=== PATIENT | female | born 1955 | race Asian ===

== ENCOUNTER 2022-10-02 05:57 | Observation (INO) | payer OTHER, BC ==
[2022-09-28 10:49] LABS: Absolute Lymphocytes (CBC) 1.4 K/uL (0.7-4.9); Hematocrit 40.5 % (36.0-45.0); Lymphocytes % 27.4 % (15.3-44.8); MCV 93.9 fL (80-100); MPV 7.4 fL (7.6-11.3); RBC Red Blood Cell Count 4.32 M/uL (3.86-4.86)
[2022-09-28 10:53] LABS: Specific Gravity 1.009 (1.005-1.030); Urine Bilirubin NEGATIVE (Negative); Urine Blood Negative (Negative); Urine Clarity Clear (Clear); Urine Color Light-Yellow (Yellow); Urine Glucose NEGATIVE (Negative); Urine Protein NEGATIVE (Negative); Urine Urobilinogen Normal (Normal)
[2022-09-28 11:24] LABS: Albumin 3.4 g/dL (3.4-5.0); Bilirubin Total 0.4 mg/dL (0.2-1.0); Potassium 3.7 mEq/L (3.5-5.1); Protein, Total 7.7 g/dL (6.4-8.2)
--- NOTE | 2022-09-28 12:25 | RAD REPORT ---
EXAM DESCRIPTION: RAD - Chest Pa And Lat (2 Views) - 09/28/2022 10:39 am CLINICAL HISTORY: pre op left total hip COMPARISON: No comparisons TECHNIQUE: PA and lateral views of the chest were obtained. FINDINGS: The lungs are clear. Heart size is normal and central vasculature is within normal limits. No pleural effusion or pneumothorax seen. No acute bony finding noted. IMPRESSION: No acute cardiopulmonary process.
[2022-09-28 13:29] LABS: Protime INR ND
--- NOTE | 2022-10-01 11:52 | EKG ---
Test Date: 2022-09-28 Test Time: 10:24:53 Aligner: ROHAN MEASUREMENT RESULTS: Intervals: Rate: 64 [place]: 160 QRSD: 86 QT: 418 QTc: 431 [place]: P: 34 [place]: 160 QRS: 6 T: 21 INTERPRETIVE STATEMENTS: Normal sinus rhythm Nonspecific T wave abnormality Abnormal ECG No previous ECG available for comparison Electronically Signed On 10-01-22 11:47:12 CDT by Lizandro Streeter
--- NOTE | 2022-10-01 15:43 | EKG ---
Test Date: 2022-09-28 Test Time: 10:25:24 Ham Clerk: ROHAN MEASUREMENT RESULTS: Intervals: Rate: 61 [place]: 164 QRSD: 82 QT: 418 QTc: 420 [place]: P: 22 [place]: 164 QRS: 7 T: 21 INTERPRETIVE STATEMENTS: Normal sinus rhythm Cannot rule out Anterior infarct, age undetermined Abnormal ECG Compared to ECG 09/28/2022 10:24:53 Myocardial infarct finding now present T-wave abnormality no longer present Electronically Signed On 10-01-22 15:41:57 CDT by Lizandro Streeter
[2022-10-02] MEDS ORDERED: CEFAZOLIN SODIUM 2 GM/VIAL ONE (06:17)
[2022-10-02] MEDS ORDERED: Ringers Lactate 1,000 ML IV ONE ×2 (06:17→08:07)
[2022-10-02] MEDS ORDERED: CELECOXIB 100 MG CAPSULE ONE (06:22)
[2022-10-02] MEDS ORDERED: GABAPENTIN 100 MG CAP ONE (06:23)
[2022-10-02] MEDS ORDERED: ACETAMINOPHEN 500 MG TAB ONE (06:23)
[2022-10-02] MEDS ORDERED: Oxycodone HCl/Acetaminophen 1 TAB TAB ONE (06:23)
[2022-10-02] MEDS ORDERED: BUPIVACAINE 0.75% (PF) 2 ML SP ONE (06:27)
[2022-10-02] MEDS ORDERED: MORPHINE SULFATE/PF 1 MG/ML (10 ML AMP) ONE (06:27)
[2022-10-02] MEDS ORDERED: propofoL 200 MG/20 ML VIAL IV ONE ×2 (06:35→08:58)
[2022-10-02] MEDS ORDERED: LIDOCAINE 2% MPF 5 ML VIAL ONE (06:36)
[2022-10-02] MEDS ORDERED: FENTANYL CITR 100 MCG/2 ML ONE (06:42)
[2022-10-02] MEDS ORDERED: EPINEPHRINE/PF 1 MG/ML AMP ONE (06:42)
[2022-10-02] MEDS ORDERED: MIDAZOLAM HCL 2 MG/2 ML INJ ONE (06:42)
[2022-10-02] MEDS ORDERED: LIDOCAINE 1% MPF 2 ML AMPULE ONE (06:51)
[2022-10-02] MEDS ORDERED: TRANEXAMIC ACID 1,000 MG/10 ML VIAL IV ONE (07:03)
[2022-10-02] MEDS ORDERED: EPHEDRINE SULF 50 MG/ML VIAL ONE (07:46)
[2022-10-02] MEDS ORDERED: DOCUSATE NA 100 MG CAP PO PRN (09:18)
[2022-10-02] MEDS ORDERED: ONDANSETRON 4 MG/2 ML VIAL IV PRN (09:18)
--- NOTE | 2022-10-02 09:18 | P.BOP ---
Preoperative diagnosis: left severe hip arthritis Postoperative diagnosis: same Primary procedure: left total hip arthoplasty Estimated blood loss: 150ccs Anesthesia: Spinal Complications: None Drain(s): Urinary catheter Transferred to: Recovery Room Condition: Good
--- NOTE | 2022-10-02 09:48 | RAD REPORT ---
EXAM DESCRIPTION: RAD - Hip Left 1 View - 10/02/2022 9:27 am CLINICAL HISTORY: Left hip surgery FINDINGS: Intraoperative film demonstrates left hip prosthesis in place.
[2022-10-02 10:09] LABS: Hematocrit 34.3 % (36.0-45.0)
[2022-10-02] MEDS: DIPHENHYDRAMINE 50 MG/ML VIAL IV PRN ×2 (10:25→20:36)
--- NOTE | 2022-10-02 10:38 | P.CNS ---
Date of Consult: 10/02/22 Reason for Consult: Medical management. Requesting Physician: Jordan Escalona Chief Complaint: Left hip pain History of Present Illness: Patient is a 67-year-old female with a past medical history significant for GERD, osteoarthritis, peripheral neuropathy who presents for a planned procedure--left hip replacement. Patient reported that she has been having pain in the left hip for quite some time now and has been managing her pain with pain medication and conservative measures but pain became worse over time. Patient also reports weakness on the left lower extremity. Patient rated pain as 9/10 in severity and described pain as aching in quality. Patient denies any other signs and symptoms. Symptoms are aggravated or relieved by nothing. Patient agreed to have a left hip replacement with her surgeon. Patient tolerating procedure currently resting in bed. Allergies No Known Allergies Allergy (Verified 10/02/22 06:21) Home Medications: Gabapentin 600 mg PO TID 09/28/22 - Past Medical/Surgical History Diabetic: No -: numbness in right leg -: GERD -: OA -: Peripheral neuropathy. -: . - Family History Father Medical History: Heart disease - Social History Smoking Status: Never smoker Alcohol use: No CD- Drugs: No Caffeine use: Yes Place of Residence: Home Review of Systems General: Weakness Eyes: Unremarkable ENT: Unremarkable Respiratory: Unremarkable Cardiovascular: Unremarkable Gastrointestinal: Unremarkable Genitourinary: Unremarkable Musculoskeletal: Other (Left hip pain.) Integumentary: Unremarkable Neurological: Weakness Lymphatics: Unremarkable Physical Examination Temp Pulse Resp BP Pulse Ox 97 F 76 18 110/69 10/02/22 10:09 10/02/22 10:09 10/02/22 10:09 10/02/22 10:09 General: Alert, In no apparent distress, Oriented x3, Cooperative HEENT: Atraumatic, PERRLA, Mucous membr. moist/pink, EOMI, Sclerae nonicteric Neck: Supple, 2+ carotid pulse no bruit, No LAD, Without JVD or thyroid abnormality Respiratory: Clear to auscultation bilaterally, Normal air movement Cardiovascular: No edema, Regular rate/rhythm, Normal S1 S2 Capillary refill: <2 Seconds Gastrointestinal: Normal bowel sounds, Non-distended, No tenderness Musculoskeletal: No clubbing, No tenderness Integumentary: No rashes, No significant lesion, Other (Left hip incision.) Neurological: Normal speech, Normal tone, Normal affect Lymphatics: No axilla or inguinal lymphadenopathy Laboratory Data (last 24 hrs) 10/02/22 09:55: Hgb 11.4 L, Hct 34.3 L Conclusions/Impression: --Left hip osteoarthritis. Status post left hip replacement. Orthopedic surgery on board. PT eval and treat. Continue supportive care. --Acute pain\osteoarthritis.. We will manage pain with current pain medication regimen. --GERD. Patient placed on Protonix. --Peripheral neuropathy. Continue gabapentin. -- DVT prophylaxis with SCDs. Continue chemical prophylaxis in a.m. Physician Review: Patient Assessed, Agree with Above Assessment and Plan Critical Care: No
--- NOTE | 2022-10-02 11:08 | OP ---
Date of Procedure: 10/02/2022 Surgeon: Jordan Escalona MD Preoperative Diagnosis: Severe left hip arthritis. Postoperative Diagnosis: Severe left hip arthritis. Procedure: Left total hip arthroplasty using the Sana system. Estimated Blood Loss: 150 cc. Complications: There were no complications. Pathology Specimens: No pathology specimens sent. Indications For Operation: Ms. Mcintosh is a 67-year-old female, who unfortunately has severe debilitat ing hip pain and extremely severe arthritis of her left hip. She arrived to see me and risks, benefi ts, and alternatives to different methods of treating it has been discussed with her including the ri sks, benefits, and alternatives of total hip arthroplasty in particular. She says she understands ev erything as presented and wishes to proceed. Description Of Procedure: The patient was taken to the operating room. Spinal anesthesia was obtain ed by Anesthesia staff. Following this, she was then rolled right side down with an axillary roll an d properly positioned using hip positioners. All bony prominences being checked. After this, her le ft lower extremity was then prepped draped in the usual sterile fashion for the procedure and a stand ivette posterolateral incision was taken down carefully through the skin and soft tissues. Meticulous h emostasis being maintained using Bovie electrocautery. This leads down to the fascia. A small stab wound was made in the fascia and the gluteal tendon was palpated to ensure we were at the correct pos ition. This was then carried carefully up to near the tip of the greater trochanter where the gluteu s luís muscles were encountered. It was then curved gently backward and gluteus luís muscles w ere then split using finger pressure. After this, the sciatic nerve was palpated and protected as th e Charnley was placed and some bursal and fatty tissue were removed giving good visualization of the external rotators. The external rotators and capsule were then taken down and tagged for later repai r. The head was then dislocated and was found to be extremely misshapen. Attempts were made to size it, however, sizing it is not very rewarding as it was definitely not round, and attention was then turned to the acetabulum. The acetabulum was very much enlarged superiorly and anteriorly, and attem pts were made to deepen the socket before actual reaming in position. This was deepened. It was the n reamed to a size 53. A 54 was then placed. It appeared to be very well positioned, very good bite , and quite stable. Attention was then turned to the femur and a coin box inspector as well as canal finding reamer were then used. It was then broached up to a size 4. At this point, x-rays were taken to as sure good placement of the cup as well as sizing of the broach. The broach appeared that it could go 1 size larger to be a size 5. The position of the cup appeared good. After this, the femur was the n broached to a size 5 and a size 20 screw was then placed in the acetabulum as there was some overha ng from the morphology of the socket. The liner was then placed and the final stem #[address] It was then relocated with the -4 ball as this appeared to be the most appropriate. The neck cut was standard and the stem was not prominent, therefore, it was felt that -4 done that we would not g o any shorter than that. She was then extremely stable to full flexion, adduction, and internal rota tion. The wound was copiously irrigated. The external rotators and capsule were then repaired back to the trochanter via bone tunnels. After this, the wound was irrigated and the fascia was closed in a watertight fashion using heavy Vicryl sutures. This was followed by closure of the skin using Tung ryl followed by ashley. The patient was then placed in Aquacel dressing and taken to the recovery r oom. /MOISES Voice ID: [id number] Report ID: [id number]
--- OUTSIDE RECORDS SUMMARY | 2022-10-02 11:27 | XMS REPORT | Continuity of Care Document ---
:1955 Author Organization [facility] t Address [address] [place] [address] Care Team Providers Name Role Phone ZACH PALMER Primary Care Physician Unavailable ELIEL GEE Attending Clinician Unavailable ARMINDA MURPHY Attending Clinician Unavailable Sam Hwang Attending Clinician GIANCARLO LOPEZ Attending Clinician Unavailable Giancarlo Lopez MD Attending Clinician Doctor Unassigned, [place] Attending Clinician Unavailable Zach Palmer Attending Clinician Eliel Gee MD Attending Clinician DARRION STALLWORTH Attending Clinician Unavailable Darrion Stallworth MD Attending Clinician BOBBY MCINTOSH Attending Clinician Unavailable Behzad Fay PT Attending Clinician Unavailable Bobby Mcintsoh MD Attending Clinician BLU_Luiza_Montrell_ Attending Clinician Unavailable Clinic, Pt/Ortho Walk In Attending Clinician Unavailable Only, Adc Test Attending Clinician Unavailable Eliel Guzmán MD Attending Clinician ELIEL GUZMÁN Attending Clinician Unavailable Jose Orozco Attending Clinician Elza Miller MD Attending Clinician ELZA MILLER Attending Clinician Unavailable Lambert RELAY REPAIRER, Tamera J Attending Clinician TAMERA VERDIN Attending Clinician Unavailable Unknown, Attending Attending Clinician Unavailable SINGH FERREIRA Attending Clinician Unavailable Singh Ferreira MD Attending Clinician [facility], [facility] Nurse Visit Alessnadra Attending Clinician UnavailEliel Robertson MD Attending Clinician ELIEL MASON Attending Clinician Unavailable Karlos Dejesus MD Attending Clinician MAURI LOPEZ Attending Clinician Unavailable [facility] Attending Clinician Unavailable Mauri Lopez MD Attending Clinician VISIT, NURSE AVN Attending Clinician Unavailable Marissa Daly Attending Clinician HIMA MEADOWS M.D. Attending Clinician Unavailable LEIA CONTRERAS M.D. Attending Clinician Unavailable SIOBHAN RODRIGES Attending Clinician Unavailable KAMILA DOVE M.D. Attending Clinician Unavailable WILBERT AVENDANO M.D. Attending Clinician Unavailable MELISSA NATARAJAN M.D. Attending Clinician Unavailable Martha Hernandez Attending Clinician Greg Gilliland Attending Clinician GREG GILLILAND M.D. Attending Clinician Unavailable ELIEL GEE Admitting Clinician Unavailable Eliel Gee MD Admitting Clinician BLU_Luiza_Shelby Admitting Clinician Unavailable DARRION STALLWORTH Admitting Clinician Unavailable Payers Payer Name Policy Type Policy Number Effective Date Expiration Date S kristie MEDICARE PART A AND [id number] 2021 2021 B 00:00:00 00:00:00 [facility] [id number] 2018 CHOICE 00:00:00 MEDICARE PART A \T\ [id number] 2021 B 00:00:00 BC TRADITIONAL [id number] 2022 00:00:00 MARIALUISA/ANIA [id number] 2021 MEDICARE ADVANTAGE 00:00:00 Problems Condition Condition Condition Status Onset Resolution Last Treating Co mments Source Name Details Category Date Date Treatment Clinician Date LUMBAR LUMBAR Diagnosis Active 2022-09-11 Me moria RADIC RADIC 04-09 17:04:00 l Active 08:00: Miguel 04/09/2022 00 [facility] Impaired Impaired Disease Active Unive rs functional functional 8-07 it y of mobility, mobility, [place] balance, balance, 00 Med[place] l gait, and gait, and Bran ch endurance endurance Muscular Muscular Disease Active Unive rs weakness weakness 8 ity of 00:00: [place] 00 Medical Branch Arthritis Arthritis Disease Active Overview: Univers of left of left 7-20 Formattin ity o f hip hip 00:00: g of this [place] note Medical might be Branch different from the original. Added automatic ally from request for surgery [id number] Left hip Left hip Disease Active Overview: Un albert pain pain 4-04 Formattin ity of 00:00: g of this [place] note Medical might be Branch different from the original. Added automatic ally from request for surgery [id number] Z12.39 - Z12.39 - Diagnosis Active 2019-08-07 Memoria ENCOUNTER ENCOUNTER 06-02 06:13:00 l FOR OTH FOR OTH 00:01: Isabel SCREENING SCREENING 00 FO FO Active 06/03/2019 [facility] [place] Obesity Obesity Disease Active 2018-03 Univers (BMI (BMI 0-10 ity of 30-39.9) 30-39.9) 00:00: [place] 00 Medical Branch LUMBAR/CER LUMBAR/CE Diagnosis Active 2017-05-22 Memoria VICAL RVICAL 05-09 09:55:00 l RADIC RADIC 08:00: Miguel Active 00 05/09/2017 [facility] CERVICAL/L Diagnosis Active 2016-032017-02-05 Memoria UMBAR CERVICAL/L 03-18 17:56:00 l RADICULOPA UMBAR 08:00: Bony n THY RADICULOPA 00 THY Active 01/16/2017 [facility] UNK UNK Diagnosis Active 2016-12-13 Mem oria Active 11-02 06:41:00 l 11/02/2016 00:00: Bony guerrier 00 [place] CERVICAL CERVICAL Diagnosis Active 2016-11-02 Memoria RADIC/LUMB RADIC/LUMB 7- 16:35:00 l AR RADIC AR RADIC 08:00: Bony n Active 00 09/19/2016 [facility] [place] [facility] [place] M25.532 - M25.532 - Diagnosis Active 2016-10-13 Memoria PAIN IN PAIN IN 09-06 16:08:00 l LEFT WRIST LEFT WRIST 00:01: He rmann Active 00 09/06/2016 [facility] R41.3 - R41.3 - Diagnosis Active 2016-07-30 Memoria OTHER OTHER -20 10:27:00 l AMNESIA AMNESIA 00:01: Isabel Active 00 07/05/2016 [facility] [place] Refractive Refractive Disease Active H arris error error 10-10 Health 00:00: 00 Dry eyes, Dry eyes, Disease Active Dev[facility] bilateral bilateral 10-10 Heal th 00:00: 00 Dyspepsia Dyspepsia Disease Active [facility] ris - Health 00:00: 00 Patient Patient Problem Active 2022-09-10 Me moria encounter encounter 07:58:06 l status status Miguel (finding) (finding) Active Problem 09/10/2022 Medical Group,[facility] [place] Piriformis Problem Active 2022-09-10 M emoria syndrome Piriformis 07:58:06 l (disorder) syndrome Herm tracee (disorder) [facility] Seasonal Seasonal Problem Active 2022-09-10 Memoria allergic allergic 07:58:06 l rhinitis rhinitis Bony n (disorder) (disorder) Active Problem 09/10/2022 Medical Group,[facility], [facility] [place] [place] [facility] Stenosis Stenosis Problem Active 2022-09-10 Memoria of of 07:58:[address] [facility] bra bral foramina foramina (disorder) (disorder) Active Problem 09/10/2022 Medical Group, [facility] Vitamin D Vitamin D Problem Active 2022-09-10 Memoria deficiency deficiency 07:58:06 l (disorder) (disorder) He rmann Active Problem 09/10/2022 Medical Group,[facility], [facility] Osteoarthr Osteoarth Problem Active 2022-09-10 Memoria itis of ritis of 07:58:06 l left hip left hip Bony n joint joint (disorder) (disorder) Active Problem 09/10/2022 [facility] [place] PAIN IN PAIN IN Diagnosis Active 2022-09-05 Memoria LEFT HIP LEFT HIP 13:44:00 l Active Bony n [facility] MUSCLE MUSCLE Diagnosis Active 2022-09-05 M emoria WEAKNESS WEAKNESS 13:44:00 l (GENERALIZ (GENERALIZ [facility] ED) ED) Active [facility] DIFFICULTY DIFFICULT Diagnosis Active 2022-09-05 Memoria IN Y IN 13:44:00 l WALKING, WALKING, Bony n NOT NOT ELSEWHERE ELSEWHERE CLA CLA Active [facility] Lumbar Lumbar Problem Active 2022-09-10 Sammy hilary radiculopa radiculopa 07:58:06 l thy thy Isabel (disorder) (disorder) Active Problem 09/10/2022 Medical Group,[facility] [place] Allergic Allergic Problem Active 2022-09-10 Memoria reaction reaction 07:58:06 l to food to food Isabel (disorder) (disorder) Active Problem 09/10/2022 [facility] Gastroesop Gastroeso Problem Active 2022-09-10 Memoria hageal phageal 07:58:06 l reflux reflux Isabel disease disease (disorder) (disorder) Active Problem 09/10/2022 Medical Group,[facility], [facility] Hyperchole Hyperchol Problem Active 2022-09-10 Memoria sterolemia esterolemi 07:58:06 l (disorder) a Bony n (disorder) Active Problem 09/10/2022 Medical Group,[facility], [facility] Low back Low back Problem Active 2022-09-10 Memoria strain strain 07:58:06 l (disorder) (disorder) He rmann Active Problem 09/10/2022 Medical Group, [facility] Obesity Obesity Problem Active 2022-09-10 Me moria (disorder) (disorder) 07:58:06 l Active Miguel Problem 09/10/2022 Medical Group,[facility], [facility] Onychomyco Problem Active 2022-09-10 M emoria sis of Onychomyco 07:58:06 l toenails sis of Isabel (disorder) toenails (disorder) Active Problem 09/10/2022 Medical [facility], [facility] Overweight Overweigh Problem Active 2022-09-10 Memoria (finding) t 07:58:06 l (finding) Miguel Active Problem 09/10/2022 [facility] Encounter Problem 2019-08-06 Me moria for Encounter 22:50:42 l screening for Isabel mammogram screening for mammogram malignant for neoplasm malignant of breast neoplasm of breast 08/06/2019 [facility] Breast Breast Problem 2017-03-17 Sammy hilary implant implant 01:26:20 l status status Isabel 03/17/2017 [facility] Alzheimer' Alzheimer Problem 2017-09-26 Memoria s disease 's disease 11:40:11 l with early with early He rmann onset onset 09/26/2017 [facility] Cervicalgi Problem 2017-09-26 M emoria a Cervicalgi 11:40:11 l a Isabel 09/26/2017 [facility] Knee pain Knee pain Problem Resolve 2021-10-23 Memoria (finding) (finding) d 02:11:18 l Resolved Miguel Problem 10/23/2021 Medical Group,[facility], [facility] Carpal Carpal Problem Resolve 2021-10-23 Mem oria tunnel tunnel d 02:11:18 l syndrome syndrome Bony n (disorder) (disorder) Resolved Problem 10/23/2021 Medical Group,[facility], [facility] [place] [facility] Hemorrhoid Hemorrhoi Problem Resolve 2021-10-23 Memoria s ds d 02:11:18 l (disorder) (disorder) He rmann Resolved Problem 10/23/2021 [facility], [facility] [place] [facility] Alzheimer' Alzheimer Problem Active 2020-05-20 Memoria s disease 's disease 02:20:34 l (disorder) (disorder) He rmann Active Problem 05/20/2020 [facility], [facility] [place] [facility] History of History of Problem Resolve [facility] gastroesop gastroesop d Ph ysici hageal hageal ans reflux reflux (GERD) (GERD) History of History of Problem Resolve UT Migraine Migraine d Physic i ans Colon Colon Problem Active UT cancer cancer Physici screening screening ans External External Problem Active UT hemorrhoid hemorrhoid Ph ysici s s ans GERD GERD Problem Active UT (gastroeso (gastroeso Ph ysici phageal phageal ans reflux reflux disease) disease) Insomnia Insomnia Problem Active UT due to due to Physici medical medical ans condition condition Piriformis Piriformis Problem Active U T syndrome syndrome Physic i of left of left ans side side Lumbar Lumbar Problem Active UT disc disc Physici herniation herniation an s Foraminal Foraminal Problem Active UT stenosis stenosis Physic i of lumbar of lumbar ans region region Radicular Radicular Problem Active UT pain of pain of Physici lumbosacra lumbosacra an s l region l region [facility] Problem Active UT spinal spinal Physici stenosis stenosis ans 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 Ph ysici s s ans Sacroiliac Sacroiliac Problem Active U T joint joint Physici disease disease ans Lumbar Lumbar Problem Active UT facet facet Physici joint pain joint pain an s History of Past Illness Condition Condition Condition Status Onset Resolution Last Treating Co mments Source Name Details Category Date Date Treatment Clinician Date 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 2022-07-01 2022-07-01 Memoria current current - 22:03:53 22:03:53 l use of use of 13:13: Miguel non-steroi non-steroi 00 renaldo renaldo anti-infla anti-infla mmatory mmatory drug drug (situation (situation ) ) 06/28/2022 Diagnosis 07/01/2022 [facility] [place] Encounter Encounter Problem 2021-10-07 2021-10-07 Memoria for for - 03:37:52 03:37:52 l immunizati immunizati 14:03: Oniel vale on on 10/04/2021 10/07/2021 Medical Group Encounter Encounter Problem 2021-10-07 2021-10-07 Memoria for for 10-01 03:37:52 03:37:52 l general general 13:20: Miguel adult adult 00 medical medical examinatio examinatio n without n without abnormal abnormal findings findings 10/01/2021 10/07/2021 Medical Group Radiculopa Radiculop Problem 2021-08-20 2021-08-20 Memoria thy, athy, 08-15 02:39:28 02:39:28 l lumbar lumbar 18:07: Miguel [facility] region 00 08/15/2021 08/20/2021 [facility] Group,[facility] Allergic Allergic Problem 2021-04-22 2021-04-22 Memoria rhinitis, rhinitis, 2- 02:41:47 02:41:47 l unspecifie unspecifie 15:24: Oniel vale d d 00 04/19/2021 04/22/2021 Medical Group Radiculopa Radiculop Problem 2017-09-26 2017-09-26 Memoria thy, athy, 4-13 11:40:11 11:40:11 l cervical cervical 04:58: Bony region region 18 06/28/2017 09/26/2017 [facility] Allergies, Adverse Reactions, Alerts Allergy Allergy Status Severity Reaction(s) Onset Inactive Treating Comm ents Source Name Type Date Date Clinician Dayaomepra Propensi Active Other 2012- Itching Elsie is zole ty to 2-30 [facility] Sodium adverse 00:00: reaction 00 s to drug Bactrim< Bactrim< Active Memori a sup>1</s sup>1</s l up> up> Miguel NO KNOWN Drug Active Univers ALLERGIE Class ity of S [facility] Family History Family Member Diagnosis Comments Start Date Stop Date Source Natural father Heart Rickey Hope [facility] Father Family history of cardiac [facility] disorder Social History Social Habit Start Date Stop Date Quantity Comments Source Sexual orientation [facility] Gender identity Rickey chen Exposure to 2022-04-21 2022-05-01 Not sure University of SARS-CoV-2 (event) 00:00:00 08:42:00 [facility] Tobacco use and 2022-03-22 2022-03-22 Smokeless Universit y of exposure 00:00:00 00:00:00 tobacco non-user [facility] Alcohol intake 2021-07-13 2021-07-13 Current Rickey Hope [facility] 00:00:00 00:00:00 non-drinker of alcohol (finding) History of Social 2021-07-13 2021-07-13 [facility] function 00:00:00 00:00:00 Sex [birth year] [address] Oniel chen 00:00:00 00:00:00 Smoking Status Start Date Stop Date Source Tobacco smoking status [facility] Medications Ordered Filled Start Stop Current Ordering Indication Dosage Frequency Signature Comments Components Source Medication Medication Date Date Medication? Clinician (SIG) Name Name bupivacaine 2022- No PRN, Unive rs (preserv 05-03 Starting ity of free) 0.5% 14:22: 14:43 on Sat s (SENSORCAIN 00 :15 05/03/22 at [facility]) 0.5 821, Branch % (5 mg/mL) Intra-op 9 mL, methylPREDN ISolone acetate (DEPO-MEDRO L) 80 mg/mL 80 mg lidocaine 2022- No PRN, Univers 1% (PF) 05-03 Starting ity of (XYLOCAINE) 14:22: 14:43 on Sat [place] as injection 00 :15 05/03/22 at [facility] 0822, Branch Until Sat05/03/22 at 0843, Routine, Intra-op iohexoL 2022- No PRN, Univers (OMNIPAQUE 2-16 -16 Starting ity of 300-50 mL)) 14:07: 14:43 on Berenice [place] as injection 00 :15 05/03/22 at [facility] 0807, Branch Until Berenice 05/03/22 at 0843, Routine, Intra-op lactated 3-0 3- No 1000mL at 42 Unive rs ringers IV 2-16 02-16 mL/hr, ity of infusion 13:30: 13:37 1,000 mL, [place] as 1,000 mL 00 :00 IV Medical Infusion, Branch ONCE, 1 dose, On Berenice 05/03/22 at 0730, Routine, DSU Pre-op lactated 3-0 3- No 1000mL at 42 Unive rs ringers IV 16 02-16 mL/hr, ity of infusion 13:30: 13:37 1,000 mL, [place] as 1,000 mL 00 :00 IV Medical Infusion, Branch ONCE, 1 dose, On Berenice 05/03/22 at 0730, Routine, DSU Pre-op cyclobenzap 2023-0 Yes 7.5mg Take 7.5 U nivers rine 7.5 mg 2-16 mg by ity of tablet 09:01: mouth at [place] [address] bedtime. Medical Branch cyclobenzap 2023-0 Yes 7.5mg Take 7.5 U nivers rine 7.5 mg 2-16 mg by ity of tablet 09:01: mouth at [place] [address] bedtime. Medical Branch cyclobenzap 2023-0 Yes 7.5mg Take 7.5 U nivers rine 7.5 mg 2-16 mg by ity of tablet 09:01: mouth at [place] [address] bedtime. Medical Branch cyclobenzap 2023-0 Yes 7.5mg Take 7.5 U nivers rine 7.5 mg 2-16 mg by ity of tablet 09:01: mouth at [place] [address] bedtime. Medical Branch cyclobenzap 2023-0 Yes 7.5mg Take 7.5 U nivers rine 7.5 mg 2-16 mg by ity of tablet 09:01: mouth at [place] [address] bedtime. Medical Branch cyclobenzap 2023-0 Yes 7.5mg Take 7.5 U nivers rine 7.5 mg 2-16 mg by ity of tablet 09:01: mouth at [place] 44 bedtime. Medical Branch cyclobenzap 2023-0 2023- No [id number] 5mg Take 1 Univers rine 5 mg 1-05 02-05 tablet by ity of tablet 00:00: 05:59 mouth in [place] 00 :00 the Medical morning Branch and 1 tablet at noon and 1 tablet in the evening. Do all this for 30 days. cyclobenzap 2023-0 2023- No [id number] 5mg Take 1 Univers rine 5 mg 1-05 02-05 tablet by ity of tablet 00:00: 05:59 mouth in [place] 00 :00 the Medical morning Branch and 1 tablet at noon and 1 tablet in the evening. Do all this for 30 days. cyclobenzap 2023-0 2023- No [id number] 5mg Take 1 Univers rine 5 mg 1-05 02-05 tablet by ity of tablet 00:00: 05:59 mouth in [place] 00 :00 the [facility] morning [place] and 1 tablet at noon and 1 tablet in the evening. Do all this for 30 days. cyclobenzap 2023-0 2023- No [id number] 5mg Take 1 Univers rine 5 mg 1-05 02-05 tablet by ity of tablet 00:00: 05:59 mouth in [place] 00 :00 the [facility] morning Branch and 1 tablet at noon and 1 tablet in the evening. Do all this for 30 days. cyclobenzap 2023-0 2023- No [id number] 5mg Take 1 Univers rine 5 mg 1-05 02-05 tablet by ity of tablet 00:00: 05:59 mouth in [place] 00 :00 the Medical morning Branch and 1 tablet at noon and 1 tablet in the evening. Do all this for 30 days. cyclobenzap 2023-0 2023- No [id number] 5mg Take 1 Univers rine 5 mg 1-05 02-05 tablet by ity of tablet 00:00: 05:59 mouth in [place] 00 :00 the Medical morning Branch and 1 tablet at noon and 1 tablet in the evening. Do all this for 30 days. cyclobenzap 2023-0 2023- No [id number] 5mg Take 1 Univers rine 5 mg 1-05 02-05 tablet by ity of tablet 00:00: 05:59 mouth in [place] 00 :00 the [facility] morning [place] and 1 tablet at noon and 1 tablet in the evening. Do all this for 30 days. meloxicam 2022-0 2022- No [id number] 7.5mg Take 1 U nivers 7.5 mg 03-22 tablet by ity of tablet 00:00: 05:59 mouth in [place] 00 :00 [facility] for 21 days. meloxicam 2022-0 2022- No [id number] 7.5mg Take 1 U nivers 7.5 mg 03-22 tablet by ity of tablet 00:00: 05:59 mouth in [place] 00 :00 [facility] for 21 days. meloxicam 2022-0 2022- No [id number] 7.5mg Take 1 U nivers 7.5 mg 03-22 tablet by ity of tablet 00:00: 05:59 mouth in [place] 00 :00 [facility] for 21 days. meloxicam 2022-0 2022- No [id number] 7.5mg Take 1 U nivers 7.5 mg 03-22 tablet by ity of tablet 00:00: 05:59 mouth in [place] 00 :00 [facility] for 21 days. meloxicam 2022-0 2022- No [id number] 7.5mg Take 1 U nivers 7.5 mg 03-22 tablet by ity of tablet 00:00: 05:59 mouth in [place] 00 :00 [facility] for 21 days. meloxicam 2022-0 2022- No [id number] 7.5mg Take 1 U nivers 7.5 mg 03-22 tablet by ity of tablet 00:00: 05:59 mouth in [place] 00 :00 [facility] for 21 days. gabapentin 2021-03 Yes See Memoria 600 mg oral 1-14 Instructio l tablet 20:55: ns, 1 tab Bony n 00 PO each a.m. 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, Height, 72.818, kg, 01/29/22 14:26:00 BLOCK SEALER, Weight RABEprazole 2021-03 Yes 90 tab, 0 M emoria 20 mg oral 1-14 Refill(s) l enteric 20:26: Miguel coated 00 tablet RABEprazole 2021-03 Yes 90 tab, 0 M emoria 20 mg oral 1-14 Refill(s) l enteric 20:26: Isabel coated 00 tablet diclofenac Yes 2 gm, TOP, M emoria topical 1% 8-04 QID, # 100 l gel 19:10: gm, 3 Miguel 00 Refill(s), Pharmacy: [facility] ([facility] 162.56, cm, 10/04/21 8:35:00 CDT, Height, 73.909, kg, 10/04/21 8:35:00 CDT, Weight ibuprofen Yes 800 mg = 1 Me moria 800 mg oral 8-04 tab, PO, l tablet 19:10: TID, PRN Isabel 00 Pain, # 270 tab, 3 Refill(s), Pharmacy: [facility] ([facility]), 162.56, cm, 10/04/21 8:35:00 CDT, Height, 73.909, kg, 10/04/21 8:35:00 CDT, Weight diclofenac Yes 2 gm, TOP, M emoria topical 1% 804 QID, # 100 l gel 19:10: gm, 3 Isabel 00 Refill(s), Pharmacy: [facility] ([facility]), 162.56, cm, 10/04/21 8:35:00 CDT, Height, 73.909, kg, 10/04/21 8:35:00 CDT, Weight ibuprofen Yes 800 mg = 1 Me moria 800 mg oral 10-19 tab, PO, l tablet 19:10: TID, PRN Isabel 00 Pain, # 270 tab, 3 Refill(s), Pharmacy: [facility] ([facility]), 162.56, cm, 10/04/21 8:35:00 CDT, Height, 73.909, kg, 10/04/21 8:35:00 CDT, Weight meloxicam 2021- No [id number] 7.5mg Take 1 Univers (MOBIC) 7.5 10-19 tablet by i ty of mg tablet 00:00: 04:59 mouth in [place] 00 :00 the Medical morning Branch for 30 days. meloxicam 2021- No [id number] 7.5mg Take 1 Univers (MOBIC) 7.5 10-19 [id number] tablet by i ty of mg tablet 00:00: 04:59 mouth in [place] 00 :00 the Medical morning Branch for 30 days. meloxicam 2021- No [id number] 7.5mg Take 1 Univers (MOBIC) 7.5 10-19 tablet by i ty of mg tablet 00:00: 04:59 mouth in [place] 00 :00 the Medical morning Branch for 30 days. cyclobenzap Yes 7.5mg Take 7.5 U nivers rine 7.5 mg 7-28 mg by ity of tablet 08:28: mouth at [place] [address] bedtime. Medical Branch cyclobenzap 2022-0 Yes 7.5mg Take 7.5 U nivers rine 7.5 mg 7-28 mg by ity of tablet 08:28: mouth at [place] [address] bedtime. Medical Branch cyclobenzap 2022-0 Yes 7.5mg Take 7.5 U nivers rine 7.5 mg 7-28 mg by ity of tablet 08:28: mouth at [place] [address] bedtime. Medical Branch cyclobenzap 2022-0 Yes 7.5mg Take 7.5 U nivers rine 7.5 mg 7-28 mg by ity of tablet 08:28: mouth at [place] [address] bedtime. Medical Branch cyclobenzap 2022-0 Yes 7.5mg Take 7.5 U nivers rine 7.5 mg 7-28 mg by ity of tablet 08:28: mouth at [place] [address] bedtime. Medical Branch cyclobenzap 2022-0 Yes 7.5mg Take 7.5 U nivers rine 7.5 mg 7-28 mg by ity of tablet 08:28: mouth at [place] [address] bedtime. Medical Branch cyclobenzap 2022-0 Yes 7.5mg Take 7.5 U nivers rine 7.5 mg 7-28 mg by ity of tablet 08:28: mouth at [place] [address] bedtime. [facility] cyclobenzap 2022-0 Yes 7.5mg Take 7.5 U nivers rine 7.5 mg 7-28 mg by ity of tablet 08:28: mouth at [place] [address] bedtime. [facility] Branch cyclobenzap 2022-0 Yes 7.5mg Take 7.5 U nivers rine 7.5 mg 7-28 mg by ity of tablet 08:28: mouth at [place] [address] bedtime. [facility] Branch cyclobenzap 2022-0 Yes 7.5mg Take 7.5 U nivers rine 7.5 mg 7-28 mg by ity of tablet 08:28: mouth at [place] [address] bedtime. [facility] Branch cyclobenzap 2022-0 Yes 7.5mg Take 7.5 U nivers rine 7.5 mg 7-28 mg by ity of tablet 08:28: mouth at [place] [address] bedtime. [facility] cyclobenzap 2022-0 Yes 7.5mg Take 7.5 U nivers rine 7.5 mg 7-28 mg by ity of tablet 08:28: mouth at [place] [address] bedtime. [facility] cyclobenzap 2022-0 Yes 7.5mg Take 7.5 U nivers rine 7.5 mg 7-28 mg by ity of tablet 08:28: mouth at [place] [address] bedtime. [facility] Branch cyclobenzap 2022-0 Yes 7.5mg Take 7.5 U nivers rine 7.5 mg 7-28 mg by ity of tablet 08:28: mouth at [place] [address] bedtime. [facility] Branch cyclobenzap 2022-0 Yes 7.5mg Take 7.5 U nivers rine 7.5 mg 7-28 mg by ity of tablet 08:28: mouth at [place] [address] bedtime. [facility] Branch cyclobenzap 2022-0 Yes 7.5mg Take 7.5 U nivers rine 7.5 mg 7-28 mg by ity of tablet 08:28: mouth at [place] [address] bedtime. [facility] Branch cyclobenzap 2022-0 Yes 7.5mg Take 7.5 U nivers rine 7.5 mg 7-28 mg by ity of tablet 08:28: mouth at [place] [address] bedtime. [facility] Branch cyclobenzap 2022-0 Yes 7.5mg Take 7.5 U nivers rine 7.5 mg 7-28 mg by ity of tablet 08:28: mouth at [place] [address] bedtime. [facility] Branch cyclobenzap 2022-0 Yes 7.5mg Take 7.5 U nivers rine 7.5 mg 7-28 mg by ity of tablet 08:28: mouth at [place] [address] bedtime. [facility] Branch diclofenac 2022-0 Yes 2 gm, TOP, M emoria topical 1% 7-20 QID, # 240 l gel 14:11: gm, 5 Isabel 00 Refill(s), Pharmacy: [facility] [id number], 162.56, cm, 10/04/21 8:35:00 CDT, Height, 73.909, kg, 10/04/21 8:35:00 CDT, Weight diclofenac 2-0 Yes 2 gm, TOP, M emoria topical 1% 7-20 QID, # 240 l gel 14:11: gm, 5 Refill(s), Pharmacy: [facility] [id number], 162.56, cm, 10/04/21 8:35:00 CDT, Height, 73.909, kg, 10/04/21 8:35:00 CDT, Weight diclofenac No 2 gm, TOP, M emoria topical 1% 7-20 QID, 0 l gel 13:34: Refill(s) diclofenac 2021-0 No 2 gm, TOP, M emoria topical 1% 7-20 QID, 0 l gel 13:34: Refill(s) urea 40 % 0 Yes [id number] Apply two [facility] cream 6-13 times ity of 00:00: daily to [place] 00 feet. Medical Branch urea 40 % 2021-0 Yes [id number] Apply two [facility] cream 6-13 times ity of 00:00: daily to [place] 00 feet. Medical Branch urea 40 % 2021-0 Yes [id number] Apply two [facility] cream 6-13 times ity of 00:00: daily to [place] 00 feet. Medical Branch urea 40 % 2021-0 Yes [id number] Apply two [facility] cream 6-13 times ity of 00:00: daily to [place] 00 feet. Medical Branch urea 40 % 2021-0 Yes [id number] Apply two [facility] cream 6-13 times ity of 00:00: daily to [place] 00 feet. Medical Branch urea 40 % 2021-0 Yes [id number] Apply two [facility] cream 6-13 times ity of 00:00: daily to [place] 00 feet. Medical Branch urea 40 % 2021-0 Yes [id number] Apply two [facility] cream 6-13 times ity of 00:00: daily to [place] 00 feet. Medical Branch urea 40 % 2021-0 Yes [id number] Apply two [facility] cream 6-13 times ity of 00:00: daily to [place] 00 feet. Medical Branch urea 40 % 2021-0 Yes [id number] Apply two [facility] cream 6-13 times ity of 00:00: daily to [place] 00 feet. Medical Branch urea 40 % 2021-0 Yes [id number] Apply two [facility] cream 6-13 times ity of 00:00: daily to [place] 00 feet. Medical Branch urea 40 % 2021-0 Yes [id number] Apply two [facility] cream 6-13 times ity of 00:00: daily to [place] 00 feet. Medical Branch urea 40 % 0 Yes [id number] Apply two [facility] cream 6-13 times ity of 00:00: daily to [place] 00 feet. Medical Branch urea 40 % 0 Yes [id number] Apply two [facility] cream 6-13 times ity of 00:00: daily to [place] 00 feet. Medical Branch urea 40 % 0 Yes [id number] Apply two [facility] cream 6-13 times ity of 00:00: daily to [place] 00 feet. Medical Branch urea 40 % 0 Yes [id number] Apply two [facility] cream 6-13 times ity of 00:00: daily to [place] 00 feet. Medical Branch urea 40 % 0 Yes [id number] Apply two [facility] cream 6-13 times ity of 00:00: daily to [place] 00 feet. Medical Branch urea 40 % Yes [id number] Apply two [facility] cream 6-13 times ity of 00:00: daily to [place] 00 feet. Medical Branch urea 40 % 0 Yes [id number] Apply two [facility] cream 6-13 times ity of 00:00: daily to [place] 00 feet. Medical Branch urea 40 % 0 Yes [id number] Apply two [facility] cream 6-13 times ity of 00:00: daily to [place] 00 feet. Medical Branch urea 40 % 0 Yes [id number] Apply two [facility] cream 6-13 times ity of 00:00: daily to [place] 00 feet. Medical Branch urea 40 % 0 Yes [id number] Apply two [facility] cream 6-13 times ity of 00:00: daily to [place] 00 feet. Medical Branch urea 40 % 0 Yes [id number] Apply two [facility] cream 6-13 times ity of 00:00: daily to [place] 00 feet. Medical Branch urea 40 % 0 Yes [id number] Apply two [facility] cream 6-13 times ity of 00:00: daily to [place] 00 feet. Medical Branch urea 40 % 0 Yes [id number] Apply two [facility] cream 6-13 times ity of 00:00: daily to [place] 00 feet. Medical Branch urea 40 % 0 Yes [id number] Apply two [facility] cream 6-13 times ity of 00:00: daily to [place] 00 feet. Medical Branch gabapentin 2022-0 Yes See Memoria 600 mg oral 6-02 Instructio l tablet 14:25: ns, 1 tab Bony n 00 PO each a.m. and 2 before bed, # 90 tab, 5 Refill(s), Pharmacy: [facility] [id number], 162.56, cm, 08/17/21 9:00:00 CDT, Height, 71, kg, 08/17/21 9:00:00 CDT, Weight ibuprofen 2022-0 Yes 800 mg = 1 Me moria 800 mg oral 6-02 tab, PO, l tablet 14:25: TID, PRN Miguel 00 Pain, # 90 tab, 5 Refill(s), Pharmacy: [facility] [id number], 162.56, cm, 08/17/21 9:00:00 CDT, Height, 71, kg, 08/17/21 9:00:00 CDT, Weight gabapentin 2-0 Yes See Memoria 600 mg oral 6-02 Instructio l tablet 14:25: ns, 1 tab Bony n 00 PO each a.m. and 2 before bed, # 90 tab, 5 Refill(s), Pharmacy: [facility] [id number], 162.56, cm, 08/17/21 9:00:00 CDT, Height, 71, kg, 08/17/21 9:00:00 CDT, Weight ibuprofen 2-0 Yes 800 mg = 1 Me moria 800 mg oral 6-02 tab, PO, l tablet 14:25: TID, PRN Isabel 00 Pain, # 90 tab, 5 Refill(s), Pharmacy: [facility] [id number], 162.56, cm, 08/17/21 9:00:00 CDT, Height, 71, kg, 08/17/21 9:00:00 CDT, Weight ibuprofen 2022-0 Yes [facility] 800 mg 6-02 ity of tablet 00:00: [place] [facility] ibuprofen 2022-0 Yes [facility] 800 mg 6-02 ity of tablet 00:00: [place] [facility] ibuprofen 2022-0 Yes [facility] 800 mg 6-02 ity of tablet 00:00: [place] [facility] ibuprofen 2022-0 Yes [facility] 800 mg 6-02 ity of tablet 00:00: [place] [facility] ibuprofen 2022-0 Yes [facility] 800 mg 6-02 ity of tablet 00:00: [place] 00 Medical Branch ibuprofen 2022-0 Yes [facility] 800 mg 6-02 ity of tablet 00:00: [place] 00 Medical Branch ibuprofen 2022-0 Yes [facility] 800 mg 6-02 ity of tablet 00:00: [place] 00 Medical Branch ibuprofen 2022-0 Yes [facility] 800 mg 6-02 ity of tablet 00:00: [place] 00 [facility] Branch ibuprofen 2022-0 Yes [facility] 800 mg 6-02 ity of tablet 00:00: [place] 00 [facility] ibuprofen 2022-0 Yes [facility] 800 mg 6-02 ity of tablet 00:00: [place] 00 [facility] Branch ibuprofen 2022-0 Yes [facility] 800 mg 6-02 ity of tablet 00:00: [place] [facility] ibuprofen 2022-0 Yes [facility] 800 mg 6-02 ity of tablet 00:00: [place] [facility] ibuprofen 2022-0 Yes [facility] 800 mg 6-02 ity of tablet 00:00: [place] [facility] ibuprofen 2022-0 Yes [facility] 800 mg 6-02 ity of tablet 00:00: [place] [facility] ibuprofen 2022-0 Yes [facility] 800 mg 6-02 ity of tablet 00:00: [place] [facility] ibuprofen 2022-0 Yes [facility] 800 mg 6-02 ity of tablet 00:00: [place] [facility] ibuprofen 2022-0 Yes [facility] 800 mg 6-02 ity of tablet 00:00: [place] [facility] ibuprofen 2022-0 Yes [facility] 800 mg 6-02 ity of tablet 00:00: [place] [facility] ibuprofen 2022-0 Yes [facility] 800 mg 6-02 ity of tablet 00:00: [place] [facility] ibuprofen 2022-0 Yes [facility] 800 mg 6-02 ity of tablet 00:00: [place] 00 Medical Branch ibuprofen 2022-0 Yes [facility] 800 mg 6-02 ity of tablet 00:00: [place] [facility] ibuprofen 2022-0 Yes [facility] 800 mg 6-02 ity of tablet 00:00: [place] 00 [facility] ibuprofen 2022-0 Yes [facility] 800 mg 6-02 ity of tablet 00:00: [place] 00 [facility] ibuprofen 2022-0 Yes [facility] 800 mg 6-02 ity of tablet 00:00: [place] [facility] ibuprofen 2022-0 Yes [facility] 800 mg 6-02 ity of tablet 00:00: [place] 00 [facility] Branch oct 2021-0 Yes [id number] Apply to Unive rs betamethaso 3-07 area(s) 2 ity of ne 00:00: (two) [place] dipropionat 00 times Medical e 0.05 % daily. Branch ointment oct 2021 Yes [id number] Apply to Unive rs betamethaso 3-07 area(s) 2 ity of ne 00:00: (two) [place] dipropionat 00 times Medical e 0.05 % daily. Branch ointment oct 2021 Yes [id number] Apply to Unive rs betamethaso 3-07 area(s) 2 ity of ne 00:00: (two) [place] dipropionat 00 times Medical e 0.05 % daily. Branch ointment oct 2021 Yes [id number] Apply to Unive rs betamethaso 3-07 area(s) 2 ity of ne 00:00: (two) [place] dipropionat 00 times Medical e 0.05 % daily. Branch ointment oct 2021 Yes [id number] Apply to Unive rs betamethaso 3-07 area(s) 2 ity of ne 00:00: (two) [place] dipropionat 00 times Medical e 0.05 % daily. Branch ointment oct 2021 Yes [id number] Apply to Unive rs betamethaso 3-07 area(s) 2 ity of ne 00:00: (two) [place] dipropionat 00 times Medical e 0.05 % daily. Branch ointment oct 2021 Yes [id number] Apply to Unive rs betamethaso 3-07 area(s) 2 ity of ne 00:00: (two) [place] dipropionat 00 times Medical e 0.05 % daily. Branch ointment oct 2021 Yes [id number] Apply to Unive rs betamethaso 3-07 area(s) 2 ity of ne 00:00: (two) [place] dipropionat 00 times Medical e 0.05 % daily. Branch ointment oct 2021 Yes [id number] Apply to Unive rs betamethaso 3-07 area(s) 2 ity of ne 00:00: (two) [place] dipropionat 00 times Medical e 0.05 % daily. Branch ointment oct 2021 Yes [id number] Apply to Unive rs betamethaso 3-07 area(s) 2 ity of ne 00:00: (two) [place] dipropionat 00 times Medical e 0.05 % daily. Branch ointment oct 2021 Yes [id number] Apply to Unive rs betamethaso 3-07 area(s) 2 ity of ne 00:00: (two) [place] dipropionat 00 times Medical e 0.05 % daily. Branch ointment oct 2021 Yes [id number] Apply to Unive rs betamethaso 3-07 area(s) 2 ity of ne 00:00: (two) [place] dipropionat 00 times Medical e 0.05 % daily. Branch ointment oct 2021 Yes [id number] Apply to Unive rs betamethaso 3-07 area(s) 2 ity of ne 00:00: (two) [place] dipropionat 00 times Medical e 0.05 % daily. Branch ointment oct 2021 Yes [id number] Apply to Unive rs betamethaso 3-07 area(s) 2 ity of ne 00:00: (two) [place] dipropionat 00 times Medical e 0.05 % daily. Branch ointment oct 2021 Yes [id number] Apply to Unive rs betamethaso 3-07 area(s) 2 ity of ne 00:00: (two) [place] dipropionat 00 times Medical e 0.05 % daily. Branch ointment oct 2021 Yes [id number] Apply to Unive rs betamethaso 3-07 area(s) 2 ity of ne 00:00: (two) [place] dipropionat 00 times Medical e 0.05 % daily. Branch ointment oct 2021 Yes [id number] Apply to Unive rs betamethaso 3-07 area(s) 2 ity of ne 00:00: (two) [place] dipropionat 00 times Medical e 0.05 % daily. Branch ointment oct 2021 Yes [id number] Apply to Unive rs betamethaso 3-07 area(s) 2 ity of ne 00:00: (two) [place] dipropionat 00 times Medical e 0.05 % daily. Branch ointment oct 2021 Yes [id number] Apply to [facility] rs betamethaso 3-07 area(s) 2 ity of ne 00:00: (two) [place] dipropionat 00 times Medical e 0.05 % daily. Branch ointment oct 2021 Yes [id number] Apply to [facility] rs betamethaso 3-07 area(s) 2 ity of ne 00:00: (two) [place] dipropionat 00 times Medical e 0.05 % daily. Branch ointment oct 2021 Yes [id number] Apply to [facility] rs betamethaso 3-07 area(s) 2 ity of ne 00:00: (two) [place] dipropionat 00 times Medical e 0.05 % daily. Branch ointment oct 2021 Yes [id number] Apply to [facility] rs betamethaso 3-07 area(s) 2 ity of ne 00:00: (two) [place] dipropionat 00 times Medical e 0.05 % daily. Branch ointment oct 2021 Yes [id number] Apply to [facility] betamethaso 3-07 area(s) 2 ity of ne 00:00: (two) [place] dipropionat 00 times Medical e 0.05 % daily. Branch ointment oct 2021 Yes [id number] Apply to [facility] rs betamethaso 3-07 area(s) 2 ity of ne 00:00: (two) [place] dipropionat 00 times Medical e 0.05 % daily. Branch ointment oct 2021 Yes [id number] Apply to [facility] betamethaso 3-07 area(s) 2 ity of ne 00:00: (two) [place] dipropionat 00 times Medical e 0.05 % daily. Branch ointment terbinafine 2020-03 Yes [id number] 250mg Take 1 Univers HCL 250 mg 2-01 tablet by ity of tablet 00:00: mouth [place] 00 daily. Medical Branch terbinafine 2020-03 Yes [id number] 250mg Take 1 [facility] HCL 250 mg 2-01 tablet by ity of tablet 00:00: mouth [place] 00 daily. Medical Branch terbinafine 2020-03 Yes [id number] 250mg Take 1 Univers HCL 250 mg 2-01 tablet by ity of tablet 00:00: mouth [place] 00 daily. [facility] terbinafine 2020-03 Yes [id number] 250mg Take 1 Univers HCL 250 mg 2-01 tablet by ity of tablet 00:00: mouth [place] 00 daily. [facility] terbinafine 2020-03 Yes [id number] 250mg Take 1 [facility] HCL 250 mg 2-01 tablet by ity of tablet 00:00: mouth [place] 00 daily. [facility] terbinafine 2020-03 Yes [id number] 250mg Take 1 [facility] HCL 250 mg 2-01 tablet by ity of tablet 00:00: mouth [place] 00 daily. [facility] terbinafine 2020-03 Yes [id number] 250mg Take 1 [facility] HCL 250 mg 2-01 tablet by ity of tablet 00:00: mouth [place] 00 daily. [facility] terbinafine 2020-03 Yes [id number] 250mg Take 1 [facility] HCL 250 mg 2-01 tablet by ity of tablet 00:00: mouth [place] 00 daily. [facility] terbinafine 2020-03 Yes [id number] 250mg Take 1 [facility] HCL 250 mg 2-01 tablet by ity of tablet 00:00: mouth [place] 00 daily. [facility] terbinafine 2020-03 Yes [id number] 250mg Take 1 [facility] HCL 250 mg 2-01 tablet by ity of tablet 00:00: mouth [place] 00 daily. [facility] terbinafine 2020-03 Yes [id number] 250mg Take 1 [facility] HCL 250 mg 2-01 tablet by ity of tablet 00:00: mouth [place] 00 daily. [facility] terbinafine 2020-03 Yes [id number] 250mg Take 1 [facility] HCL 250 mg 2-01 tablet by ity of tablet 00:00: mouth [place] 00 daily. [facility] terbinafine 2020-03 Yes [id number] 250mg Take 1 [facility] HCL 250 mg 2-01 tablet by ity of tablet 00:00: mouth [place] 00 daily. [facility] terbinafine 2020-03 Yes [id number] 250mg Take 1 [facility] HCL 250 mg 2-01 tablet by ity of tablet 00:00: mouth [place] 00 daily. [facility] terbinafine 2020-03 Yes [id number] 250mg Take 1 [facility] HCL 250 mg 2-01 tablet by ity of tablet 00:00: mouth [place] 00 daily. [facility] Branch terbinafine 2020-03 Yes [id number] 250mg Take 1 [facility] HCL 250 mg 2-01 tablet by ity of tablet 00:00: mouth [place] 00 daily. [facility] terbinafine 2020-03 Yes [id number] 250mg Take 1 [facility] HCL 250 mg 2-01 tablet by ity of tablet 00:00: mouth [place] 00 daily. [facility] terbinafine 2020-03 Yes [id number] 250mg Take 1 [facility] HCL 250 mg 2-01 tablet by ity of tablet 00:00: mouth [place] 00 daily. [facility] terbinafine 2020-03 Yes [id number] 250mg Take 1 [facility] HCL 250 mg 2-01 tablet by ity of tablet 00:00: mouth [place] 00 daily. [facility] terbinafine 2020-03 Yes [id number] 250mg Take 1 [facility] HCL 250 mg 2-01 tablet by ity of tablet 00:00: mouth [place] 00 daily. [facility] terbinafine 2020-03 Yes [id number] 250mg Take 1 [facility] HCL 250 mg 2-01 tablet by ity of tablet 00:00: mouth [place] 00 daily. [facility] Branch terbinafine 2020-03 Yes [id number] 250mg Take 1 [facility] HCL 250 mg 2-01 tablet by ity of tablet 00:00: mouth [place] 00 daily. [facility] terbinafine 2020-03 Yes [id number] 250mg Take 1 [facility] HCL 250 mg 2-01 tablet by ity of tablet 00:00: mouth [place] 00 daily. [facility] terbinafine 2020-03 Yes [id number] 250mg Take 1 [facility] HCL 250 mg 2-01 tablet by ity of tablet 00:00: mouth [place] 00 daily. [facility] terbinafine 2020-03 Yes [id number] 250mg Take 1 [facility] HCL 250 mg 2-01 tablet by ity of tablet 00:00: mouth [place] 00 daily. Medical Branch clobetasoL 2020- Yes [id number] Apply to Univers 0.05 % 1-24 area(s) 2 ity of ointment 00:00: (two) [place] 00 times Medical daily. Branch clobetasoL 2020- Yes [id number] Apply to Univers 0.05 % 1-24 area(s) 2 ity of ointment 00:00: (two) [place] 00 times Medical daily. Branch clobetasoL 2021-1 Yes [id number] Apply to Univers 0.05 % 1-24 area(s) 2 ity of ointment 00:00: (two) [place] 00 times Medical daily. Branch clobetasoL 2021-1 Yes [id number] Apply to Univers 0.05 % 1-24 area(s) 2 ity of ointment 00:00: (two) [place] times Medical daily. Branch clobetasoL 2021-1 Yes [id number] Apply to Univers 0.05 % 1-24 area(s) 2 ity of ointment 00:00: (two) [place] times Medical daily. Branch clobetasoL 2021-1 Yes [id number] Apply to Univers 0.05 % 1-24 area(s) 2 ity of ointment 00:00: (two) [place] times Medical daily. Branch clobetasoL 2021-1 Yes [id number] Apply to Univers 0.05 % 1-24 area(s) 2 ity of ointment 00:00: (two) [place] 00 times Medical daily. Branch clobetasoL 2021-1 Yes [id number] Apply to Univers 0.05 % 1-24 area(s) 2 ity of ointment 00:00: (two) [place] times Medical daily. Branch clobetasoL 2021-1 Yes [id number] Apply to Univers 0.05 % 1-24 area(s) 2 ity of ointment 00:00: (two) [place] times Medical daily. Branch clobetasoL 2021-1 Yes [id number] Apply to Univers 0.05 % 1-24 area(s) 2 ity of ointment 00:00: (two) [place] times Medical daily. Branch clobetasoL 2021-1 Yes [id number] Apply to Univers 0.05 % 1-24 area(s) 2 ity of ointment 00:00: (two) [place] times Medical daily. Branch clobetasoL 2021-1 Yes [id number] Apply to Univers 0.05 % 1-24 area(s) 2 ity of ointment 00:00: (two) [place] times Medical daily. Branch clobetasoL 2021-1 Yes [id number] Apply to Univers 0.05 % 1-24 area(s) 2 ity of ointment 00:00: (two) [place] 00 times Medical daily. Branch clobetasoL 2021-1 Yes [id number] Apply to Univers 0.05 % 1-24 area(s) 2 ity of ointment 00:00: (two) [place] 00 times Medical daily. Branch clobetasoL 2021-1 Yes [id number] Apply to Univers 0.05 % 1-24 area(s) 2 ity of ointment 00:00: (two) [place] 00 times Medical daily. Branch clobetasoL 2021-1 Yes [id number] Apply to Univers 0.05 % 1-24 area(s) 2 ity of ointment 00:00: (two) [place] 00 times Medical daily. Branch clobetasoL 2021-1 Yes [id number] Apply to Univers 0.05 % 1-24 area(s) 2 ity of ointment 00:00: (two) [place] times Medical daily. Branch clobetasoL 2021-1 Yes [id number] Apply to Univers 0.05 % 1-24 area(s) 2 ity of ointment 00:00: (two) [place] 00 times Medical daily. Branch clobetasoL 2021-1 Yes [id number] Apply to Univers 0.05 % 1-24 area(s) 2 ity of ointment 00:00: (two) [place] times Medical daily. Branch clobetasoL 2021-1 Yes [id number] Apply to Univers 0.05 % 1-24 area(s) 2 ity of ointment 00:00: (two) [place] 00 times Medical daily. Branch clobetasoL 2021-1 Yes [id number] Apply to Univers 0.05 % 1-24 area(s) 2 ity of ointment 00:00: (two) [place] 00 times Medical daily. Branch clobetasoL 2021-1 Yes [id number] Apply to Univers 0.05 % 1-24 area(s) 2 ity of ointment 00:00: (two) [place] 00 times Medical daily. Branch clobetasoL 2021-1 Yes [id number] Apply to Univers 0.05 % 1-24 area(s) 2 ity of ointment 00:00: (two) [place] 00 times Medical daily. Branch clobetasoL 2020- Yes [id number] Apply to Univers 0.05 % 1-24 area(s) 2 ity of ointment 00:00: (two) [place] 00 times Medical daily. Branch clobetasoL 2020-1 Yes [id number] Apply to Univers 0.05 % 1-24 area(s) 2 ity of ointment 00:00: (two) [place] times Medical daily. Branch Depo-Medrol 2020-0 No 80 mg, Sammy hilary 8-30 Route: IM, l 19:46: ONCE, Isabel 00 Dosing Weight 75, kg, Start date: 11/14/20 14:46:00 CDT, Stop date: 11/14/20 14:46:00 CDT Depo-Medrol 1-0 No 80 mg, Sammy hilary 8-30 Route: IM, l 19:46: ONCE, [place] 00 Dosing Weight 75, kg, Start date: 11/14/20 14:46:00 CDT, Stop date: 11/14/20 14:46:00 CDT Depo-Medrol 1-0 Yes 80 mg, IM, Memoria 8-30 ONCE, # 1 l 17:24: mL, 0 Isabel 00 Refill(s), given to patient Depo-Medrol 1-0 Yes 80 mg, IM, Memoria 8-30 ONCE, # 1 l 17:24: mL, 0 Miguel 00 Refill(s), given to patient Betamethaso 2020-0 Yes 1 appl, Mem oria ne 0.5 8-25 TOP, BID, l MG/ML 14:39: # 50 gm, 3 Bony n Topical 00 Refill(s), Cream Pharmacy: [facility] [id number], 162.56, cm, 11/09/20 9:20:00 CDT, Height, 75, kg, 11/09/20 9:20:00 CDT, Weight betamethaso 2020-0 Yes 1 appl, Mem oria ne 8-25 TOP, BID, l dipropionat 14:39: # 50 gm, 3 Isabel e topical 00 Refill(s), 0.05% cream Pharmacy: [facility] [id number], 162.56, cm, 11/09/20 9:20:00 CDT, Height, 75, kg, 11/09/20 9:20:00 CDT, Weight Betamethaso 2020-0 Yes 1 appl, Mem oria ne 0.5 8-25 TOP, BID, l MG/ML 14:39: # 50 gm, 3 Bony n Topical 00 Refill(s), Cream Pharmacy: [facility] [id number], 162.56, cm, 11/09/20 9:20:00 CDT, Height, 75, kg, 11/09/20 9:20:00 CDT, Weight betamethaso 2020-0 Yes 1 appl, Mem oria ne 8-25 TOP, BID, l dipropionat 14:39: # 50 gm, 3 Isabel e topical 00 Refill(s), 0.05% cream Pharmacy: [facility] [id number], 162.56, cm, 11/09/20 9:20:00 CDT, Height, 75, kg, 11/09/20 9:20:00 CDT, Weight gabapentin 2020-0 Yes 600 mg = 1 M emoria 600 MG Oral 8-25 tab, PO, l Tablet 14:38: BID, # 60 Bony n 00 tab, 5 Refill(s), Pharmacy: [facility] [id number], 162.56, cm, 11/09/20 9:20:00 CDT, Height, 75, kg, 11/09/20 9:20:00 CDT, Weight methocarbam 2020-0 Yes 500 mg = 1 Memoria ol 500 mg 8-25 tab, PO, l oral tablet 14:38: TID, # 90 H ermann 00 tab, 3 Refill(s), Pharmacy: [facility] [id number], 162.56, cm, 11/09/20 9:20:00 CDT, Height, 75, kg, 11/09/20 9:20:00 CDT, Weight gabapentin 2020-0 Yes 600 mg = 1 M emoria 600 MG Oral 8-25 tab, PO, l Tablet 14:38: BID, # 60 Bony n 00 tab, 5 Refill(s), Pharmacy: [facility] [id number], 162.56, cm, 11/09/20 9:20:00 CDT, Height, 75, kg, 11/09/20 9:20:00 CDT, Weight methocarbam 0 Yes 500 mg = 1 Memoria ol 500 mg 8-25 tab, PO, l oral tablet 14:38: TID, # 90 H ermann 00 tab, 3 Refill(s), Pharmacy: [facility] [id number], 162.56, cm, 11/09/20 9:20:00 CDT, Height, 75, kg, 11/09/20 9:20:00 CDT, Weight methocarbam 2020-0 No 500 mg = 1 Memoria ol 500 mg 8-25 tab, PO, l oral tablet 14:23: TID, 0 Herm tracee 00 Refill(s) methocarbam 2020-0 No 500 mg = 1 Memoria ol 500 mg 8-25 tab, PO, l oral tablet 14:23: TID, 0 Herm tracee 00 Refill(s) clobetasol Yes 1 appl, Sammy hilary topical 5-13 TOP, BID, l 0.05% cream 20:59: X 14 day, H ermann 00 # 30 gm, 0 Refill(s), Pharmacy: [place] [id number], 162.56, cm, 07/26/20 13:42:00 CDT, Height, 70.909, kg, 07/26/20 13:42:00 CDT, Weight clobetasol 2020-0 Yes 1 appl, Sammy hilary topical 5-13 TOP, BID, l 0.05% cream 20:59: X 14 day, H ermann 00 # 30 gm, 0 Refill(s), Pharmacy: [place] [id number], 162.56, cm, 07/26/20 13:42:00 CDT, Height, 70.909, kg, 07/26/20 13:42:00 CDT, Weight Permethrin Yes See Memoria 50 MG/ML 5-11 Instructio l Topical 19:04: ns, Isabel Cream 00 Massage [Elimite] into skin from head to soles of feet and wash after 10 hours. Do not apply to eyes, nose, mouth or genitalia. , # 60 gm, 0 Refill(s), Pharmacy: [facility] [id number], 162.56, cm, 07/26/20 13:42:00 CDT, Height, 70.909, kg, 07/16... Permethrin Yes See Memoria 50 MG/ML 5-11 Instructio l Topical 19:04: ns, [place] Cream 00 Massage [Elimite] into skin from head to soles of feet and wash after 10 hours. Do not apply to eyes, nose, mouth or genitalia. , # 60 gm, 0 Refill(s), Pharmacy: [facility] [id number], 162.56, cm, 07/26/20 13:42:00 CDT, Height, 70.909, kg, 07/16... Lidocaine Yes 1 appl, Memor ia Viscous 2% 4-27 TOP, QID, l mucous 22:56: PRN Mouth Bony n membrane 00 Pain, X 7 solution day, # 15 mL, 1 Refill(s), Pharmacy: [facility] 321, 162.56, cm, 07/12/20 8:37:00 CDT, Height, 69.659, kg, 07/12/20 8:37:00 CDT, Weight Lidocaine 2020-0 Yes 1 appl, Memor ia Viscous 2% 4-27 TOP, QID, l mucous 22:56: PRN Mouth Bony n membrane 00 Pain, X 7 solution day, # 15 mL, 1 Refill(s), Pharmacy: [facility] 321, 162.56, cm, 07/12/20 8:37:00 CDT, Height, 69.659, kg, 07/12/20 8:37:00 CDT, Weight valacyclovi 0 Yes 1 gm = 1 Me moria r 1000 MG 4-27 tab, PO, l Oral Tablet 13:45: Q8H, X 10 H ermann [Valtrex] 00 day, # 30 tab, 0 Refill(s), Pharmacy: [facility] 256, 162.56, cm, 07/12/20 8:37:00 CDT, Height, 69.659, kg, 07/12/20 8:37:00 CDT, Weight clindamycin 0 Yes 300 mg = 1 Memoria 300 mg oral 4-27 cap, PO, l capsule 13:45: Q8H, # 30 Christel nn 00 cap, 0 Refill(s), Pharmacy: [facility] Jasmeet, 162.56, cm, 07/12/20 8:37:00 CDT, Height, 69.659, kg, 07/12/20 8:37:00 CDT, Weight Lidocaine 2020-0 Yes 1 appl, Memor ia Viscous 2% 4-27 TOP, QID, l mucous 13:45: PRN Mouth Bony n membrane 00 Pain, X 7 solution day, # 15 mL, 1 Refill(s), [facility] Jasmeet, 162.56, cm, 07/12/20 8:37:00 CDT, Height, 69.659, kg, 07/12/20 8:37:00 CDT, Weight valacyclovi 0 Yes 1 gm = 1 Me moria r 1000 MG 4-27 tab, PO, l Oral Tablet 13:45: Q8H, X 10 H ermann [Valtrex] 00 day, # 30 tab, 0 Refill(s), Pharmacy: [facility] Jasmeet, 162.56, cm, 07/12/20 8:37:00 CDT, Height, 69.659, kg, 07/12/20 8:37:00 CDT, Weight clindamycin 0 Yes 300 mg = 1 Memoria 300 mg oral 4-27 cap, PO, l capsule 13:45: Q8H, # 30 Christel nn 00 cap, 0 Refill(s), Pharmacy: [facility] Jasmeet, 162.56, cm, 07/12/20 8:37:00 CDT, Height, 69.659, kg, 07/12/20 8:37:00 CDT, Weight Lidocaine 2020-0 Yes 1 appl, Memor ia Viscous 2% 4-27 TOP, QID, l mucous 13:45: PRN Mouth Bony n membrane 00 Pain, X 7 solution day, # 15 mL, 1 Refill(s), Pharmacy: [facility] 256, 162.56, cm, 07/12/20 8:37:00 CDT, Height, 69.659, kg, 07/12/20 8:37:00 CDT, Weight methocarbam 2020-0 Yes Univer s oL 500 mg 4-14 ity of tablet 00:00: [facility] methocarbam 2020-0 Yes Univer s oL 500 mg 4-14 ity of tablet 00:00: [facility] methocarbam 2020-0 Yes Univer s oL 500 mg 4-14 ity of tablet 00:00: [facility] methocarbam 2020-0 Yes Univer s oL 500 mg 4-14 ity of tablet 00:00: [facility] methocarbam 2020-0 Yes Univer s oL 500 mg 4-14 ity of tablet 00:00: [facility] methocarbam 2020-0 Yes Univer s oL 500 mg 4-14 ity of tablet 00:00: [facility] methocarbam 2020-0 Yes Univer s oL 500 mg 4-14 ity of tablet 00:00: [facility] methocarbam 2020-0 Yes Univer s oL 500 mg 4-14 ity of tablet 00:00: [facility] methocarbam 2020-0 Yes Univer s oL 500 mg 4-14 ity of tablet 00:00: [facility] methocarbam 2020-0 Yes Univer s oL 500 mg 4-14 ity of tablet 00:00: [facility] methocarbam 2020-0 Yes Univer s oL 500 mg 4-14 ity of tablet 00:00: [place] [facility] methocarbam 2020-0 Yes Univer s oL 500 mg 4-14 ity of tablet 00:00: [place] [facility] methocarbam 2020-0 Yes Univer s oL 500 mg 4-14 ity of tablet 00:00: [place] [facility] methocarbam 2020-0 Yes Univer s oL 500 mg 4-14 ity of tablet 00:00: [place] [facility] methocarbam 2020-0 Yes Univer s oL 500 mg 4-14 ity of tablet 00:00: [place] [facility] methocarbam 2020-0 Yes Univer s oL 500 mg 4-14 ity of tablet 00:00: [place] [facility] methocarbam 2020-0 Yes Univer s oL 500 mg 4-14 ity of tablet 00:00: [place] [facility] methocarbam 2020-0 Yes Univer s oL 500 mg 4-14 ity of tablet 00:00: Medical Branch methocarbam 2020-0 Yes Univer s oL 500 mg 4-14 ity of tablet 00:00: Medical Branch methocarbam 2020-0 Yes Univer s oL 500 mg 4-14 ity of tablet 00:00: Medical Branch methocarbam 2020-0 Yes Univer s oL 500 mg 4-14 ity of tablet 00:00: Medical Branch methocarbam 2020-0 Yes Univer s oL 500 mg 4-14 ity of tablet 00:00: [place] [facility] methocarbam 2020-0 Yes Univer s oL 500 mg 4-14 ity of tablet 00:00: [place] [facility] methocarbam 2020-0 Yes Univer s oL 500 mg 4-14 ity of tablet 00:00: [place] [facility] methocarbam 2020-0 Yes Univer s oL 500 mg 4-14 ity of tablet 00:00: [place] [facility] cyclobenzap 2020-0 Yes [id number] 10mg Take 1 Univers rine 10 mg 2-26 tablet by ity of tablet 00:00: mouth 3 [place] ([facility]) Medical times Branch daily. cyclobenzap 2020-0 Yes [id number] 10mg Take 1 Univers rine 10 mg 2-26 tablet by ity of tablet 00:00: mouth 3 [place] ([facility]) Medical times Branch daily. cyclobenzap 2020-0 Yes [id number] 10mg Take 1 Univers rine 10 mg 2-26 tablet by ity of tablet 00:00: mouth 3 [place] ([facility]) Medical times Branch daily. cyclobenzap 2020-0 Yes [id number] 10mg Take 1 Univers rine 10 mg 2-26 tablet by ity of tablet 00:00: mouth 3 [place] ([facility]) Medical times Branch daily. cyclobenzap 2020-0 Yes [id number] 10mg Take 1 Univers rine 10 mg 2-26 tablet by ity of tablet 00:00: mouth 3 [place] ([facility]) Medical times Branch daily. cyclobenzap 2020-0 Yes [id number] 10mg Take 1 Univers rine 10 mg 2-26 tablet by ity of tablet 00:00: mouth 3 [place] ([facility]) Medical times Branch daily. cyclobenzap 2020-0 Yes [id number] 10mg Take 1 Univers rine 10 mg 2-26 tablet by ity of tablet 00:00: mouth (three) Medical times Branch daily. cyclobenzap 2021-0 Yes [id number] 10mg Take 1 Univers rine 10 mg 2-26 tablet by ity of tablet 00:00: mouth (three) Medical times Branch daily. cyclobenzap 2021-0 Yes [id number] 10mg Take 1 Univers rine 10 mg 2-26 tablet by ity of tablet 00:00: mouth (three) Medical times Branch daily. cyclobenzap 2021-0 Yes [id number] 10mg Take 1 Univers rine 10 mg 2-26 tablet by ity of tablet 00:00: mouth (three) Medical times Branch daily. cyclobenzap 2021-0 Yes [id number] 10mg Take 1 Univers rine 10 mg 2-26 tablet by ity of tablet 00:00: mouth (three) Medical times Branch daily. cyclobenzap 2021-0 Yes [id number] 10mg Take 1 Univers rine 10 mg 2-26 tablet by ity of tablet 00:00: mouth (three) Medical times Branch daily. cyclobenzap 2021-0 Yes [id number] 10mg Take 1 Univers rine 10 mg 2-26 tablet by ity of tablet 00:00: mouth (three) Medical times Branch daily. cyclobenzap 2021-0 Yes [id number] 10mg Take 1 Univers rine 10 mg 2-26 tablet by ity of tablet 00:00: mouth (three) Medical times Branch daily. cyclobenzap 2021-0 Yes [id number] 10mg Take 1 Univers rine 10 mg 2-26 tablet by ity of tablet 00:00: mouth (three) Medical times Branch daily. cyclobenzap 2021-0 Yes [id number] 10mg Take 1 Univers rine 10 mg 2-26 tablet by ity of tablet 00:00: mouth (three) Medical times Branch daily. cyclobenzap 2021-0 Yes [id number] 10mg Take 1 Univers rine 10 mg 2-26 tablet by ity of tablet 00:00: mouth (three) Medical times Branch daily. cyclobenzap 2021-0 Yes [id number] 10mg Take 1 Univers rine 10 mg 2-26 tablet by ity of tablet 00:00: mouth 3 [place] (three) Medical times Branch daily. cyclobenzap 2021-0 Yes [id number] 10mg Take 1 Univers rine 10 mg 2-26 tablet by ity of tablet 00:00: mouth 3 [place] (three) Medical times Branch daily. cyclobenzap 2021-0 Yes [id number] 10mg Take 1 Univers rine 10 mg 2-26 tablet by ity of tablet 00:00: mouth 3 [place] (three) Medical times Branch daily. cyclobenzap 2021-0 Yes [id number] 10mg Take 1 Univers rine 10 mg 2-26 tablet by ity of tablet 00:00: mouth 3 [place] ([facility]) Medical times Branch daily. cyclobenzap 2021-0 Yes [id number] 10mg Take 1 Univers rine 10 mg 2-26 tablet by ity of tablet 00:00: mouth 3 [place] ([facility]) Medical times Branch daily. cyclobenzap 1-0 Yes [id number] 10mg Take 1 Univers rine 10 mg 2-26 tablet by ity of tablet 00:00: mouth 3 [place] ([facility]) Medical times Branch daily. cyclobenzap 2021-0 Yes [id number] 10mg Take 1 Univers rine 10 mg 2-26 tablet by ity of tablet 00:00: mouth 3 [place] ([facility]) Medical times Branch daily. cyclobenzap 1-0 Yes [id number] 10mg Take 1 Univers rine 10 mg 2-26 tablet by ity of tablet 00:00: mouth 3 [place] ([facility]) Medical times Branch daily. dicyclomine 2020-1 Yes 10mg Take 10 mg Univers 10 mg 0-27 by mouth ity of capsule 00:00: daily. [place] [facility] dicyclomine 2020-1 Yes 10mg Take 10 mg Univers 10 mg 0-27 by mouth ity of capsule 00:00: daily. [place] [facility] dicyclomine 2020-1 Yes 10mg Take 10 mg Univers 10 mg 0-27 by mouth ity of capsule 00:00: daily. [place] [facility] dicyclomine 2020-1 Yes 10mg Take 10 mg Univers 10 mg 0-27 by mouth ity of capsule 00:00: daily. [place] [facility] dicyclomine 2020-1 Yes 10mg Take 10 mg Univers 10 mg 0-27 by mouth ity of capsule 00:00: daily. Medical Branch dicyclomine 2019- Yes 10mg Take 10 mg Univers 10 mg 0-27 by mouth ity of capsule 00:00: daily. Medical Branch dicyclomine 2019- Yes 10mg Take 10 mg Univers 10 mg 0-27 by mouth ity of capsule 00:00: daily. Medical Branch dicyclomine 2019- Yes 10mg Take 10 mg Univers 10 mg 0-27 by mouth ity of capsule 00:00: daily. Medical Branch dicyclomine 2019- Yes 10mg Take 10 mg Univers 10 mg 0-27 by mouth ity of capsule 00:00: daily. Medical Branch dicyclomine 2019- Yes 10mg Take 10 mg Univers 10 mg 0-27 by mouth ity of capsule 00:00: daily. Medical Branch dicyclomine 2019- Yes 10mg Take 10 mg Univers 10 mg 0-27 by mouth ity of capsule 00:00: daily. Medical Branch dicyclomine 2019- Yes 10mg Take 10 mg Univers 10 mg 0-27 by mouth ity of capsule 00:00: daily. Medical Branch dicyclomine 2019- Yes 10mg Take 10 mg Univers 10 mg 0-27 by mouth ity of capsule 00:00: daily. Medical Branch dicyclomine 2019- Yes 10mg Take 10 mg Univers 10 mg 0-27 by mouth ity of capsule 00:00: daily. Medical Branch dicyclomine 2019- Yes 10mg Take 10 mg Univers 10 mg 0-27 by mouth ity of capsule 00:00: daily. Medical Branch dicyclomine 2019- Yes 10mg Take 10 mg Univers 10 mg 0-27 by mouth ity of capsule 00:00: daily. Medical Branch dicyclomine 2019- Yes 10mg Take 10 mg Univers 10 mg 0-27 by mouth ity of capsule 00:00: daily. Medical Branch dicyclomine 2019- Yes 10mg Take 10 mg Univers 10 mg 0-27 by mouth ity of capsule 00:00: daily. Medical Branch dicyclomine 2019- Yes 10mg Take 10 mg Univers 10 mg 0-27 by mouth ity of capsule 00:00: daily. [place] [facility] dicyclomine 2019-03 Yes 10mg Take 10 mg Univers 10 mg 0-27 by mouth ity of capsule 00:00: daily. [facility] dicyclomine 2019-03 Yes 10mg Take 10 mg Univers 10 mg 0-27 by mouth ity of capsule 00:00: daily. [place] [facility] dicyclomine 2019-03 Yes 10mg Take 10 mg Univers 10 mg 0-27 by mouth ity of capsule 00:00: daily. [place] [facility] dicyclomine 2019-03 Yes 10mg Take 10 mg Univers 10 mg 0-27 by mouth ity of capsule 00:00: daily. [place] [facility] dicyclomine 2019-03 Yes 10mg Take 10 mg Univers 10 mg 0-27 by mouth ity of capsule 00:00: daily. [place] [facility] dicyclomine 2019-03 Yes 10mg Take 10 mg Univers 10 mg 0-27 by mouth ity of capsule 00:00: daily. [place] [facility] Fluticasone 2019-03 Yes 2 spray, Me moria propionate 0-01 NASAL, l 0.05 18:50: Daily, in Isabel MG/ACTUAT 00 each Metered nostril, # Dose Nasal 16 gm, 11 [place] Refill(s), [Flonase] Pharmacy: [facility] 321, 162.56, cm, 12/16/19 8:50:00 CDT, Height, 72.784, kg, 12/16/19 8:50:00 CDT, Weight Fluticasone 2019-03 Yes 2 spray, Me moria propionate 0-01 NASAL, l 0.05 18:50: Daily, in Miguel MG/ACTUAT 00 each Metered nostril, # Dose Nasal 16 gm, 11 [place] Refill(s), [Flonase] Pharmacy: [facility] 321, 162.56, cm, 12/16/19 8:50:00 CDT, Height, 72.784, kg, 12/16/19 8:50:00 CDT, Weight WheelChair Yes 1 ea, Milind solitario 9-30 MISC, l 14:07: ONCALL, 1 Isabel 00 folding wheelchair . Dx chronic low back pain., # 1 ea, 0 Refill(s) WheelChair 2020-0 Yes 1 ea, Memori a 9-30 MISC, l 14:07: ONCALL, 1 Miguel 00 folding wheelchair . Dx chronic low back pain., # 1 ea, 0 Refill(s) beclomethas 2020-0 Yes 1 spray, Me moria one 0.042 9-30 NASAL, l mg/inh 14:05: BID, # 25 Bony n nasal spray 00 gm, 5 Refill(s), Pharmacy: [facility] 321, 162.56, cm, 12/16/19 8:50:00 CDT, Height, 72.784, kg, 12/16/19 8:50:00 CDT, Weight beclomethas 2020-0 Yes 1 spray, Me moria one 0.042 9-30 NASAL, l mg/inh 14:05: BID, # 25 Bony n nasal spray 00 gm, 5 Refill(s), Pharmacy: [facility] 321, 162.56, cm, 12/16/19 8:50:00 CDT, Height, 72.784, kg, 12/16/19 8:50:00 CDT, Weight gabapentin 2020-0 Yes 600mg Take 600 Un albert 600 mg 9-11 mg by ity of tablet 00:00: mouth (two) Medical times Branch daily. gabapentin 2020-0 Yes 600mg Take 600 Un albert 600 mg 9-11 mg by ity of tablet 00:00: mouth (two) Medical times Branch daily. gabapentin 2020-0 Yes 600mg Take 600 Un albert 600 mg 9-11 mg by ity of tablet 00:00: mouth (two) Medical times Branch daily. gabapentin 2020-0 Yes 600mg Take 600 Un albert 600 mg 9-11 mg by ity of tablet 00:00: mouth (two) Medical times Branch daily. gabapentin 2020-0 Yes 600mg Take 600 Un albert 600 mg 9-11 mg by ity of tablet 00:00: mouth (two) Medical times Branch daily. gabapentin 2020-0 Yes 600mg Take 600 Un albert 600 mg 9-11 mg by ity of tablet 00:00: mouth (two) Medical times Branch daily. gabapentin 2020-0 Yes 600mg Take 600 Un albert 600 mg 9-11 mg by ity of tablet 00:00: mouth (two) Medical times Branch daily. gabapentin 2020-0 Yes 600mg Take 600 Un albert 600 mg 9-11 mg by ity of tablet 00:00: mouth (two) Medical times Branch daily. gabapentin 2020-0 Yes 600mg Take 600 Un albert 600 mg 9-11 mg by ity of tablet 00:00: mouth (two) Medical times Branch daily. gabapentin 2020-0 Yes 600mg Take 600 Un albert 600 mg 9-11 mg by ity of tablet 00:00: mouth (two) Medical times Branch daily. gabapentin 2020-0 Yes 600mg Take 600 Un albert 600 mg 9-11 mg by ity of tablet 00:00: mouth (two) Medical times Branch daily. gabapentin 2020-0 Yes 600mg Take 600 Un albert 600 mg 9-11 mg by ity of tablet 00:00: mouth (two) Medical times Branch daily. gabapentin 2020-0 Yes 600mg Take 600 Un albert 600 mg 9-11 mg by ity of tablet 00:00: mouth (two) Medical times Branch daily. gabapentin 2020-0 Yes 600mg Take 600 Un albert 600 mg 9-11 mg by ity of tablet 00:00: mouth (two) Medical times Branch daily. gabapentin 2020-0 Yes 600mg Take 600 Un albert 600 mg 9-11 mg by ity of tablet 00:00: mouth (two) Medical times Branch daily. gabapentin 2020-0 Yes 600mg Take 600 Un albert 600 mg 9-11 mg by ity of tablet 00:00: mouth (two) Medical times Branch daily. gabapentin 2020-0 Yes 600mg Take 600 Un albert 600 mg 9-11 mg by ity of tablet 00:00: mouth (two) Medical times Branch daily. gabapentin 2020-0 Yes 600mg Take 600 Un albert 600 mg 9-11 mg by ity of tablet 00:00: mouth (two) Medical times Branch daily. gabapentin 2020-0 Yes 600mg Take 600 Un albert 600 mg 9-11 mg by ity of tablet 00:00: mouth (two) Medical times Branch daily. gabapentin 2020-0 Yes 600mg Take 600 Un albert 600 mg 9-11 mg by ity of tablet 00:00: mouth 2 [place] (two) Medical times Branch daily. gabapentin 2020-0 Yes 600mg Take 600 Un albert 600 mg 9-11 mg by ity of tablet 00:00: mouth 2 [place] (two) Medical times Branch daily. gabapentin 2020-0 Yes 600mg Take 600 Un albert 600 mg 9-11 mg by ity of tablet 00:00: mouth 2 [place] (two) Medical times Branch daily. gabapentin 2020-0 Yes 600mg Take 600 Un albert 600 mg 9-11 mg by ity of tablet 00:00: mouth 2 [place] (two) Medical times Branch daily. gabapentin 2020-0 Yes 600mg Take 600 Un albert 600 mg 9-11 mg by ity of tablet 00:00: mouth 2 [place] (two) Medical times Branch daily. gabapentin 2020-0 Yes 600mg Take 600 Un albert 600 mg 9-11 mg by ity of tablet 00:00: mouth 2 [place] (two) Medical times Branch daily. RABEprazole 2020-0 Yes 20mg Take 20 mg Univers 20 mg 8-11 by mouth ity of tablet 00:00: daily. [place] [facility] RABEprazole 2020-0 Yes 20mg Take 20 mg Univers 20 mg 8-11 by mouth ity of tablet 00:00: daily. [place] [facility] RABEprazole 2020-0 Yes 20mg Take 20 mg Univers 20 mg 8-11 by mouth ity of tablet 00:00: daily. [place] [facility] RABEprazole 2020-0 Yes 20mg Take 20 mg Univers 20 mg 8-11 by mouth ity of tablet 00:00: daily. [place] [facility] RABEprazole 2020-0 Yes 20mg Take 20 mg Univers 20 mg 8-11 by mouth ity of tablet 00:00: daily. [address] Branch RABEprazole 2020-0 Yes 20mg Take 20 mg Univers 20 mg 8-11 by mouth ity of tablet 00:00: daily. [address] Branch RABEprazole 2020-0 Yes 20mg Take 20 mg Univers 20 mg 8-11 by mouth ity of tablet 00:00: daily. [address] Branch RABEprazole 2020-0 Yes 20mg Take 20 mg Univers 20 mg 8-11 by mouth ity of tablet 00:00: daily. [place] [facility] RABEprazole 2020-0 Yes 20mg Take 20 mg Univers 20 mg 8-11 by mouth ity of tablet 00:00: daily. [place] [facility] RABEprazole 2020-0 Yes 20mg Take 20 mg Univers 20 mg 8-11 by mouth ity of tablet 00:00: daily. [place] [facility] RABEprazole 2020-0 Yes 20mg Take 20 mg Univers 20 mg 8-11 by mouth ity of tablet 00:00: daily. [place] [facility] RABEprazole 2020-0 Yes 20mg Take 20 mg Univers 20 mg 8-11 by mouth ity of tablet 00:00: daily. [place] [facility] RABEprazole 2020-0 Yes 20mg Take 20 mg Univers 20 mg 8-11 by mouth ity of tablet 00:00: daily. [place] [facility] RABEprazole 2020-0 Yes 20mg Take 20 mg Univers 20 mg 8-11 by mouth ity of tablet 00:00: daily. [place] [facility] RABEprazole 2020-0 Yes 20mg Take 20 mg Univers 20 mg 8-11 by mouth ity of tablet 00:00: daily. [place] [facility] RABEprazole 2020-0 Yes 20mg Take 20 mg Univers 20 mg 8-11 by mouth ity of tablet 00:00: daily. [place] [facility] RABEprazole 2020-0 Yes 20mg Take 20 mg Univers 20 mg 8-11 by mouth ity of tablet 00:00: daily. [place] [facility] RABEprazole 2020-0 Yes 20mg Take 20 mg Univers 20 mg 8-11 by mouth ity of tablet 00:00: daily. [place] [facility] RABEprazole 2020-0 Yes 20mg Take 20 mg Univers 20 mg 8-11 by mouth ity of tablet 00:00: daily. [place] [facility] RABEprazole 2020-0 Yes 20mg Take 20 mg Univers 20 mg 8-11 by mouth ity of tablet 00:00: daily. [place] [facility] RABEprazole 2020-0 Yes 20mg Take 20 mg Univers 20 mg 8-11 by mouth ity of tablet 00:00: daily. [place] [facility] RABEprazole 2020-0 Yes 20mg Take 20 mg Univers 20 mg 8-11 by mouth ity of tablet 00:00: daily. [address] RABEprazole 2020-0 Yes 20mg Take 20 mg Univers 20 mg 8-11 by mouth ity of tablet 00:00: daily. [address] RABEprazole 2020-0 Yes 20mg Take 20 mg Univers 20 mg 8-11 by mouth ity of tablet 00:00: daily. [address] RABEprazole 2020-0 Yes 20mg Take 20 mg Univers 20 mg 8-11 by mouth ity of tablet 00:00: daily. [address] Depo-Medrol 2020-0 No 80 mg, Sammy hilary 5-18 Route: IM, l 19:41: Drug form: Isabel 00 SUSP, ONCE, Dosing Weight 71, kg, Start date: 08/03/19 14:41:00 CDT, Stop date: 08/03/19 14:41:00 CDT Depo-Medrol 2020-0 No 80 mg, Sammy hilary 5-18 Route: IM, l 19:41: Drug form: Isabel 00 SUSP, ONCE, Dosing Weight 71, kg, Start date: 08/03/19 14:41:00 CDT, Stop date: 08/03/19 14:41:00 CDT dicyclomine 2020-0 Yes 10 mg = 1 M emoria 10 mg oral 4-30 cap, PO, l capsule 15:01: QID-Before Herm tracee 00 Meals, PRN Abdominal Pain, # 120 cap, 0 Refill(s) gabapentin 2020-0 Yes 600 mg = 1 M emoria 600 MG Oral 4-30 tab, PO, l Tablet 15:01: BID, # 60 Bony n 00 tab, 0 Refill(s) methocarbam 2020-0 Yes 1,000 mg = Memoria ol 500 mg 4-30 2 tab, PO, l oral tablet 15:01: TID, 0 Herm tracee 00 Refill(s) RABEprazole 2020-0 Yes 20 mg = 1 M emoria 20 mg oral 4-30 tab, PO, l enteric 15:01: Daily, # Bony n coated 00 30 tab, 1 tablet Refill(s) dicyclomine 2020-0 Yes 10 mg = 1 M emoria 10 mg oral 4-30 cap, PO, l capsule 15:01: QID-Before Herm tracee 00 Meals, PRN Abdominal Pain, # 120 cap, 0 Refill(s) gabapentin 2020-0 Yes 600 mg = 1 M emoria 600 MG Oral 4-30 tab, PO, l Tablet 15:01: BID, # 60 Bony n 00 tab, 0 Refill(s) methocarbam 2020-0 Yes 1,000 mg = Memoria ol 500 mg 4-30 2 tab, PO, l oral tablet 15:01: TID, 0 Herm tracee 00 Refill(s) RABEprazole 2020-0 Yes 20 mg = 1 M emoria 20 mg oral 4-30 tab, PO, l enteric 15:01: Daily, # Bony n coated 00 30 tab, 1 tablet Refill(s) Gabapentin Gabapentin 2020-0 Yes HIMA MEADOWS Take one UT 600 MG Oral 600 MG Oral 4-28 M.D. tablet in Physici Tablet Tablet 00:00: the ans 00 morning and one tablet in the evening ciprofloxac 2020-0 Yes 250 mg = 1 Memoria in 250 mg 4-16 tab, PO, l oral tablet 18:14: Q12H, for H ermann 00 UTI, X 3 day, # 6 tab, 0 Refill(s), Pharmacy: [place] [id number] ciprofloxac 2020-0 Yes 250 mg = 1 Memoria in 250 mg 4-16 tab, PO, l oral tablet 18:14: Q12H, for H ermann 00 UTI, X 3 day, # 6 tab, 0 Refill(s), Pharmacy: [place] [id number] 0.3 ML 2020-0 Yes 0.3 mg, Memoria Epinephrine 4-08 IM, ONCE, l 1 MG/ML 13:18: Use for Isabel Prefilled 00 severe Syringe allergic [Epipen] reaction or swelling of lips, tongue, throat. To ER if used., # 1 kit, 0 Refill(s), Pharmacy: [place] [id number] EpiPen 2020-0 Yes 0.3 mg, Memoria Auto-Inject 4-08 IM, ONCE, l or 0.3 mg 13:18: Use for Christel nn injectable 00 severe kit allergic reaction or swelling of lips, tongue, throat. To ER if used., # 1 kit, 0 Refill(s), Pharmacy: [place] [id number] 0.3 ML 2020-0 Yes 0.3 mg, Memoria Epinephrine 4-08 IM, ONCE, l 1 MG/ML 13:18: Use for Miguel Prefilled 00 severe Syringe allergic [Epipen] reaction or swelling of lips, tongue, throat. To ER if used., # 1 kit, 0 Refill(s), Pharmacy: [place] [id number] EpiPen 2020-0 Yes 0.3 mg, Memoria Auto-Inject 4-08 IM, ONCE, l or 0.3 mg 13:18: Use for Christel nn injectable 00 severe kit allergic reaction or swelling of lips, tongue, throat. To ER if used., # 1 kit, 0 Refill(s), Pharmacy: [place] [id number] { Yes See Memoria (Methylpred 4-06 Instructio l nisolone 4 16:00: ns, PO, Herm tracee MG Oral 00 Take by Tablet mouth as [Medrol]) } directed Pack on label., [Medrol X 6 day, # Dosepak] 1 ea, 0 Refill(s), Pharmacy: [place] [id number] 0.3 ML 2020-0 Yes 0.3 mg, Memoria Epinephrine 4-06 IM, ONCE, l 1 MG/ML 16:00: PRN severe Herm tracee Prefilled 00 allergic Syringe or [Auvi-Q] naphylacti c reaction. Call 911 if used., # 1 kit, 1 Refill(s), Pharmacy: [place] [id number] { Yes See Memoria (Methylpred 4-06 Instructio l nisolone 4 16:00: ns, PO, Herm tracee MG Oral 00 Take by Tablet mouth as [Medrol]) } directed Pack on label., [Medrol X 6 day, # Dosepak] 1 ea, 0 Refill(s), Pharmacy: [place] [id number] 0.3 ML 2020-0 Yes 0.3 mg, Memoria Epinephrine 4-06 IM, ONCE, l 1 MG/ML 16:00: PRN severe Herm tracee Prefilled 00 allergic Syringe or [Auvi-Q] naphylacti c reaction. Call 911 if used., # 1 kit, 1 Refill(s), Pharmacy: [place] [id number] Methocarbam Methocarbam 2018-03 Yes HIMA ABDIEL Q0.3333D TAKE 1 UT ol 500 MG ol 500 MG 2-09 M.D. TABLET 3 P hysici Oral Tablet Oral Tablet 00:00: TIMES ans 00 DAILY as needed ciclopirox 2018-03 Yes 1 appl, Sammy hilary 80 MG/ML 04-13 TOP, l Topical 14:47: Daily, X Bony n Solution 00 48 week, # [Penlac 3.3 ml, 11 [place] Refill(s), Lacquer] Pharmacy: [place] [id number] ciclopirox 2018-03 Yes 1 appl, Sammy hilary 80 MG/ML 04-13 TOP, l Topical 14:47: Daily, X Bony n Solution 00 48 week, # [Penlac 3.3 ml, 11 [place] Refill(s), Lacquer] Pharmacy: [place] [id number] baclofen 10 Yes ONE-HALF Me moria mg oral 9-03 TO ONE l tablet 14:03: TABLET, Isabel 32 PO, BID, PRN NEEDED FOR MUSCLE PAIN OR SPASMS, # 30 tab, Pharmacy: [place] [id number] baclofen 10 Yes ONE-HALF Me moria mg oral 9-03 TO ONE l tablet 14:03: TABLET, Miguel 32 PO, BID, PRN NEEDED FOR MUSCLE PAIN OR SPASMS, # 30 tab, Pharmacy: [place] [address] Cyclobenzap Yes See Memori a rine 10-24 Instructio l hydrochlori 17:43: ns, 1 tab H ermann de 5 MG 00 PO BID prn Oral Tablet muscle [Flexeril] pain or spasm. May cause drowsiness ., # 30 tab, 0 Refill(s), Pharmacy: [place] [address] Cyclobenzap Yes See Memori a rine 10-24 Instructio l hydrochlori 17:43: ns, 1 tab H ermann de 5 MG 00 PO BID prn Oral Tablet muscle [Flexeril] pain or spasm. May cause drowsiness ., # 30 tab, 0 Refill(s), Pharmacy: [place] [address] gabapentin Yes See Memoria 300 MG Oral 10-16 Instructio l Capsule 00:44: ns, 1 tab Christel nn [Neurontin] 00 PO HS x 3 days, then 1 tab PO BID x 3 days, then 1 tab PO TID, # 90 caplet, 1 Refill(s), Pharmacy: [place] [address] diclofenac Yes 50 mg = 1 Me moria sodium 50 8-01 tab, PO, l mg oral 00:44: BID, PRN Bony n enteric 00 Pain, Take coated, with food; delayed-rel do not ease tablet take with other NSAIDs, # 90 tab, 1 Refill(s), Pharmacy: [place] [address] Rabeprazole Yes 20 mg = 1 M emoria sodium 20 8-01 tab, PO, l MG Enteric 00:44: Daily, # Her wu Coated 00 90 cap, 3 Tablet Refill(s), [Aciphex] Pharmacy: [place] [address] gabapentin Yes See Memoria 300 MG Oral 8 Instructio l Capsule 00:44: ns, 1 tab Christel nn [Neurontin] 00 PO HS x 3 days, then 1 tab PO BID x 3 days, then 1 tab PO TID, # 90 caplet, 1 Refill(s), Pharmacy: [place] [address] diclofenac Yes 50 mg = 1 Me moria sodium 50 8-01 tab, PO, l mg oral 00:44: BID, PRN Bony n enteric 00 Pain, Take coated, with food; delayed-rel do not ease tablet take with other NSAIDs, # 90 tab, 1 Refill(s), Pharmacy: [place] [address] Rabeprazole Yes 20 mg = 1 M emoria sodium 20 8- tab, PO, l MG Enteric 00:44: Daily, # Her wu Coated 00 90 cap, 3 Tablet Refill(s), [Aciphex] Pharmacy: [place] [address] Rabeprazole Yes 20 mg = 1 M emoria sodium 20 7-31 tab, PO, l MG Enteric 22:58: Daily, # Her wu Coated 00 90 cap, 3 Tablet Refill(s), [Aciphex] Pharmacy: [place] [address] gabapentin Yes See Memoria 300 MG Oral 7- Instructio l Capsule 22:58: ns, 1 tab Christel nn [Neurontin] 00 PO HS x 3 days, then 1 tab PO BID x 3 days, then 1 tab PO TID, # 90 caplet, 1 Refill(s), Pharmacy: [place] [address] diclofenac Yes 50 mg = 1 Me moria sodium 50 7-31 tab, PO, l mg oral 22:58: BID, PRN Bony n enteric 00 Pain, Take coated, with food; delayed-rel do not ease tablet take with other NSAIDs, # 90 tab, 1 Refill(s), Pharmacy: [place] [address] Rabeprazole Yes 20 mg = 1 M emoria sodium 20 7-31 tab, PO, l MG Enteric 22:58: Daily, # Her wu Coated 00 90 cap, 3 Tablet Refill(s), [Aciphex] Pharmacy: [place] [address] gabapentin Yes See Memoria 300 MG Oral 7-31 Instructio l Capsule 22:58: ns, 1 tab Christel nn [Neurontin] 00 PO HS x 3 days, then 1 tab PO BID x 3 days, then 1 tab PO TID, # 90 caplet, 1 Refill(s), Pharmacy: [place] [address] diclofenac Yes 50 mg = 1 Me moria sodium 50 7-31 tab, PO, l mg oral 22:58: BID, PRN Bony n enteric 00 Pain, Take coated, with food; delayed-rel do not ease tablet take with other NSAIDs, # 90 tab, 1 Refill(s), Pharmacy: [place] [address] gabapentin No See Memoria 300 MG Oral 7-31 Instructio l Capsule 14:36: ns, 1 tab Christel nn [Neurontin] 47 PO HS x 3 days, then 1 tab PO BID x 3 days, then 1 tab PO TID, # 90 caplet, 1 Refill(s), Pharmacy: [place] [address] gabapentin No See Memoria 300 MG Oral 7-31 Instructio l Capsule 14:36: ns, 1 tab Christel nn [Neurontin] 47 PO HS x 3 days, then 1 tab PO BID x 3 days, then 1 tab PO TID, # 90 caplet, 1 Refill(s), Pharmacy: [place] [address] diclofenac No 50 mg = 1 Me moria sodium 50 7-31 tab, PO, l mg oral 14:32: BID, PRN Bony n enteric 27 Pain, Take coated, with food; delayed-rel do not ease tablet take with other NSAIDs, # 90 tab, 1 Refill(s), Pharmacy: [place] [address] diclofenac No 50 mg = 1 Me moria sodium 50 7-31 tab, PO, l mg oral 14:32: BID, PRN Bony n enteric 27 Pain, Take coated, with food; delayed-rel do not ease tablet take with other NSAIDs, # 90 tab, 1 Refill(s), Pharmacy: [place] [address] Rabeprazole No 20 mg = 1 M emoria sodium 20 7-31 tab, PO, l MG Enteric 14:32: Daily, # wu Coated 25 90 cap, 3 Tablet Refill(s), [Aciphex] Pharmacy: [place] [address] Rabeprazole No 20 mg = 1 M emoria sodium 20 7-31 tab, PO, l MG Enteric 14:32: Daily, # wu Coated 25 90 cap, 3 Tablet Refill(s), [Aciphex] Pharmacy: [place] [address] { Yes See Memoria (Methylpred 7-09 Instructio l nisolone 4 14:21: ns, PO, Herm tracee MG Oral 31 Take by Tablet mouth as [Medrol]) } directed Pack on label., [Medrol # 1 Pack, Dosepak] 0 Refill(s), Pharmacy: [place] [address] { Yes See Memoria (Methylpred 7-09 Instructio l nisolone 4 14:21: ns, PO, Herm tracee MG Oral 31 Take by Tablet mouth as [Medrol]) } directed Pack on label., [Medrol # 1 Pack, Dosepak] 0 Refill(s), Pharmacy: [place] [address] diclofenac Yes 50 mg = 1 Me moria sodium 50 7-09 tab, PO, l mg oral 14:21: BID, PRN Bony n enteric 27 Pain, Take coated, with food; delayed-rel do not ease tablet take with other NSAIDs, # 30 tab, 0 Refill(s), Pharmacy: [place] [address] diclofenac Yes 50 mg = 1 Me moria sodium 50 7-09 tab, PO, l mg oral 14:21: BID, PRN Bony n enteric 27 Pain, Take coated, with food; delayed-rel do not ease tablet take with other NSAIDs, # 30 tab, 0 Refill(s), Pharmacy: [place] [address] diclofenac 2019-0 No 50 mg = 1 Me moria sodium 50 7-09 tab, PO, l mg oral 14:18: BID, PRN Bony n enteric 00 Pain, Take coated, with food; delayed-rel do not ease tablet take with other NSAIDs, # 30 tab, 0 Refill(s), Pharmacy: [place] [address] { No See Memoria (Methylpred 7-09 Instructio l nisolone 4 14:18: ns, PO, Herm tracee MG Oral 00 Take by Tablet mouth as [Medrol]) } directed Pack on label., [Medrol # 1 Pack, Dosepak] 0 Refill(s), Pharmacy: [place] [address] diclofenac 2018-0 No 50 mg = 1 Me moria sodium 50 7-09 tab, PO, l mg oral 14:18: BID, PRN Bony n enteric 00 Pain, Take coated, with food; delayed-rel do not ease tablet take with other NSAIDs, # 30 tab, 0 Refill(s), Pharmacy: [place] [address] { No See Memoria (Methylpred 7-09 Instructio l nisolone 4 14:18: ns, PO, Herm tracee MG Oral 00 Take by Tablet mouth as [Medrol]) } directed Pack on label., [Medrol # 1 Pack, Dosepak] 0 Refill(s), Pharmacy: [place] [address] diclofenac 2019-0 Yes 50mg 50 mg 2 Univ ers 50 mg EC 09-23 (two) ity of tablet 00:00: times [place] 00 daily with Medical meals. Branch diclofenac 2019-0 Yes 50mg 50 mg 2 Univ ers 50 mg EC 09-23 (two) ity of tablet 00:00: times [place] 00 daily with Medical meals. [facility] diclofenac 2019-0 Yes 50mg 50 mg 2 Univ ers 50 mg EC 09-23 (two) ity of tablet 00:00: times [place] 00 daily with Medical meals. [facility] diclofenac 2019-0 Yes 50mg 50 mg 2 Univ ers 50 mg EC 09-23 (two) ity of tablet 00:00: times [place] 00 daily with Medical meals. [facility] diclofenac 2019-0 Yes 50mg 50 mg 2 Univ ers 50 mg EC 09-23 (two) ity of tablet 00:00: times [place] 00 daily with Medical meals. Branch diclofenac 2019-0 Yes 50mg 50 mg 2 Univ ers 50 mg EC 09-23 (two) ity of tablet 00:00: times [place] 00 daily with Medical meals. [facility] diclofenac 2019-0 Yes 50mg 50 mg 2 Univ ers 50 mg EC 09-23 (two) ity of tablet 00:00: times [place] 00 daily with Medical meals. Branch diclofenac 2019-0 Yes 50mg 50 mg 2 Univ ers 50 mg EC 09-23 (two) ity of tablet 00:00: times [place] 00 daily with Medical meals. [facility] diclofenac 2019-0 Yes 50mg 50 mg 2 Univ ers 50 mg EC 09-23 (two) ity of tablet 00:00: times [place] 00 daily with Medical meals. Branch diclofenac 2019-0 Yes 50mg 50 mg 2 Univ ers 50 mg EC 09-23 (two) ity of tablet 00:00: times [place] 00 daily with Medical meals. Branch diclofenac 2019-0 Yes 50mg 50 mg 2 Univ ers 50 mg EC 09-23 (two) ity of tablet 00:00: times [place] 00 daily with Medical meals. [facility] diclofenac 2019-0 Yes 50mg 50 mg 2 Univ ers 50 mg EC 09-23 (two) ity of tablet 00:00: times [place] 00 daily with Medical meals. [facility] diclofenac 2019-0 Yes 50mg 50 mg 2 Univ ers 50 mg EC 09-23 (two) ity of tablet 00:00: times [place] 00 daily with Medical meals. Branch diclofenac 2019-0 Yes 50mg 50 mg 2 Univ ers 50 mg EC 09-23 (two) ity of tablet 00:00: times [place] 00 daily with Medical meals. [facility] diclofenac 2019-0 Yes 50mg 50 mg 2 Univ ers 50 mg EC 09-23 (two) ity of tablet 00:00: times [place] 00 daily with Medical meals. Branch diclofenac 2019-0 Yes 50mg 50 mg 2 Univ ers 50 mg EC 09-23 (two) ity of tablet 00:00: times [place] 00 daily with Medical meals. Branch diclofenac 2019-0 Yes 50mg 50 mg 2 Univ ers 50 mg EC 09-23 (two) ity of tablet 00:00: times [place] 00 daily with Medical meals. Branch diclofenac 2019-0 Yes 50mg 50 mg 2 Univ ers 50 mg EC 09-23 (two) ity of tablet 00:00: times [place] 00 daily with Medical meals. Branch diclofenac 2019-0 Yes 50mg 50 mg 2 Univ ers 50 mg EC 09-23 (two) ity of tablet 00:00: times [place] 00 daily with Medical meals. Branch diclofenac 2019-0 Yes 50mg 50 mg 2 Univ ers 50 mg EC 09-23 (two) ity of tablet 00:00: times [place] 00 daily with Medical meals. Branch diclofenac 2019-0 Yes 50mg 50 mg 2 Univ ers 50 mg EC 09-23 (two) ity of tablet 00:00: times [place] 00 daily with Medical meals. Branch diclofenac 2019-0 Yes 50mg 50 mg 2 Univ ers 50 mg EC 09-23 (two) ity of tablet 00:00: times [place] 00 daily with Medical meals. Branch diclofenac 2019-0 Yes 50mg 50 mg 2 Univ ers 50 mg EC 09-23 (two) ity of tablet 00:00: times [place] 00 daily with Medical meals. Branch diclofenac 2019-0 Yes 50mg 50 mg 2 Univ ers 50 mg EC 09-23 (two) ity of tablet 00:00: times [place] 00 daily with Medical meals. Branch diclofenac 2019-0 Yes 50mg 50 mg 2 Univ ers 50 mg EC 09-23 (two) ity of tablet 00:00: times [place] 00 daily with Medical meals. Branch baclofen 10 Yes ONE-HALF Me moria mg oral - TO ONE l tablet 22:55: TABLET, Isabel 20 PO, BID, PRN NEEDED FOR MUSCLE PAIN OR SPASMS, # 30 tab, Pharmacy: [place] [address] baclofen 10 Yes ONE-HALF Me moria mg oral 09-15 TO ONE l tablet 22:55: TABLET, Isabel 20 PO, BID, PRN NEEDED FOR MUSCLE PAIN OR SPASMS, # 30 tab, Pharmacy: [place] [address] baclofen 10 Yes Univer s mg tablet 09-15 ity of 00:00: [place] 00 [facility] baclofen 10 0 Yes Univer s mg tablet 09-15 ity of 00:00: 00 [facility] baclofen 10 0 Yes Univer s mg tablet 09-15 ity of 00:00: 00 [facility] baclofen 10 Yes Univer s mg tablet 09-15 ity of 00:00: [place] 00 [facility] baclofen 10 2019-0 Yes Univer s mg tablet 09-15 ity of 00:00: [place] [facility] baclofen 10 2019-0 Yes Univer s mg tablet 09-15 ity of 00:00: [place] [facility] baclofen 10 2019-0 Yes Univer s mg tablet 09-15 ity of 00:00: [place] [facility] baclofen 10 2019-0 Yes Univer s mg tablet 09-15 ity of 00:00: [place] [facility] baclofen 10 2019-0 Yes Univer s mg tablet 09-15 ity of 00:00: [place] [facility] baclofen 10 2019-0 Yes Univer s mg tablet 09-15 ity of 00:00: [place] [facility] baclofen 10 2019-0 Yes Univer s mg tablet 09-15 ity of 00:00: [place] [facility] baclofen 10 2019-0 Yes Univer s mg tablet 09-15 ity of 00:00: [place] [facility] baclofen 10 2019-0 Yes Univer s mg tablet 09-15 ity of 00:00: [place] [facility] baclofen 10 2019-0 Yes Univer s mg tablet 09-15 ity of 00:00: [place] [facility] baclofen 10 2019-0 Yes Univer s mg tablet 09-15 ity of 00:00: [place] [facility] baclofen 10 2019-0 Yes Univer s mg tablet 09-15 ity of 00:00: [place] [facility] baclofen 10 2019-0 Yes Univer s mg tablet 09-15 ity of 00:00: [place] [facility] baclofen 10 2019-0 Yes Univer s mg tablet 09-15 ity of 00:00: [place] [facility] baclofen 10 2019-0 Yes Univer s mg tablet 09-15 ity of 00:00: [place] [facility] baclofen 10 2019-0 Yes Univer s mg tablet 09-15 ity of 00:00: [place] [facility] baclofen 10 2019-0 Yes Univer s mg tablet 09-15 ity of 00:00: [place] [facility] baclofen 10 2019-0 Yes Univer s mg tablet 09-15 ity of 00:00: [place] [facility] baclofen 10 2019-0 Yes Univer s mg tablet 09-15 ity of 00:00: [place] [facility] baclofen 10 2019-0 Yes Univer s mg tablet 09-15 ity of 00:00: [address] Branch baclofen 10 Yes Univer s mg tablet 09-15 ity of 00:00: [address] Ciprofloxac Yes 4 drp, Sammy hilary in 3 MG/ML 5-23 BOTH EARS, l / 21:35: BID, X 7 Miguel Dexamethaso 00 day, # 1 ne 1 MG/ML btl, 1 Otic Refill(s), Suspension Pharmacy: [Ciprodex] [place] [address] Ciprofloxac Yes 4 drp, Sammy hilary in 3 MG/ML 5-23 BOTH EARS, l / 21:35: BID, X 7 Miguel Dexamethaso 00 day, # 1 ne 1 MG/ML btl, 1 Otic Refill(s), Suspension Pharmacy: [Ciprodex] [place] [address] Rabeprazole Yes 20 mg = 1 M emoria sodium 20 3-05 tab, PO, l MG Enteric 16:51: Daily, # Her wu Coated 21 30 cap, 5 Tablet Refill(s), [Aciphex] Pharmacy: [place] [address] Rabeprazole Yes 20 mg = 1 M emoria sodium 20 3-05 tab, PO, l MG Enteric 16:51: Daily, # Her wu Coated 21 30 cap, 5 Tablet Refill(s), [Aciphex] Pharmacy: [place] [address] Rabeprazole No 20 mg = 1 M emoria sodium 20 3-05 tab, PO, l MG Enteric 16:46: Daily, X Her wu Coated day, # Tablet 30 tab, 2 [Aciphex] Refill(s), Pharmacy: [place] [address] Rabeprazole No 20 mg = 1 M emoria sodium 20 3-05 tab, PO, l MG Enteric 16:46: Daily, X Her wu Coated day, # Tablet 30 tab, 2 [Aciphex] Refill(s), Pharmacy: [place] [address] baclofen 10 No See Memori a mg oral 2-07 Instructio l tablet 13:57: ns, 1/2 to Christel nn 00 1 tab PO BID prn muscle pain or spasm. May cause drowsiness ., # 30 tab, 0 Refill(s), Pharmacy: [place] [address] baclofen 10 No See Memori a mg oral 2-07 Instructio l tablet 13:57: ns, 1/2 to Christel nn 00 1 tab PO BID prn muscle pain or spasm. May cause drowsiness ., # 30 tab, 0 Refill(s), Pharmacy: [place] [address] omeprazole 2017-03 No 40 mg = 1 Me moria 40 mg oral 1-26 cap, PO, l delayed 21:09: Daily, # Bony n release 00 90 cap, 1 capsule Refill(s), Pharmacy: [place] [address] omeprazole 2017-03 No 40 mg = 1 Me moria 40 mg oral 1-26 cap, PO, l delayed 21:09: Daily, # Bony n release 00 90 cap, 1 capsule Refill(s), Pharmacy: [place] [address] omeprazole 2017-03 No 40 mg = 1 Me moria 40 mg oral 1-26 cap, PO, l delayed 19:17: Daily, # Bony n release 00 90 cap, 0 capsule Refill(s) omeprazole 2017-03 No 40 mg = 1 Me moria 40 mg oral 1-26 cap, PO, l delayed 19:17: Daily, # Bony n release 00 90 cap, 0 capsule Refill(s) Ondansetron 2017-03 Yes 8 mg = 1 Me moria 8 MG 1-26 tab, PO, l Disintegrat 14:37: TID, PRN He rmann ing Tablet 00 Nausea and [Zofran] Vomiting, Dissolve tab under tongue, # 30 tab, 0 Refill(s), Pharmacy: [place] [address] Ondansetron 2017-03 Yes 8 mg = 1 Me moria 8 MG 1-26 tab, PO, l Disintegrat 14:37: TID, PRN He rmann ing Tablet 00 Nausea and [Zofran] Vomiting, Dissolve tab under tongue, # 30 tab, 0 Refill(s), Pharmacy: [place] [address] Bromphenira 2017-03 No See Memori a mine 1- Instructio l Maleate 0.4 15:00: ns, PRN Her wu MG/ML / 00 cough, 10 Dextrometho ml PO TID rphan prn cough, Hydrobromid may cause e 2 MG/ML / drowsiness Pseudoephed ., # 150 rine mL, 0 Hydrochlori Refill(s), de 6 MG/ML Pharmacy: Oral [facility] [[facility] 256 ] {2017-03 No See Memoria (Azithromyc 1-21 Instructio l in 250 MG 15:00: ns, Take 2 He rmann Oral Tablet 00 tablets by [Zithromax] mouth the ) } Pack first day [Z-PAKS] then 1 tablet by mouth days 2-5., X 5 day, # 6 tab, 0 Refill(s), Pharmacy: [place] [address] Bromphenira 2017-03 No See Memori a mine 1-21 Instructio l Maleate 0.4 15:00: ns, PRN Her wu MG/ML / 00 cough, 10 Dextrometho ml PO TID rphan prn cough, Hydrobromid may cause e 2 MG/ML / drowsiness Pseudoephed ., # 150 rine mL, 0 Hydrochlori Refill(s), de 6 MG/ML Pharmacy: Oral [facility] [[address]] {2017-03 No See Memoria (Azithromyc 1-21 Instructio l in 250 MG 15:00: ns, Take 2 He rmann Oral Tablet 00 tablets by [Zithromax] mouth the ) } Pack first day [Z-PAKS] then 1 tablet by mouth days 2-5., X 5 day, # 6 tab, 0 Refill(s), Pharmacy: [place] [address] Ibuprofen 2017-03 No 1 tab, PO, Me moria 200 MG / 1-21 Q4H, 0 l Pseudoephed 14:46: Refill(s) H ermann rine 00 Hydrochlori de 30 MG Oral Tablet [Advil Cold and Sinus] Ibuprofen 2017-03 No 1 tab, PO, Me moria 200 MG / 1-21 Q4H, 0 l Pseudoephed 14:46: Refill(s) H ermann rine 00 Hydrochlori de 30 MG Oral Tablet [Advil Cold and Sinus] hydrochloro No 12.5 mg = M emoria thiazide 9-11 1 tab, PO, l 12.5 mg 14:04: Daily, PRN Herm tracee oral tablet 00 lower extremity swelling, # 90 tab, 1 Refill(s), Pharmacy: [place] [address] hydrochloro No 12.5 mg = M emoria thiazide 9-11 1 tab, PO, l 12.5 mg 14:04: Daily, PRN Herm tracee oral tablet 00 lower extremity swelling, # 90 tab, 1 Refill(s), Pharmacy: [place] [address] Sulfamethox No 1 tab, PO, Memoria azole 800 8-22 BID, X 10 l MG / 14:03: day, # 20 Miguel Trimethopri 00 tab, 0 m 160 MG Refill(s), Oral Tablet Pharmacy: [Bactrim] [place] [address] Sulfamethox No 1 tab, PO, Memoria azole 800 8-22 BID, X 10 l MG / 14:03: day, # 20 Miguel Trimethopri 00 tab, 0 m 160 MG Refill(s), Oral Tablet Pharmacy: [Bactri] [place] [address] Nortriptyli Nortriptyli Yes HIMA ABDIEL Take 1 UT ne HCl - 25 ne HCl - 25 7-24 M.D. tablet at [facility] MG Oral MG Oral 00:00: bedtime ans Capsule Capsule 00 for 7 days, then increase to 2 tabs at bedtime. Jace Elite Yes 1 ea, Memori a Rolling 6-04 MISC, l Walker with 14:26: ONCE, Or He rmann Seat 00 cmparable walker. Dx: Chronic hip pain., # 1 ea, 0 Refill(s) Jace Elite Yes 1 ea, Memori a Rolling 6-04 MISC, l Walker with 14:26: ONCE, Or He rmann Seat 00 cmparable walker. Dx: Chronic hip pain., # 1 ea, 0 Refill(s) gabapentin Yes See Memoria 300 MG Oral 6-04 Instructio l Capsule 14:26: ns, 1 tab Christel nn [Neurontin] 00 PO HS x 3 days, then 1 tab PO BID x 3 days, then 1 tab PO TID, # 90 caplet, 2 Refill(s), Pharmacy: [place] [address] gabapentin Yes See Memoria 300 MG Oral 6-04 Instructio l Capsule 14:26: ns, 1 tab Christel nn [Neurontin] 00 PO HS x 3 days, then 1 tab PO BID x 3 days, then 1 tab PO TID, # 90 caplet, 2 Refill(s), Pharmacy: [place] [address] Unknown Yes taking Memoria Home 6-04 unknown l Medication 14:21: pain med Her wu 00 for UTI, Refill(s) 0 Ampicillin Yes 0 Memoria 6-04 Refill(s) l 14:21: [place] 00 Unknown Yes taking Memoria Home 6-04 unknown l Medication 14:21: pain med Her wu 00 for UTI, Refill(s) 0 Ampicillin Yes 0 Memoria 6-04 Refill(s) l 14:21: [place] 00 Cyclobenzap Yes See Memori a rine 5-22 Instructio l hydrochlori 13:21: ns, 1 tab H ermann de 5 MG 00 PO BID prn Oral Tablet muscle [Flexeril] pain or spasm. May cause drowsiness ., # 30 tab, 0 Refill(s), Pharmacy: [place] [address] Cyclobenzap Yes See Memori a rine 5-22 Instructio l hydrochlori 13:21: ns, 1 tab H ermann de 5 MG 00 PO BID prn Oral Tablet muscle [Flexeril] pain or spasm. May cause drowsiness ., # 30 tab, 0 Refill(s), Pharmacy: [place] [address] montelukast Yes 10 mg = 1 M emoria 10 MG Oral 4-03 tab, PO, l Tablet 16:15: Bedtime, # Christel nn [Singulair] 48 90 tab, 1 Refill(s), Pharmacy: [place] [address] montelukast Yes 10 mg = 1 M emoria 10 MG Oral 4-03 tab, PO, l Tablet 16:15: Bedtime, # Christel nn [Singulair] 48 90 tab, 1 Refill(s), Pharmacy: [place] [address] { Yes See Memoria (Methylpred 4-03 Instructio l nisolone 4 16:15: ns, PO, Herm tracee MG Oral 44 Take by Tablet mouth as [Medrol]) } directed Pack on label., [Medrol # 1 Pack, Dosepak] 0 Refill(s), Pharmacy: [place] [address] { Yes See Memoria (Methylpred 4-03 Instructio l nisolone 4 16:15: ns, PO, Herm tracee MG Oral 44 Take by Tablet mouth as [Medrol]) } directed Pack on label., [Medrol # 1 Pack, Dosepak] 0 Refill(s), Pharmacy: [place] [address] montekast No 10 mg = 1 M emoria 10 MG Oral 4-03 tab, PO, l Tablet 16:13: Bedtime, # Christel nn [Singulair] 00 90 tab, 1 Refill(s), Pharmacy: [place] [address] { No See Memoria (Methylpred 4-03 Instructio l nisolone 4 16:13: ns, PO, Herm tracee MG Oral 00 Take by Tablet mouth as [Medrol]) } directed Pack on label., [Medrol # 1 Pack, Dosepak] 0 Refill(s), Pharmacy: [place] [address] [facility] No 10 mg = 1 M emoria 10 MG Oral 4-03 tab, PO, l Tablet 16:13: Bedtime, # Christel nn [Singulair] 00 90 tab, 1 Refill(s), Pharmacy: [place] [address] { No See Memoria (Methylpred 4-03 Instructio l nisolone 4 16:13: ns, PO, Herm tracee MG Oral 00 Take by Tablet mouth as [Medrol]) } directed Pack on label., [Medrol # 1 Pack, Dosepak] 0 Refill(s), Pharmacy: [facility] [place] [address] montelukast Yes 10 mg = 1 M emoria 10 MG Oral 3-20 tab, PO, l Tablet 19:05: Bedtime, # Christel nn [Singulair] 00 90 tab, 1 Refill(s), Pharmacy: [place] [address] montelukast Yes 10 mg = 1 M emoria 10 MG Oral 3-20 tab, PO, l Tablet 19:05: Bedtime, # Christel nn [Singulair] 00 90 tab, 1 Refill(s), Pharmacy: [place] [address] Ondansetron 2018 Yes 8 mg = 1 Me moria 8 MG 3-06 tab, PO, l Disintegrat 22:36: TID, PRN He rmann ing Tablet 00 Nausea and [Zofran] Vomiting, Dissolve tab under tongue, # 30 tab, 0 Refill(s), Pharmacy: [place] [address] Ondansetron Yes 8 mg = 1 Me moria 8 MG 3-06 tab, PO, l Disintegrat 22:36: TID, PRN He rmann ing Tablet 00 Nausea and [Zofran] Vomiting, Dissolve tab under tongue, # 30 tab, 0 Refill(s), Pharmacy: [place] [address] montelukast No 10 mg = 1 M emoria 10 MG Oral -29 tab, PO, l Tablet 14:40: Bedtime, # Christel nn [Singulair] 00 30 tab, 1 Refill(s), Pharmacy: [place] [address] Cyclobenzap No See Memori a rine 04-15 Instructio l hydrochlori 14:40: ns, 1 tab H ermann de 5 MG 00 PO BID prn Oral Tablet muscle [Flexeril] pain or spasm. May cause drowsiness ., # 30 tab, 0 Refill(s), Pharmacy: [place] [address] predniSONE No See Memoria 10 mg oral -29 Instructio l tablet 14:40: ns, 4 tabs Christel nn 00 PO daily x 3 days, then 3 tabs PO daily x 3 days, then 2 tabs PO daily x 3 days, then 1 tab PO daily x 3 days then stop., # 30 tab, 0 Refill(s), Pharmacy: [place] [address] montelukast No 10 mg = 1 M emoria 10 MG Oral 1-29 tab, PO, l Tablet 14:40: Bedtime, # Christel nn [Singulair] 00 30 tab, 1 Refill(s), Pharmacy: [place] [address] Cyclobenzap No See Memori a rine 29 Instructio l hydrochlori 14:40: ns, 1 tab H ermann de 5 MG 00 PO BID prn Oral Tablet muscle [Flexeril] pain or spasm. May cause drowsiness ., # 30 tab, 0 Refill(s), Pharmacy: [place] [address] predniSONE 2018-0 No See Memoria 10 mg oral 04-15 Instructio l tablet 14:40: ns, 4 tabs Christel nn 00 PO daily x 3 days, then 3 tabs PO daily x 3 days, then 2 tabs PO daily x 3 days, then 1 tab PO daily x 3 days then stop., # 30 tab, 0 Refill(s), Pharmacy: [place] [address] Depo-Medrol 2016- No 80 mg, Sammy hilary 114 Route: IM, l 15:36: Drug form: Isabel 00 SUSP, ONCE, Dosing Weight 75.364, kg, Start date: 01/29/17 9:36:00 BLOCK SEALER, Stop date: 01/29/17 9:36:00 BLOCK SEALER Depo-Medrol 2017 No 80 mg, Sammy hilary 03-31 Route: IM, l 15:36: Drug form: Isabel 00 SUSP, ONCE, Dosing Weight 75.364, kg, Start date: 01/29/17 9:36:00 BLOCK SEALER, Stop date: 01/29/17 9:36:00 BLOCK SEALER Albuterol 2016-0 No 3 mL, Memoria 0.833 MG/ML 12-13 Route: l / 12:32: NEB, Miguel Ipratropium 00 Dosing [place] Weight 0.167 MG/ML 76.818, Inhalant kg, ONCE, Solution STAT, Start date: 12/13/16 7:32:00 CDT, Stop date: 12/13/16 7:32:00 CDT Sodium 2016-0 No 500 mL, Memoria Chloride 12-13 Rate: 25 l 0.9% IV 500 12:32: ml/hr, Herm tracee mL 00 Infuse over: 20 hr, Route: IV, Dosing Weight 76.818 kg, Total Volume: 500, Start date: 12/13/16 7:32:00 CDT, Duration: 30 day, Stop date: 01/12/17 7:31:00 CDT Albuterol 2017-0 No 3 mL, Memoria 0.833 MG/ML 12-13 Route: l / 12:32: NEB, Miguel Ipratropium 00 Dosing [place] Weight 0.167 MG/ML 76.818, Inhalant kg, ONCE, Solution STAT, Start date: 12/13/16 7:32:00 CDT, Stop date: 12/13/16 7:32:00 CDT Sodium 2016- No 500 mL, Memoria Chloride 12-13 Rate: 25 l 0.9% IV 500 12:32: ml/hr, Herm tracee mL 00 Infuse over: 20 hr, Route: IV, Dosing Weight 76.818 kg, Total Volume: 500, Start date: 12/13/16 7:32:00 CDT, Duration: 30 day, Stop date: 01/12/17 7:31:00 CDT Unknown Yes Refill(s) [facility] 9-27 0 l Medication 17:07: Miguel 00 Unknown Yes Refill(s) [facility] 9[facility] 0 l Medication 17:07: simvastatin 2015- Yes Hyperlipide 10mg Take 1 Lang (ZOCOR) 10 8-10 elliott, tablet by [facility] mg tablet 00:00: unspecified mouth at 00 hyperlipide bedtime elliott type nightly. piroxicam Yes Pain in 20mg QD Take 1 Devaughn ris (FELDENE) 7-26 both knees, capsule by [facility] 20 mg 00:00: unspecified mouth capsule 00 chronicity daily Take with food. traMADol Yes Bilateral 50mg Take 1 Mejia rris (ULTRAM) 50 6-07 low back tablet by [facility] mg tablet 00:00: pain, mouth 00 unspecified every 8 chronicity, hours as with needed . sciatica presence unspecified dexlansopra Yes Dyspepsia 30mg QD Take 1 Lang zole 5-27 capsule by [facility] (DEXILANT) 00:00: mouth 30 mg 00 daily. delayed release capsule Alum-Mag Yes Dyspepsia 10mL Take 10 mL Lang Hydroxide-S 5-27 by mouth [facility] th imeth 00:00: every 6 (ANTACID-SI 00 hours as METHICONE) needed for 400-400-40 Indigestio mg/5 mL n. oral suspension azelastine Yes Watery eyes 1[drp] Q.5D Instill 1 Lang (OPTIVAR) 3-28 Drop in Health 0.05 % 00:00: each eye 2 ophthalmic 00 times solution daily. beclomethas Yes Other 2{spray Q.5D Use 2 H arris one 1-05 allergic } Sprays in Health (BECONASE 00:00: rhinitis each AQ) 42 mcg 00 nostril 2 (0.042 %) times nasal spray daily. cetirizine Yes Other 10mg QD Take 1 Elsie is (ZYRTEC) 10 1-05 allergic tablet by [facility] mg tablet 00:00: rhinitis mouth 00 daily. ergocalcife 2014-03 Yes Vitamin D [id number] Take 1 Lang rol 0-22 deficiency capsule by [facility] lt (VITAMIN 00:00: mouth D2) 50,000 00 weekly. unit capsule mometasone Yes Other 2{spray QD 2 Sprays Lang (NASONEX) 8-24 allergic } by each [facility] 50 00:00: rhinitis nostril mcg/actuati 00 route on nasal daily. spray Aciphex 20 Aciphex 20 Yes [place] MG Oral MG Oral Physici Tablet Tablet ans Delayed Delayed Release Release Diclofenac Diclofenac Yes [place] Sodium 50 Sodium 50 Physi ci MG Oral MG Oral ans Tablet Tablet Delayed Delayed Release Release Immunizations Ordered Filled Immunization Date Status Comments [facility] e Immunization Name Name pneumococcal 2021-10-04 Completed [facility] wu 20-valent conjugate 14:46:00 vaccine<sup>1</sup> pneumococcal 2021-10-04 Completed [facility] 20-valent conjugate 14:46:00 vaccine<sup>1</sup> diphtheria/pertussi 2021-04-05 Completed [facility], acel/tetanus 00:00:00 adult pneumococcal 2021-04-05 Completed [facility] wu 23-valent vaccine 00:00:00 hepatitis B adult 2021-04-05 Completed [facility] vaccine 00:00:00 SARS-COV-2 COVID-19 2021-02-20 Completed [facility] VACCINE 00:00:00 [facility] SARS-COV-2 COVID-19 2021-02-20 Completed [facility] MODERNA VACCINE 00:00:00 [facility] SARS-COV-2 COVID-19 2021-02-20 Completed [facility] VACCINE 00:00:00 [facility] SARS-COV-2 COVID-19 2021-02-20 Completed [facility] MODERNA 12+ YRS 00:00:00 [place] [facility] SARS-COV-2 COVID-19 2021-02-20 Completed [facility] MODERNA 12+ YRS 00:00:00 [place] [facility] SARS-COV-2 COVID-19 2021-02-20 Completed [facility] MODERNA 12+ YRS 00:00:00 [place] [facility] SARS-COV-2 COVID-19 2021-02-20 Completed [facility] MODERNA 12+ YRS 00:00:00 [place] [facility] SARS-COV-2 COVID-19 2021-02-20 Completed [facility] MODERNA 12+ YRS 00:00:00 [place] [facility] SARS-COV-2 COVID-19 2021-02-20 Completed [facility] MODERNA 12+ YRS 00:00:00 [place] [facility] SARS-COV-2 COVID-19 2021-02-20 Completed [facility] MODERNA 12+ YRS 00:00:00 [place] [facility] SARS-COV-2 COVID-19 2021-02-20 Completed [facility] MODERNA 12+ YRS 00:00:00 [place] [facility] SARS-COV-2 COVID-19 2021-02-20 Completed [facility] MODERNA 12+ YRS 00:00:00 [place] [facility] SARS-COV-2 COVID-19 2021-02-20 Completed [facility] MODERNA 12+ YRS 00:00:00 [place] [facility] SARS-COV-2 COVID-19 2021-02-20 Completed [facility] MODERNA 12+ YRS 00:00:00 [place] [facility] SARS-COV-2 COVID-19 2021-02-20 Completed [facility] MODERNA 12+ YRS 00:00:00 [place] [facility] SARS-COV-2 COVID-19 2021-02-20 Completed [facility] MODERNA 12+ YRS 00:00:00 [place] [facility] SARS-COV-2 COVID-19 2021-02-20 Completed [facility] MODERNA 12+ YRS 00:00:00 [place] [facility] SARS-COV-2 COVID-19 2021-02-20 Completed [facility] MODERNA 12+ YRS 00:00:00 [place] [facility] SARS-COV-2 COVID-19 2021-02-20 Completed [facility] MODERNA 12+ YRS 00:00:00 [place] [facility] SARS-COV-2 COVID-19 2021-02-20 Completed [facility] MODERNA 12+ YRS 00:00:00 [place] [facility] SARS-COV-2 COVID-19 2021-02-20 Completed [facility] MODERNA 12+ YRS 00:00:00 [place] [facility] SARS-COV-2 COVID-19 2021-02-20 Completed [facility] MODERNA 12+ YRS 00:00:00 [place] [facility] SARS-COV-2 COVID-19 2021-02-20 Completed [facility] MODERNA 12+ YRS 00:00:00 [place] [facility] SARS-COV-2 COVID-19 2021-02-20 Completed [facility] MODERNA 12+ YRS 00:00:00 [place] [facility] SARS-COV-2 COVID-19 2021-02-20 Completed [facility] MODERNA 12+ YRS 00:00:00 [place] [facility] hepatitis B adult 2020-07-28 Completed [facility] vaccine 00:00:00 diphtheria/pertussi 2020-07-27 Completed [facility], acel/tetanus 00:00:00 adult SARS-COV-2 COVID-19 2020-06-12 Completed [facility] MODERNA VACCINE 00:00:00 [place] [facility] SARS-COV-2 COVID-19 2020-06-12 Completed [facility] MODERNA VACCINE 00:00:00 [place] [facility] SARS-COV-2 COVID-19 2020-06-12 Completed [facility] MODERNA VACCINE 00:00:00 [place] [facility] SARS-COV-2 COVID-19 2020-06-12 Completed [facility] MODERNA 12+ YRS 00:00:00 [place] [facility] SARS-COV-2 COVID-19 2020-06-12 Completed [facility] MODERNA 12+ YRS 00:00:00 [place] [facility] SARS-COV-2 COVID-19 2020-06-12 Completed [facility] MODERNA 12+ YRS 00:00:00 [place] [facility] SARS-COV-2 COVID-19 2020-06-12 Completed [facility] MODERNA 12+ YRS 00:00:00 [place] [facility] SARS-COV-2 COVID-19 2020-06-12 Completed [facility] of MODERNA 12+ YRS 00:00:00 [place] [facility] SARS-COV-2 COVID-19 2020-06-12 Completed [facility] of MODERNA 12+ YRS 00:00:00 [place] [facility] SARS-COV-2 COVID-19 2020-06-12 Completed [facility] of MODERNA 12+ YRS 00:00:00 [place] [facility] SARS-COV-2 COVID-19 2020-06-12 Completed [facility] of MODERNA 12+ YRS 00:00:00 [place] [facility] SARS-COV-2 COVID-19 2020-06-12 Completed [facility] MODERNA 12+ YRS 00:00:00 [place] [facility] SARS-COV-2 COVID-19 2020-06-12 Completed [facility] MODERNA 12+ YRS 00:00:00 [place] [facility] SARS-COV-2 COVID-19 2020-06-12 Completed [facility] MODERNA 12+ YRS 00:00:00 [place] [facility] SARS-COV-2 COVID-19 2020-06-12 Completed [facility] MODERNA 12+ YRS 00:00:00 [place] [facility] SARS-COV-2 COVID-19 2020-06-12 Completed [facility] of MODERNA 12+ YRS 00:00:00 [place] [facility] SARS-COV-2 COVID-19 2020-06-12 Completed [facility] of MODERNA 12+ YRS 00:00:00 [place] [facility] SARS-COV-2 COVID-19 2020-06-12 Completed [facility] MODERNA 12+ YRS 00:00:00 [place] [facility] SARS-COV-2 COVID-19 2020-06-12 Completed [facility] MODERNA 12+ YRS 00:00:00 [place] [facility] SARS-COV-2 COVID-19 2020-06-12 Completed [facility] MODERNA 12+ YRS 00:00:00 [place] [facility] SARS-COV-2 COVID-19 2020-06-12 Completed [facility] MODERNA 12+ YRS 00:00:00 [place] [facility] SARS-COV-2 COVID-19 2020-06-12 Completed [facility] MODERNA 12+ YRS 00:00:00 [place] [facility] SARS-COV-2 COVID-19 2020-06-12 Completed [facility] MODERNA 12+ YRS 00:00:00 [place] [facility] SARS-COV-2 COVID-19 2020-06-12 Completed [facility] MODERNA 12+ YRS 00:00:00 [place] [facility] SARS-COV-2 COVID-19 2020-06-12 Completed [facility] MODERNA 12+ YRS 00:00:00 [place] [facility] [id number] 2020-06-12 Completed [facility] RNA-1273vaxMODERNA 00:00:00 [id number] 2020-06-12 Completed [facility] RNA-1273vaxMODERNA 00:00:00 SARS-COV-2 COVID-19 2020-05-15 Completed [facility] MODERNA VACCINE 00:00:00 [place] [facility] SARS-COV-2 COVID-19 2020-05-15 Completed [facility] MODERNA VACCINE 00:00:00 [place] [facility] SARS-COV-2 COVID-19 2020-05-15 Completed [facility] MODERNA VACCINE 00:00:00 [place] [facility] SARS-COV-2 COVID-19 2020-05-15 Completed [facility] MODERNA 12+ YRS 00:00:00 [place] [facility] SARS-COV-2 COVID-19 2020-05-15 Completed [facility] of MODERNA 12+ YRS 00:00:00 [place] [facility] SARS-COV-2 COVID-19 2020-05-15 Completed [facility] of MODERNA 12+ YRS 00:00:00 [place] [facility] SARS-COV-2 COVID-19 2020-05-15 Completed [facility] of MODERNA 12+ YRS 00:00:00 [place] [facility] SARS-COV-2 COVID-19 2020-05-15 Completed [facility] of MODERNA 12+ YRS 00:00:00 [place] [facility] SARS-COV-2 COVID-19 2020-05-15 Completed [facility] of MODERNA 12+ YRS 00:00:00 [place] [facility] SARS-COV-2 COVID-19 2020-05-15 Completed [facility] of MODERNA 12+ YRS 00:00:00 [place] [facility] SARS-COV-2 COVID-19 2020-05-15 Completed [facility] of MODERNA 12+ YRS 00:00:00 [place] [facility] SARS-COV-2 COVID-19 2020-05-15 Completed [facility] of MODERNA 12+ YRS 00:00:00 [place] [facility] SARS-COV-2 COVID-19 2020-05-15 Completed [facility] of MODERNA 12+ YRS 00:00:00 [place] [facility] SARS-COV-2 COVID-19 2020-05-15 Completed [facility] of MODERNA 12+ YRS 00:00:00 [place] [facility] SARS-COV-2 COVID-19 2020-05-15 Completed [facility] of MODERNA 12+ YRS 00:00:00 [place] [facility] SARS-COV-2 COVID-19 2020-05-15 Completed [facility] of MODERNA 12+ YRS 00:00:00 [place] [facility] SARS-COV-2 COVID-19 2020-05-15 Completed [facility] of MODERNA 12+ YRS 00:00:00 [place] [facility] SARS-COV-2 COVID-19 2020-05-15 Completed [facility] of MODERNA 12+ YRS 00:00:00 [place] [facility] SARS-COV-2 COVID-19 2020-05-15 Completed [facility] of MODERNA 12+ YRS 00:00:00 [place] [facility] SARS-COV-2 COVID-19 2020-05-15 Completed [facility] of MODERNA 12+ YRS 00:00:00 [place] [facility] SARS-COV-2 COVID-19 2020-05-15 Completed [facility] of MODERNA 12+ YRS 00:00:00 [place] [facility] SARS-COV-2 COVID-19 2020-05-15 Completed [facility] of MODERNA 12+ YRS 00:00:00 [place] [facility] SARS-COV-2 COVID-19 2020-05-15 Completed [facility] of MODERNA 12+ YRS 00:00:00 [facility] ical VACCINE Branch SARS-COV-2 COVID-19 2020-05-15 Completed Unive rsity of MODERNA 12+ YRS 00:00:00 [facility] ical VACCINE Branch SARS-COV-2 COVID-19 2020-05-15 Completed [facility] rs[facility] of MODERNA 12+ YRS 00:00:00 [facility] ical VACCINE Branch [id number] 2020-05-15 Completed [facility] RNA-1273vaxMODERNA 00:00:00 [id number] 2020-05-15 Completed [facility] RNA-1273vaxMODERNA 00:00:00 Influenza Virus 2019-11-30 Completed [facility] Vaccine [facility] 00:00:00 [facility], Preserv and ABX Branc h Free 18-64 YRS Influenza Virus 2019-11-30 Completed [facility] Vaccine [facility] 00:00:00 [facility], Preserv and ABX Branc h Free 18-64 YRS Influenza Virus 2019-11-30 Completed [facility] of Vaccine Recomb Quad 00:00:00 [facility], Preserv and ABX Branc h Free 18-64 YRS Influenza Virus 2019-11-30 Completed [facility] of Vaccine Recomb Quad 00:00:00 [facility], Preserv and ABX Branc h Free 1864 YRS Influenza Virus 2019-11-30 Completed [facility] Vaccine [facility] Quad 00:00:00 [facility], Preserv and ABX Branc h Free 18-64 YRS Influenza Virus 2019-11-30 Completed [facility] Vaccine [facility]comb Quad 00:00:00 [facility], Preserv and ABX Branc h Free 18-64 YRS Influenza Virus 2019-11-30 Completed [facility] Vaccine [facility] Quad 00:00:00 [facility], Preserv and ABX Branc h Free 18-64 YRS Influenza Virus 2019-11-30 Completed [facility] Vaccine Recomb Quad 00:00:00 [facility], Preserv and ABX Branc h Free 18-64 YRS Influenza Virus 2019-11-30 Completed [facility] Vaccine Recomb Quad 00:00:00 [facility], Preserv and ABX Branc h Free 18-64 YRS Influenza Virus 2019-11-30 Completed [facility] Vaccine Recomb Quad 00:00:00 [facility], Preserv and ABX Branc h Free 18-64 YRS Influenza Virus 2019-11-30 Completed [facility] Vaccine [facility]comb Quad 00:00:00 [facility], Preserv and ABX Branc h Free 18-64 YRS Influenza Virus 2019-11-30 Completed [facility] Vaccine Recomb Quad 00:00:00 [facility], Preserv and ABX Branc h Free 18-64 YRS Influenza Virus 2019-11-30 Completed [facility] Vaccine Recomb Quad 00:00:00 [facility], Preserv and ABX Branc h Free 18-64 YRS Influenza Virus 2019-11-30 Completed [facility] Vaccine Recomb Quad 00:00:00 [facility], Preserv and ABX Branc h Free 18-64 YRS Influenza Virus 2019-11-30 Completed [facility] Vaccine [facility]comb Quad 00:00:00 [facility], Preserv and ABX Branc h Free 18-64 YRS Influenza Virus 2019-11-30 Completed [facility] Vaccine [facility]comb Quad 00:00:00 [facility], Preserv and ABX Branc h Free 18-64 YRS Influenza Virus 2019-11-30 Completed [facility] Vaccine [facility]comb Quad 00:00:00 [facility], Preserv and ABX Branc h Free 18-64 YRS Influenza Virus 2019-11-30 Completed [facility] Vaccine [facility] Quad 00:00:00 [facility], Preserv and ABX Branc h Free 18-64 YRS Influenza Virus 2019-11-30 Completed [facility] Vaccine [facility]comb Quad 00:00:00 [facility], Preserv and ABX Branc h Free 18-64 YRS Influenza Virus 2019-11-30 Completed [facility] Vaccine Recomb Quad 00:00:00 [facility], Preserv and ABX Branc h Free 18-64 YRS Influenza Virus 2019-11-30 Completed [facility] Vaccine Recomb Quad 00:00:00 [facility], Preserv and ABX Branc h Free 18-64 YRS Influenza Virus 2019-11-30 Completed [facility] Vaccine Recomb Quad 00:00:00 [facility], Preserv and ABX Branc h Free 18-64 YRS Influenza Virus 2019-11-30 Completed [facility] Vaccine Recomb Quad 00:00:00 [facility], Preserv and ABX Branc h Free 18-64 YRS Influenza Virus 2019-11-30 Completed [facility] Vaccine [facility]comb Quad 00:00:00 [facility], Preserv and ABX Branc h Free 18-64 YRS Influenza Virus 2019-11-30 Completed [facility] Vaccine Recomb Quad 00:00:00 [facility], Preserv and ABX Branc h Free 18-64 YRS influenza virus 2019-02-11 Completed [facility] vaccine, 15:19:00 inactivated<sup>1</ sup> influenza virus 2019-02-11 Completed [facility] vaccine, 15:19:00 inactivated<sup>2</ sup> influenza virus 2019-02-11 Completed [facility] vaccine, 15:19:00 inactivated<sup>3</ sup> influenza virus 2019-02-11 Completed [facility] vaccine, 15:19:00 inactivated<sup>1</ sup> influenza virus 2019-02-11 Completed [facility] vaccine, 15:19:00 inactivated<sup>2</ sup> diphtheria/pertussi 2017-11-06 Completed [facility], acel/tetanus 14:36:00 adult<sup>1</sup> diphtheria/pertussi 2017-11-06 Completed [facility], acel/tetanus 14:36:00 adult<sup>3</sup> diphtheria/pertussi 2017-11-06 Completed [facility], acel/tetanus 14:36:00 adult<sup>2</sup> diphtheria/pertussi 2017-11-06 Completed [facility], acel/tetanus 14:36:00 adult<sup>2</sup> diphtheria/pertussi 2017-11-06 Completed [facility], acel/tetanus 14:36:00 adult<sup>1</sup> diphtheria/pertussi 2017-11-06 Completed [facility], acel/tetanus 14:36:00 adult<sup>3</sup> Vital Signs Vital Name Observation Time Observation Value Comments Source Systolic blood 2022-08-23 136 mm[Hg] [facility] of pressure 19:57:00 [facility] Diastolic blood 2022-08-23 88 mm[Hg] University o f pressure 19:57:00 [facility] Heart rate 2022-08-23 65 /min University of 19:57:00 [facility] Respiratory rate 2022-08-23 16 /min University of 19:57:00 [facility] Body height 2022-08-23 160 cm University of 19:57:00 [facility] Body weight 2022-08-23 71.487 kg University of 19:57:00 [facility] BMI 2022-08-23 27.92 kg/m2 University of 19:57:00 [facility] Oxygen saturation 2022-08-23 95 /min [facility] in Arterial blood 19:57:00 [facility] by Pulse oximetry Branch Systolic blood 2022-05-03 151 mm[Hg] University of pressure 14:50:00 [facility] Diastolic blood 2022-05-03 87 mm[Hg] University o f pressure 14:50:00 [facility] Heart rate 2022-05-03 64 /min University of 14:50:00 [facility] Respiratory rate 2022-05-03 15 /min University of 14:50:00 [facility] Oxygen saturation 2022-05-03 96 /min [facility] in Arterial blood 14:50:00 [facility] danica by Pulse oximetry Branch Body temperature 2022-05-03 36.44 Taya University of 14:37:00 [facility] Body height 2022-05-03 160 cm University of 13:20:00 [facility] Body weight 2022-05-03 71.668 kg University of 13:20:00 [facility] BMI 2022-05-03 27.99 kg/m2 University of 13:20:00 [facility] Systolic blood 2022-05-03 151 mm[Hg] [facility] of pressure 14:50:00 [facility] Diastolic blood 2022-05-03 87 mm[Hg] University o f pressure 14:50:00 [facility] Heart rate 2022-05-03 64 /min [facility] of 14:50:00 [facility] Respiratory rate 2022-05-03 15 /min University of 14:50:00 [facility] Oxygen saturation 2022-05-03 96 /min [facility] Arterial blood 14:50:00 [facility] by Pulse oximetry [place] Body temperature 2022-05-03 36.44 Taya University of 14:37:00 [facility] Body height 2022-05-03 160 cm University of 13:20:00 [facility] Body weight 2022-05-03 71.668 kg University of 13:20:00 [facility] BMI 2022-05-03 27.99 kg/m2 University of 13:20:00 [facility] Systolic blood 2022-04-25 118 mm[Hg] University of pressure 18:57:00 [facility] Diastolic blood 2022-04-25 76 mm[Hg] University o f pressure 18:57:00 [facility] Heart rate 2022-04-25 78 /min University of 18:57:00 [facility] Body temperature 2022-04-25 36.5 Taya University of 18:57:00 [facility] Body height 2022-04-25 160 cm University of 18:57:00 [facility] Body weight 2022-04-25 72.167 kg University of 18:57:00 [facility] BMI 2022-04-25 28.18 kg/m2 University of 18:57:00 [facility] Systolic blood 2022-03-22 137 mm[Hg] University of pressure 20:35:00 [facility] Diastolic blood 2022-03-22 81 mm[Hg] University o f pressure 20:35:00 [facility] Heart rate 2022-03-22 63 /min University of 20:35:00 [facility] Body temperature 2022-03-22 36.33 Taya University of 20:35:00 [facility] Body height 2022-03-22 160 cm University 20:35:00 [facility] Body weight 2022-03-22 73.074 kg University 20:35:00 [facility] BMI 2022-03-22 28.54 kg/m2 University 20:35:00 [facility] Oxygen saturation 2022-03-22 98 /min [facility] in Arterial blood 20:35:00 [facility] Pulse oximetry [place] Systolic blood 2021-10-19 116 mm[Hg] [place] of pressure 13:49:00 [facility] Diastolic blood 2021-10-19 81 mm[Hg] [place] o f pressure 13:49:00 [facility] Heart rate 2021-10-19 90 /min [facility] 13:49:00 [facility] Body temperature 2021-10-19 36 Taya [facility] 13:49:00 [facility] Body height 2021-10-19 160 cm [facility] 13:49:00 [facility] Body weight 2021-10-19 71.668 kg [facility] 13:49:00 [facility] BMI 2021-10-19 27.99 kg/m2 University 13:49:00 [facility] Heart Rate 2022-01-29 [facility] 20:26:00 Systolic (mm Hg) 2022-01-29 [facility] 20:26:00 Diastolic (mm Hg) 2022-01-29 [facility] H ermann 20:26:00 Height 2022-01-29 5 [ft_i] [facility] 20:26:00 Weight 2022-01-29 [facility] 20:26:00 BMI Calculated 2022-01-29 [facility] 20:26:00 Temperature Oral 2021-10-04 98.1 F [facility] rmann (F) 13:35:00 Heart Rate 2021-10-04 [facility] 13:35:00 Systolic (mm Hg) 2021-10-04 [facility] 13:35:00 Diastolic (mm Hg) 2021-10-04 [facility] 13:35:00 Height 2021-10-04 162.56 cm [facility] 13:35:00 Weight 2021-10-04 [facility] 13:35:00 BMI Calculated 2021-10-04 [facility] 13:35:00 Temperature Oral 2021-08-17 98.5 F [facility] (F) 14:00:00 Heart Rate 2021-08-17 [facility] 14:00:00 Systolic (mm Hg) 2021-08-17 [facility] 14:00:00 Diastolic (mm Hg) 2021-08-17 [facility] 14:00:00 Height 2021-08-17 162.56 cm [facility] 14:00:00 Weight 2021-08-17 [facility] 14:00:00 BMI Calculated 2021-08-17 [facility] 14:00:00 Temperature Oral 2021-04-19 98.6 F [facility] (F) 14:56:00 Heart Rate 2021-04-19 [facility] 14:56:00 Systolic (mm Hg) 2021-04-19 [facility] 14:56:00 Diastolic (mm Hg) 2021-04-19 [facility] H ermann 14:56:00 Height 2021-04-19 162.56 cm [facility] 14:56:00 Weight 2021-04-19 [facility] 14:56:00 BMI Calculated 2021-04-19 [facility] 14:56:00 Systolic (mm Hg) 2020-11-14 [facility] 20:11:00 Diastolic (mm Hg) 2020-11-14 [facility] H ermann 20:11:00 Heart Rate 2020-11-14 [facility] 20:11:00 Systolic (mm Hg) 2020-11-09 [facility] 14:20:00 Diastolic (mm Hg) 2020-11-09 [facility] H ermann 14:20:00 Heart Rate 2020-11-09 [facility] 14:20:00 Temperature Oral 2020-11-09 98.7 F [facility] rmann (F) 14:20:00 Height 2020-11-09 162.56 cm [facility] 14:20:00 Weight 2020-11-09 [facility] 14:20:00 BMI Calculated 2020-11-09 [facility] 14:20:00 Systolic (mm Hg) 2020-07-26 [facility] 18:42:00 Diastolic (mm Hg) 2020-07-26 [facility] 18:42:00 Heart Rate 2020-07-26 [facility] 18:42:00 Temperature Oral 2020-07-26 97.9 F [facility] Oniel rmann (F) 18:42:00 Height 2020-07-26 162.56 cm [facility] 18:42:00 Weight 2020-07-26 [facility] 18:42:00 BMI Calculated 2020-07-26 [facility] 18:42:00 Systolic (mm Hg) 2020-07-12 [facility] 13:37:00 Diastolic (mm Hg) 2020-07-12 [facility] 13:37:00 Heart Rate 2020-07-12 [facility] 13:37:00 Height 2020-07-12 162.56 cm [facility] 13:37:00 Weight 2020-07-12 [facility] 13:37:00 BMI Calculated 2020-07-12 [facility] 13:37:00 Systolic (mm Hg) 2020-05-23 [facility] rmann 15:33:00 Diastolic (mm Hg) 2020-05-23 [facility] ermann 15:33:00 Heart Rate 2020-05-23 [facility] 15:33:00 Temperature Oral 2020-05-23 98.7 F [facility] Oniel rmann (F) 15:33:00 Height 2020-05-23 162.56 cm [facility] 15:33:00 Weight 2020-05-23 [facility] 15:33:00 BMI Calculated 2020-05-23 [facility] 15:33:00 Systolic (mm Hg) 2019-12-16 [facility] Oniel rmann 13:50:00 Diastolic (mm Hg) 2019-12-16 [facility] H ermann 13:50:00 Heart Rate 2019-12-16 [facility] 13:50:00 Temperature Oral 2019-12-16 97.6 F [facility] Oniel rmann (F) 13:50:00 Height 2019-12-16 162.56 cm [facility] 13:50:00 Weight 2019-12-16 [facility] 13:50:00 BMI Calculated 2019-12-16 [facility] 13:50:00 Systolic blood 2019-12-15 123 mm[Hg] [facility]: LUE[facility] 09:53:00 Position: Sitting Diastolic blood 2019-12-15 71 mm[Hg] [facility]: LUE[facility] 09:53:00 Position: Sitting Body height 2019-12-15 63 [in_us] [facility] 09:53:00 Heart Rate 2019-12-15 59 /min [facility] 09:53:00 Systolic blood 2019-11-10 110 mm[Hg] [facility]: LUE[facility] 08:33:00 Position: Sitting Diastolic blood 2019-11-10 70 mm[Hg] [facility]: LUE[facility] 08:33:00 Position: Sitting Body height 2019-11-10 63 [in_us] [facility] 08:33:00 Weight 2019-11-10 159 [lb_av] [facility] 08:33:00 Body mass index 2019-11-10 28.17 kg/m2 [facility] (BMI) [Ratio] 08:33:00 Body temperature 2019-11-10 96.6 [degF] [facility] 08:33:00 Heart Rate 2019-11-10 63 /min [facility] 08:33:00 Systolic blood 2019-10-19 109 mm[Hg] [facility]: LUE[facility] 10:00:00 Position: Sitting Diastolic blood 2019-10-19 73 mm[Hg] [facility]: LUE[facility] 10:00:00 Position: Sitting Body height 2019-10-19 63 [in_us] [facility] 10:00:00 Weight 2019-10-19 162 [lb_av] [facility] 10:00:00 Body mass index 2019-10-19 28.7 kg/m2 [facility] (BMI) [Ratio] 10:00:00 Body temperature 2019-10-19 98 [degF] Method: [facility] 10:00:00 Temporal Heart Rate 2019-10-19 65 /min [facility] 10:00:00 Systolic blood 2019-08-18 106 mm[Hg] [facility]: LUE[facility] 08:13:00 Position: Sitting Diastolic blood 2019-08-18 68 mm[Hg] [facility]: LUE[facility] 08:13:00 Position: Sitting Body height 2019-08-18 64 [in_us] [facility] 08:13:00 Weight 2019-08-18 158 [lb_av] [facility] 08:13:00 Body mass index 2019-08-18 27.12 kg/m2 [facility] (BMI) [Ratio] 08:13:00 Body temperature 2019-08-18 97.7 [degF] [facility] 08[facility]13:00 Heart Rate 2019-08-18 69 /min [facility] 08:13:00 Systolic (mm Hg) 2019-08-03 [facility] 19[facility]15:00 Diastolic (mm Hg) 2019-08-03 [facility] 19:15:00 Heart Rate 2019-08-03 [facility] 19:15:00 Temperature Oral 2019-08-03 98.1 F [facility] (F) 19:15:00 Height 2019-08-03 162.56 cm [facility] 19:15:00 Weight 2019-08-03 [facility] 19:15:00 BMI Calculated 2019-08-03 [facility] 19:15:00 Systolic blood 2019-07-28 107 mm[Hg] [facility]: LUE[facility] 13:08:00 Position: Sitting Diastolic blood 2019-07-28 73 mm[Hg] [facility]: LUE[facility] 13:08:00 Position: Sitting Body height 2019-07-28 64 [in_us] [facility] 13:08:00 Weight 2019-07-28 159 [lb_av] [facility] 13:08:00 Body mass index 2019-07-28 27.29 kg/m2 [facility] (BMI) [Ratio] 13:08:00 Body temperature 2019-07-28 96.4 [degF] [facility] 13:08:00 Heart Rate 2019-07-28 71 /min [facility] 13:08:00 Systolic (mm Hg) 2019-07-16 [facility] 14:56:00 Diastolic (mm Hg) 2019-07-16 [facility] 14:56:00 Heart Rate 2019-07-16 [facility] 14:56:00 Temperature Oral 2019-07-16 97.9 F [facility] (F) 14:56:00 Height 2019-07-16 162.56 cm [facility] 14:56:00 Weight 2019-07-16 [facility] 14:56:00 BMI Calculated 2019-07-16 [facility] 14:56:00 Systolic blood 2019-07-13 111 mm[Hg] [facility] 10:26:00 Position: Sitting Diastolic blood 2019-07-13 69 mm[Hg] [facility] 10:26:00 Position: Sitting Body height 2019-07-13 64 [in_us] [facility] 10:26:00 Weight 2019-07-13 161 [lb_av] [facility] 10:26:00 Body mass index 2019-07-13 27.64 kg/m2 [facility] (BMI) [Ratio] 10:26:00 Heart Rate 2019-07-13 79 /min [facility] 10:26:00 Systolic (mm Hg) 2019-06-01 [facility] 13:16:00 Diastolic (mm Hg) 2019-06-01 [facility] 13:16:00 Heart Rate 2019-06-01 [facility] 13:16:00 Temperature Oral 2019-06-01 98.2 F [facility] He rmann (F) 13:16:00 Height 2019-06-01 162.56 cm [facility] 13:16:00 Weight 2019-06-01 [facility] 13:16:00 BMI Calculated 2019-06-01 [facility] 13:16:00 Systolic (mm Hg) 2019-05-20 [facility] 19:19:00 Diastolic (mm Hg) 2019-05-20 [facility] 19:19:00 Heart Rate 2019-05-20 [facility] 19:19:00 Temperature Oral 2019-05-20 98.2 F [facility] He rmann (F) 19:19:00 Height 2019-05-20 162.56 cm [facility] 19:19:00 Weight 2019-05-20 [facility] Bony n 19:19:00 BMI Calculated 2019-05-20 [facility] 19:19:00 BP Systolic 2019-04-28 107 mm[Hg] [facility]: [facility]; [facility] 14:42:00 Position: Sitting BP Diastolic 2019-04-28 71 mm[Hg] [facility]: [facility]; [facility] 14:42:00 Position: Sitting Height 2019-04-28 64 [in_us] [facility] 14:42:00 Weight 2019-04-28 163 [lb_av] [facility] 14:42:00 Body Mass Index 2019-04-28 27.98 kg/m2 [facility] Calculated 14:42:00 Heart Rate 2019-04-28 72 /min [facility] 14:42:00 BP Systolic 2019-02-23 102 mm[Hg] Location: [facility] Physicians 14:00:00 Position: Sitting BP Diastolic 2019-02-23 64 mm[Hg] Location: [facility] Physicians 14:00:00 Position: Sitting Height 2019-02-23 64 [in_us] [facility] 14:00:00 Weight 2019-02-23 169 [lb_av] [facility] 14:00:00 Body Mass Index 2019-02-23 29.01 kg/m2 [facility] Calculated 14:00:00 Heart Rate 2019-02-23 75 /min [facility] 14:00:00 Systolic (mm Hg) 2019-02-11 [facility] 14:49:00 Diastolic (mm Hg) 2019-02-11 [facility] 14:49:00 Heart Rate 2019-02-11 [facility] 14:49:00 Temperature Oral 2019-02-11 98.2 F [facility] (F) 14:49:00 Height 2019-02-11 160.02 cm [facility] 14:49:00 Weight 2019-02-11 [facility] 14:49:00 BMI Calculated 2019-02-11 [facility] 14:49:00 Heart Rate 2018-10-15 [facility] 14:21:00 Temperature Oral 2018-10-15 98.3 F [facility] On[facility] (F) 14:21:00 Systolic (mm Hg) 2018-10-15 [facility] 14:21:00 Diastolic (mm Hg) 2018-10-15 [facility] 14:21:00 Weight 2018-09-23 [facility] 14:02:00 BMI Calculated 2018-09-23 [facility] 14:02:00 Height 2018-09-23 162.56 cm [facility] 14:02:00 Systolic (mm Hg) 2018-09-23 [facility] 14:02:00 Diastolic (mm Hg) 2018-09-23 [facility] 14:02:00 Heart Rate 2018-09-23 [facility] 14:02:00 Temperature Oral 2018-09-23 98.1 F [facility] (F) 14:02:00 BMI Calculated 2018-08-07 [facility] 21:21:00 Height 2018-08-07 162.56 cm [facility] 21:21:00 Weight 2018-08-07 [facility] 21:21:00 Temperature Oral 2018-08-07 98.1 F [facility] (F) 21:21:00 Heart Rate 2018-08-07 [facility] 21:21:00 Systolic (mm Hg) 2018-08-07 [facility] 21:21:00 Diastolic (mm Hg) 2018-08-07 [facility] 21:21:00 BMI Calculated 2018-05-20 [facility] 16:33:00 Weight 2018-05-20 [facility] 16:33:00 Height 2018-05-20 162.56 cm [facility] 16:33:00 Temperature Oral 2018-05-20 98.3 F [facility] Oniel rmann (F) 16:33:00 Heart Rate 2018-05-20 [facility] Bony n 16:33:00 Systolic (mm Hg) 2018-05-20 [facility] 16:33:00 Diastolic (mm Hg) 2018-05-20 [facility] Molly ermann 16:33:00 Systolic (mm Hg) 2018-04-24 [facility] 13:40:00 Diastolic (mm Hg) 2018-04-24 [facility] Molly ermann 13:40:00 Heart Rate 2018-04-24 Leonides Ortizan n 13:40:00 Temperature Oral 2018-04-24 98.0 F [facility] Oniel rmann (F) 13:40:00 Height 2018-04-24 162.56 cm [facility] 13:40:00 Weight 2018-04-24 Leon[facility] Ortizan n 13:40:00 BMI Calculated 2018-04-24 [facility] 13:40:00 BP Systolic 2018-04-01 134 mm[Hg] [facility]: L[facility]; [facility] 08:32:00 Position: Sitting BP Diastolic 2018-04-01 81 mm[Hg] Location: [place]; [facility] 08:32:00 Position: Sitting Height 2018-04-01 64 [in_us] [facility] 08:32:00 Weight 2018-04-01 164 [lb_av] [facility] 08:32:00 Body Mass Index 2018-04-01 28.15 kg/m2 [facility] Calculated 08:32:00 Heart Rate 2018-04-01 63 /min [facility] 08:32:00 BP Systolic 2018-03-06 125 mm[Hg] Location: [place]; [facility] 09:12:00 Position: Sitting BP Diastolic 2018-03-06 79 mm[Hg] Location: LUE; [facility] 09:12:00 Position: Sitting Height 2018-03-06 64 [in_us] [facility] 09:12:00 Weight 2018-03-06 164 [lb_av] [facility] 09:12:00 Body Mass Index 2018-03-06 28.15 kg/m2 [facility] Calculated 09:12:00 Heart Rate 2018-03-06 68 /min [facility] 09:12:00 BP Systolic 2018-02-24 129 mm[Hg] [facility]: LUE; [facility] 15:20:00 Position: Sitting BP Diastolic 2018-02-24 78 mm[Hg] [facility]: [facility]; [facility] 15:20:00 Position: Sitting Height 2018-02-24 64 [in_us] [facility] 15:20:00 Weight 2018-02-24 165 [lb_av] [facility] 15:20:00 Body Mass Index 2018-02-24 28.32 kg/m2 [facility] Calculated 15:20:00 Heart Rate 2018-02-24 63 /min [facility] 15:20:00 BP Systolic 2018-02-13 116 mm[Hg] [facility]: LUE; [facility] 09:26:00 Position: Sitting BP Diastolic 2018-02-13 74 mm[Hg] [facility]: [facility]; [facility] 09:26:00 Position: Sitting Heart Rate 2018-02-13 65 /min [facility] 09:26:00 Height 2018-02-13 64 [in_us] [facility] 09:26:00 Weight 2018-02-13 163 [lb_av] [facility] 09:26:00 Body Mass Index 2018-02-13 27.98 kg/m2 [facility] Calculated 09:26:00 BMI Calculated 2018-02-10 [facility] 14:23:00 Weight 2018-02-10 [facility] 14:23:00 Height 2018-02-10 162.56 cm [facility] 14:23:00 Heart Rate 2018-02-10 [facility] 14:23:00 Temperature Oral 2018-02-10 97.8 F [facility] (F) 14:23:00 Systolic (mm Hg) 2018-02-10 [facility] 14:23:00 Diastolic (mm Hg) 2018-02-10 [facility] 14:23:00 Weight 2018-02-05 [facility] 14:42:00 BMI Calculated 2018-02-05 Leonides Ortiz tracee 14:42:00 Systolic (mm Hg) 2018-02-05 Leonides Engle rmann 14:42:00 Diastolic (mm Hg) 2018-02-05 Leonides Barnes ermann 14:42:00 Height 2018-02-05 162.56 cm [facility] Lovett n 14:42:00 Temperature Oral 2018-02-05 98.2 F Leon[facility] Engle rmann (F) 14:42:00 Heart Rate 2018-02-05 Leonides Lovett n 14:42:00 BP Systolic 2018-01-24 122 mm[Hg] [facility]: [facility]; [facility] 08:22:00 Position: Sitting BP Diastolic 2018-01-24 70 mm[Hg] [facility]: L[facility]; [facility] 08:22:00 Position: Sitting Height 2018-01-24 64 [in_us] [facility] 08:22:00 Weight 2018-01-24 165 [lb_av] [facility] 08:22:00 Body Mass Index 2018-01-24 28.32 kg/m2 [facility] Calculated 08:22:00 Heart Rate 2018-01-24 68 /min [facility] 08:22:00 BP Systolic 2018-01-15 133 mm[Hg] [facility]: LUE; [facility] 13:44:00 Position: Sitting BP Diastolic 2018-01-15 83 mm[Hg] [facility]: LUE; [facility] 13:44:00 Position: Sitting Height 2018-01-15 64 [in_us] [facility] 13:44:00 Weight 2018-01-15 167 [lb_av] [facility] 13:44:00 Body Mass Index 2018-01-15 28.67 kg/m2 [facility] Calculated 13:44:00 Heart Rate 2018-01-15 58 /min [facility] 13:44:00 BP Systolic 2017-12-30 114 mm[Hg] [facility]: LUE; [facility] 10:36:00 Position: Sitting BP Diastolic 2017-12-30 69 mm[Hg] [facility]; [facility] 10:36:00 Position: Sitting Height 2017-12-30 64 [in_us] [facility] 10:36:00 Weight 2017-12-30 170 [lb_av] [facility] 10:36:00 Body Mass Index 2017-12-30 29.18 kg/m2 [facility] Calculated 10:36:00 Heart Rate 2017-12-30 73 /min [facility] 10:36:00 BP Systolic 2017-12-18 119 mm[Hg] [facility]: LUE; [facility] 13:41:00 Position: Sitting BP Diastolic 2017-12-18 74 mm[Hg] [facility]: LUE; [facility] 13:41:00 Position: Sitting Height 2017-12-18 64 [in_us] [facility] 13:41:00 Weight 2017-12-18 170 [lb_av] [facility] 13:41:00 Body Mass Index 2017-12-18 29.18 kg/m2 [facility] Calculated 13:41:00 Heart Rate 2017-12-18 63 /min [facility] 13:41:00 Height 2017-11-26 162.56 cm [facility] 13:52:00 BMI Calculated 2017-11-26 [facility] 13:52:00 Weight 2017-11-26 [facility] 13:52:00 Temperature Oral 2017-11-26 98.1 F [facility] (F) 13:52:00 Heart Rate 2017-11-26 [facility] 13:52:00 Systolic (mm Hg) 2017-11-26 [facility] 13:52:00 Diastolic (mm Hg) 2017-11-26 [facility] 13:52:00 BMI Calculated 2017-11-06 [facility] 13:51:00 Weight 2017-11-06 [facility] 13:51:00 Height 2017-11-06 162.56 cm [facility] 13:51:00 Temperature Oral 2017-11-06 98.1 F [facility] (F) 13:51:00 Heart Rate 2017-11-06 [facility] 13:51:00 Systolic (mm Hg) 2017-11-06 [facility] 13:51:00 Diastolic (mm Hg) 2017-11-06 [facility] 13:51:00 BP Systolic 2017-10-08 118 mm[Hg] [facility]: LUE; [facility] 08:35:00 Position: Sitting BP Diastolic 2017-10-08 83 mm[Hg] [facility]: [facility]; [facility] 08:35:00 Position: Sitting Height 2017-10-08 64 [in_us] [facility] 08:35:00 Weight 2017-10-08 179 [lb_av] [facility] 08:35:00 Body Mass Index 2017-10-08 30.73 kg/m2 [facility] Calculated 08:35:00 Heart Rate 2017-10-08 74 /min [facility] 08:35:00 Weight 2017-08-19 [facility] 14:15:00 BMI Calculated 2017-08-19 [facility] 14:15:00 Heart Rate 2017-08-19 [facility] 14:15:00 Temperature Oral 2017-08-19 98.5 F [facility] (F) 14:15:00 Height 2017-08-19 162.56 cm [facility] 14:15:00 Systolic (mm Hg) 2017-08-19 [facility] 14:15:00 Diastolic (mm Hg) 2017-08-19 [facility] 14:15:00 Height 2017-08-06 162.56 cm [facility] 13:05:00 BMI Calculated 2017-08-06 [facility] 13:05:00 Weight 2017-08-06 [facility] 13:05:00 Temperature Oral 2017-08-06 98.2 F [facility] (F) 13:05:00 Systolic (mm Hg) 2017-08-06 [facility] 13:05:00 Diastolic (mm Hg) 2017-08-06 [facility] 13:05:00 Heart Rate 2017-08-06 [facility] 13:05:00 BMI Calculated 2017-06-18 [facility] 16:05:00 Height 2017-06-18 162.56 cm [facility] 16:05:00 Heart Rate 2017-06-18 [facility] 16:05:00 Temperature Oral 2017-06-18 98.3 F [facility] (F) 16:05:00 Weight 2017-06-18 [facility] 16:05:00 Systolic (mm Hg) 2017-06-18 [facility] 16:05:00 Diastolic (mm Hg) 2017-06-18 [facility] 16:05:00 Systolic (mm Hg) 2017-05-21 [facility] 22:21:00 Diastolic (mm Hg) 2017-05-21 [facility] 22:21:00 Height 2017-05-21 162.56 cm [facility] 22:21:00 Temperature Oral 2017-05-21 97.8 F [facility] (F) 22:21:00 Heart Rate 2017-05-21 [facility] 22:21:00 Respitory Rate 2017-05-21 [facility] 22:21:00 Weight 2017-05-21 [facility] 22:21:00 BMI Calculated 2017-05-21 [facility] 22:21:00 BMI Calculated 2017-04-15 [facility] 14:20:00 Weight 2017-04-15 [facility] 14:20:00 Height 2017-04-15 162.56 cm [facility] 14:20:00 Heart Rate 2017-04-15 [facility] 14:20:00 Temperature Oral 2017-04-15 98.0 F [facility] (F) 14:20:00 Systolic (mm Hg) 2017-04-15 [facility] 14:20:00 Diastolic (mm Hg) 2017-04-15 [facility] 14:20:00 Height 2017-01-29 162.56 cm [facility] 15:19:00 Weight 2017-01-29 [facility] 15:19:00 BMI Calculated 2017-01-29 [facility] 15:19:00 Temperature Oral 2017-01-29 97.7 F [facility] (F) 15:19:00 Systolic (mm Hg) 2017-01-29 [facility] 15:19:00 Diastolic (mm Hg) 2017-01-29 [facility] 15:19:00 Heart Rate 2017-01-29 [facility] 15:19:00 Respitory Rate 2016-12-13 [facility] 13:15:00 Systolic (mm Hg) 2016-12-13 [facility] 13:15:00 Diastolic (mm Hg) 2016-12-13 [facility] 13:15:00 Systolic (mm Hg) 2016-12-13 [facility] 13:00:00 Diastolic (mm Hg) 2016-12-13 [facility] 13:00:00 Respitory Rate 2016-12-13 [facility] 13:00:00 Respitory Rate 2016-12-13 [facility] 12:45:00 Systolic (mm Hg) 2016-12-13 [facility] 12:45:00 Diastolic (mm Hg) 2016-12-13 [facility] 12:45:00 BMI Calculated 2016-12-12 [facility] 16:41:00 Weight 2016-12-12 [facility] 16:41:00 Height 2016-12-12 162.56 cm Leonides Lovett n 16:41:00 Procedures Procedure Date / Time Performing Clinician Source Performed [facility] PATIENT FINANCIAL 2022-08-23 19:42:00 Doctor Unassigned, No [facility] POLICY Name [facility] [place] TIME OR 2022-05-03 14:40:00 Eliel Gee [facility] (NON-REPORTABLE) [facility] [place] OR 2022-05-03 14:40:00 Eliel Gee [facility] (NON-REPORTABLE) [facility] MAJOR JOINT INJECTION 2022-05-03 14:06:00 Eliel Gee [facility] CONSENT/REFUSAL FOR 2022-05-03 12:55:43 [facility] Name [facility] [place] CONSENT/REFUSAL FOR 2022-05-03 12:55:43 [facility] [place] ASSIGNMENT OF BENEFITS 2022-05-03 12:54:41 Doctor Unassigned, No [facility] ASSIGNMENT OF BENEFITS 2022-05-03 12:54:41 Doctor Unassigned, No [facility] DAY SURGERY - VICTORY 2022-05-03 06:01:00 Doctor Unassigned, No [facility] XR KNEE 3 VW LEFT 2022-04-25 19:10:[address] [facility] XR HIPS 2 VW LEFT 2022-04-25 19:10:[address] [facility] ASSIGNMENT OF BENEFITS 2022-04-25 18:49:01 Doctor Unassigned, No [facility] DISCLOSURE AND CONSENT, 2022-04-25 06:01:00 Doctor Unassigned, N o [facility] MEDICAL AND SURGICAL [facility] PROCEDURES Colonoscopy 2018-12-09 05:00:00 Leonides Hu/Ncv 2018-02-24 00:00:00 [facility]] XRAY SPINE 2017-08-28 00:00:00 [facility] LUMBOSACRAL 2 OR 3 [id number] [id number] Colonoscopy<sup>1</sup> 2016-12-13 05:00:00 Sammy Rivera PAP smear preparation 2016-09-15 05:00:00 Milind Traylor Mammogram 2016-09-15 05:00:00 Leonides wu Rhinoplasty [facility] Miguel Breast Leonides Rivera augmentation<sup>2</sup > section Leonides guerrier Plan of Care Planned Activity Planned Date Details Comments Source Future Scheduled Test 2021 Imm Pneumococcal 65+ (1 [facility] 00:00:00 - PCV) [code = Imm Pneumococcal 65+ (1 - PCV)] Diagnostic Test 2018-02-24 Emg/Ncv [code = [facility]:00 Emg/Ncv] Diagnostic Test 2018-02-24 Emg/Ncv [code = [facility] 00:00:00 Emg/Ncv] Future Scheduled Test 2016-04-11 Breast Cancer Scrn [facility] 00:00:00 (Yearly) [code = Breast Cancer Scrn (Yearly)] Future Scheduled Test 2014-06-01 Screening for malignant [facility] 00:00:00 neoplasm of colon (procedure) [code = 489432648] Future Scheduled Test 1957-[birth year]-09 COVID-19 Vaccine (#1) [facility] 00:00:00 [code = COVID-19 Vaccine (#1)] Encounters Start End Encounter Admission Attending Care Care Encounter Source Date/Time Date/Time Type Type Clinicians Facility Department ID 2022-05-01 Outpatient [facility] [id number] [place] 08:25:42 [id number] [facility] 2022-04-27 Outpatient [facility] [id number] [place] 08:45:05 [id number] [facility] 2021-10-25 Outpatient [facility] [id number] [place] 13:28:34 [id number] [facility] 2021-01-17 Outpatient [facility] [id number] Univers 03:55:18 ELIEL valdes [facility] 2021-01-15 Outpatient R [facility] [id number] Univers 22:26:58 ELIEL valdes [facility] 2021-01-15 Emergency [facility] [id number] [facility] R [facility] [id number] Univers 15:01:13 ELIEL valdes [facility] 2021-01-13 Outpatient MARLEN [facility] [id number] Univers 19:46:29 ELIEL diane [facility] 2021-01-13 [facility] [id number] Univers 06:26:47 ELIEL diane [facility] 2021-01-13 [id number] Univers 06:01:39 ELIEL diane [facility] 2021-01-12 [facility] [id number] Univers 15:26:27 ELIEL [facility] 2022-08-09 2022-09-08 OP Therapy [facility] [place] [id number] Memoria 13:47:00 04:59:00 Patients [facility] l Miguel 2022-08-09 2022 Outpatient Jaiden, [id number] 08:47:00 23:59:00 Sam [id number] 2022-08-23 2022-08-23 [facility] [id number] Univers 14:40:00 16:04:27 GIANCARLO valdes o [facility] 2022-08-23 2022-08-23 [facility] [id number] Univers 14:40:00 15:00:00 Visit Giancarlo QUEZADA [id number] [place]y [id number] [id number] [place] dical NAL 059 [facility] 2022-08-23 2022-08-23 Orders Doctor SOFYA [id number] Univers 00:00:00 00:00:00 Only Unassigned, ZACKARY [id number] ity of [place] [facility] [id number] Fermin as [id number] [facility] 009 Branch 2022-06-29 2022-06-29 Ambulatory [facility] [id number] Memoria 13:15:00 13:15:00 Pre-Reg Primary [facility] l Care [place] 2022-06-29 2022-06-29 Ambulatory [facility] [id number] Memoria 13:15:00 13:15:00 Pre-Reg Primary 44 l Care [place] alas 2022-06-29 2022-06-29 Outpatient Ahsan [facility] [id number] 08:15:00 08:15:00 Zach Alarcon 2022-06-14 2022-06-14 Telephone [facility] [id number] Univers 00:00:00 00:00:00 Eliel Salas SPECIALTY [id number] ity of CARE [id number] [facility] ALLISON AT [id number] Il yasmineginette BIRD 198 [facility] 2022-06-13 2022-06-13 Outpatient [facility] [id number] Univers 10:10:00 10:10:00 ELIEL [facility] 2022-05-24 2022-05-24 Outpatient R ALIHILLOUR [facility] [id number] Univers 08:15:00 08:15:00 , DARRION [facility] 2022-05-03 2022-05-03 [facility] [id number] Univers 06:54:00 09:01:00 ELIEL [facility] 2022-05-03 2022-05-[address] [facility] [id number] Univers 06:54:00 09:01:00 Encounter Eliel Salas [facility] [id number] ity of [place] [id number] [facility] [id number] [address] ([facility]) 2022-05-03 2022-05-03 Surgery [facility] [id number] Univers 08:19:00 08:56:00 Eliel Salas SPECIALTY [id number] ity of CARE [id number] [facility] CENTER AT [id number] Il marcos MICHAELDiane 020 [facility] 2022-04-25 2022-04-[address] [facility] [id number] Univers 12:59:08 23:59:00 Encounter Eliel W SPECIALTY [id number] [id number] [id number] Il marcos BIRD 809 [facility] 2022-04-25 2022-04-25 Outpatient [facility] [id number] Univers 13:10:00 13:38:53 ELIEL ity of [facility] 2022-04-25 2022-04-25 Office [facility] [id number] Univers 13:10:00 13:38:53 Visit Eliel W SPECIALTY [id number] [id number] [id number] Il marcos BIRD 198 [facility] 2022-04-25 2022-04-25 Hospital [facility] [id number] [facility] 12:58:58 12:58:58 Encounter Eliel W SPECIALTY [id number] [id number] [facility] [phone] [place] marcos BIRD 809 [facility] 2022-04-25 2022-04-25 Orders Doctor SOFYA [id number] [id number] [facility] 00:00:00 00:00:00 Only Unassigned, ZACKARY [id number] ity of [facility] 4.2.7.2.686 [place] as [id number] [address] 2022-04-20 2022-04-20 Telephone [facility] 1.2.262.182 [id number] Univers 00:00:00 00:00:00 Eliel W SPECIALTY 350.1.13.10 [phone] Il marcos BIRD 198 [facility] 2022-03-22 2022-03-22 [facility] 1.2.840.114 [id number] Univers 14:53:30 23:59:00 Encounter , Darrion SPECIALTY 350.1.13.10 [place] [phone] Il marcos BIRD 809 [facility] 2022-03-22 2022-03-22 Outpatient R BASIM [facility] [id number] Univers 14:30:00 16:27:45 , DARRION ity [facility] 2022-03-22 2022-03-22 Office [facility] 1.2.840.114 [id number] [facility] 14:30:00 16:27:45 Visit , Darrion SPECIALTY 350.1.13.10 [place] [phone] Il marcos BIRD 198 [facility] 2022-03-22 2022-03-22 [facility] 1.2.840.114 [id number] Univers 14:39:09 14:52:00 Encounter , Darrion SPECIALTY 350.1.13.10 ity of CARE 4.2.7.2.686 [facility] [place] [facility] CENTER AT [phone] Il marcos BIRD 809 [facility] 2022-01-29 2022-01-30 Outpatient MHIE [facility] [id number] Memoria 20:30:00 05:59:59 Primary 43 l Care [facility] 2022-01-29 2022-01-30 Outpatient MHIE [facility] [id number] Memoria 20:30:00 05:59:59 Primary 43 l Care [facility] nn 2022-01-29 2022-01-29 Outpatient Ahsan [facility] [id number] 14:30:00 23:59:59 Zach 43 Dorian 2022-01-02 2022-01-02 Outpatient R MOISESBELLA [facility] [id number] Univers 16:30:00 16:30:00 , DARRION valdes [facility] 2021-12-27 2021-12-27 Outpatient Rocky MCINTOSH [facility] [id number] Univers 08:15:00 09:18:37 BOBBY valdes [facility] 2021-12-27 2021-12-27 Ancillary Behzad Fay [facility] 1.2.840 .114 [id number] Univers 08:15:00 09:18:37 Visit Bobby Mcintosh [facility] 350.1.13.10 ity of LEAGUE 4.2.7.2.686 [facility] [phone] [address] ([facility]) 2021-12-19 2021-12-19 Ancillary LuisaBehzad vines [facility] 1.2.840 .114 [id number] Univers 08:15:00 09:20:31 Visit ArnaldoDenverBobby Ana HEALTH 350.1.13.10 ity of LEAGUE 4.2.7.2.686 [facility] [id number] [address] ([facility]) 2021-11-27 2021-11-27 Outpatient FOG_Stocks_ AOSM AOSM [id number] Apple 00:00:00 00:00:00 Shelby [id number] Orth ope dic Sports Medicin e 2021-11-15 2021-11-15 Outpatient Rocky MCINTOSH [facility] [id number] Univers 07:30:00 07:30:00 BOBBY itdiane of [facility] 2021-11-15 2021-11-15 [facility] 1.2.840.114 [id number] [facility] 00:00:00 00:00:00 Management Behzad HEALTH 350.1.13.10 ity of LEAGUE 4.2.7.2.686 [facility] [phone] [address] ([facility]) 2021-11-01 2021-11-01 Ancillary Nya Behzad [facility] 1.2.840 .114 [id number] Univers 13:15:00 14:36:37 Visit Arnaldo Bobby Ana HEALTH 350.1.13.10 ity of LEAGUE 4.2.7.2.686 [facility] [id number] [address] ([facility]) 2021-10-19 2021-10-21 Phone nullFlavo [facility] [id number] Memoria 19:04:32 04:59:59 Message r Primary 13 l Care Rooseveltchai Ortizana alas 2021-10-19 2021-10-21 Phone nullFlavo [facility] [id number] Memoria 19:04:32 04:59:59 Message r Primary 13 l Care [facility] alas 2021-10-19 2021-10-20 Outpatient [facility] [id number] 14:04:32 23:59:59 13 2021-10-19 2021-10-19 Outpatient R BASIM [facility] [id number] Univers 11:00:00 13:21:24 , [facility] 2021-10-19 2021-10-19 Ancillary Clinic, Pt/Ortho Walk In [facility] 1.2.840.114 [id number] Univers 11:00:00 13:21:24 Visit Basim Darrion [facility] 350.1.13.10 ity of LEAGUE 4.2.7.2.686 [facility] [id number] [address] ([facility]) 2021-10-19 2021-10-19 Outpatient R BASIM [facility] [id number] Univers 10:30:00 10:30:00 , [facility] 2021-10-19 2021-10-19 [facility] 1.2.840.114 [id number] Univers 10:30:00 10:30:00 Visit , [facility] 350.1.13.10 ity of CARE 4.2.7.2.686 [facility] AT [phone] [address] 2021-10-19 2021-10-19 Outpatient R BASIM [facility] [id number] Univers 10:30:00 09:51:29 , DARRION [facility] 2021-10-12 2021-10-12 [facility] [id number] Univers 06:40:00 08:28:00 [facility] 2021-10-12 2021-10-12 Hospital [facility] 1.2.840.114 [id number] Univers 06:40:00 08:28:00 Encounter Eliel Salas [facility] 350.1.13.10 ity of LEAGUE 4.2.7.2.686 [facility] [phone] [address] ([facility]) 2021-10-12 2021-10-12 Surgery [facility] 1.2.840.114 [id number] Univers 07:46:00 08:01:00 Eliel Salas SPECIALTY 350.1.13.10 [place] [phone] Il marcos BIRD 020 [facility] 2021-10-12 2021-10-12 Orders Doctor SOFYA 1.2.840.114 [id number] Univers 00:00:00 00:00:00 Only Unassigned, ZACKARY 350.1.13.10 ity of [place] [facility] 4.2.7.2.686 Fermin as [phone] [facility] [address] [place] 2021-10-09 2021-10-09 Laboratory Only, Adc Test [facility] 1.2.840. 114 [id number] Univers 16:00:00 16:15:00 Only Eliel Guzmán 350.1.13.10 it[place] of [place] [id number] [facility] [address] [place] 2021-10-09 2021-10-09 Outpatient R CURRY [facility] [id number] Univers 16:00:00 16:00:00 ELIEL valdes [facility] 2021-10-04 2021-10-05 Outpatient nullFlavo [facility] [id number] Memoria 13:15:00 04:59:59 r Primary 42 l Care [facility] 2021-10-04 2021-10-05 Outpatient nullFlavo [facility] [id number] Memoria 13:15:00 04:59:59 r Primary 42 l Care [facility] 2021-10-04 2021-10-04 Outpatient Pam [facility] [id number] 08:15:00 23:59:59 Jose Ismael 42 2021-10-02 2021-10-02 [facility]phone [facility] 1.2.096.711 [id number] Univers 00:00:00 00:00:00 Eliel Salas SPECIALTY 350.1.13.10 [place] C[place] [phone] Il marcos BIRD 198 [facility] 2021-09-24 2021-09-24 Outpatient R BASIM [facility] [id number] Univers 09:24:13 23:59:00 , [facility] 2021-09-24 2021-09-24 Hospital [facility] 1.2.840.114 [id number] Univers 09:24:13 23:59:00 Encounter , Darrion SPECIALTY 350.1.13.10 ity of CARE 4.2.7.2.686 [facility] AT [phone] Il marcos BIRD 4 [facility] 2021-09-21 2021-09-21 Outpatient R BASIM [facility] [id number] Univers 16:30:00 16:30:00 , [facility] 2021-08-28 2021-08-28 Office [facility] 1.2.840.114 [id number] Univers 09:00:00 16:56:02 Visit Elza RICKS 350.1.13.10 ity of IALTY 4.2.7.2.686 [facility] [phone] [address] DI[facility]ES [facility]INIC 2021-08-28 2021-08-28 Outpatient R PAUL [facility] [id number] Univers 09:00:00 16:56:02 [facility] 2021-08-28 2021-08-28 Outpatient R PAUL [facility] [id number] Univers 09:00:00 16:56:02 ELZA [facility] 2021-08-28 2021-08-28 Outpatient R PAUL [facility] [id number] Univers 09:00:00 09:00:00 [facility] 2021-08-24 2021-08-24 Outpatient R BASIM [facility] [id number] Univers 00:00:00 00:00:00 , [facility] 2021-08-24 2021-08-24 Outpatient R BASIM [facility] [id number] Univers 00:00:00 00:00:00 , [facility] 2021-08-17 2021-08-18 Outpatient nullFlavo [facility] [id number] Memoria 14:00:00 04:59:59 r Primary 41 l Care [facility] [place] nn 2021-08-17 2021-08-18 Outpatient Lorenza [facility] [id number] Memoria 14:00:00 04:59:59 r Primary 41 l Care [facility] [place] nn 2021-08-17 2021-08-17 Outpatient KYLE Orozco [facility] [id number] 09:00:00 23:59:59 Jose Ismael 41 2021-08-17 2021-08-17 Refill LambertROOSEVELT ahn 1.2.840.114 [id number] Univers 00:00:00 00:00:00 Tamera Anand PEDIATRIC 350.1.13.10 [place] [id number] [facility] PRIMARY [address] CARE CLINIC 2021-08-10 2021-08-10 [facility] 1.2.840.114 [id number] Univers 12:50:00 23:59:00 Encounter , Darr[place] SPECIALTY 350.1.13.10 it[place].2.[place] [id number] Il marcos RODRIGUEZY [address] [place] 2021-08-10 2021-08-10 Outpatient R BASIM [facility] [id number] Univers 12:45:00 14:21:58 , DARRION ity [facility] 2021-08-10 2021-08-10 Office [facility] 1.2.840.114 [id number] Univers 12:45:00 14:21:58 Visit , Darrion SPECIALTY 350.1.13.10 it[place] [phone] Il marcos BIRD [address] [place] 2021-08-10 2021-08-10 [facility] [id number] Univers 12:45:00 14:21:58 , DARRION ity [facility] 2021-08-10 2021-08-10 [facility] [id number] Univers 12:45:00 14:21:58 , DARRION ity [facility] 2021-08-10 2021-08-10 Outpatient R EDILBERTOCTARINA [facility] [id number] Univers 12:45:00 12:45:00 , DARRION valdes [facility] 2021-08-09 2021-08-09 Outpatient Rocky GEE [facility] [id number] Univers 12:40:00 13:39:44 ELIEL lucio [facility] 2021-08-09 2021-08-09 Office Marlen [facility] 1.2.840.114 [id number] Univers 12:40:00 13:39:44 Visit Eliel Salas SPECIALTY 350.1.13.10 it[place] C[place].2.[place] [id number] Il marcos DENVERDiane [address] [place] [address] 2021-08-09 2021-08-09 Outpatient Rocky GEE [facility] [id number] Univers 12:40:00 13:39:44 ELIEL valdes [facility] 2021-08-09 2021-08-09 Outpatient Rocky GEE [facility] [id number] Univers 12:40:00 13:39:44 ELIEL valdes [facility] 2021-08-09 2021-08-09 Outpatient Rocky GEE [facility] [id number] Univers 12:40:00 13:39:44 ELIEL valdes [facility] 2021-08-09 2021-08-09 Outpatient Rocky GEE [facility] [id number] Univers 12:40:00 12:40:00 ELIEL valdes [facility] 2021-08-06 2021-08-06 Outpatient R LAMBERT [facility] [id number] Univers 20:45:00 21:08:12 TAMERA valdes o f [facility] 2021-08-06 2021-08-06 Urgent Tamera Verdin 1.2.840 .114 [id number] Univers 20:45:00 21:08:12 Care Unknown, Attending PEDIATRIC 350.1.13. 10 it[place] [id number] [address] 2021-07-21 2021-07-21 Outpatient Rocky FERREIRA [facility] [id number] Univers 09:00:00 09:59:40 SINGH valdes [facility] 2021-07-21 2021-07-21 Office [facility] 1.2.840.114 [id number] Univers 09:00:00 09:59:40 Visit Singh Hidalgo MULTISPEC 350.1.13.10 ity of IALTY 4.2.7.2.686 [facility] s ALLISON [id number] [address] DIABETES CLINIC 2021-07-19 2021-07-19 Leeanna Faulkner Nurse Visit [facility] 1.2.840.114 [id number] Univers 09:00:00 09:30:00 Visit Eliel Mason MULTISPEC 350.1.1 3.10 ity of IALTY 4.2.7.2.686 [facility] ALLISON [id number] [address] DIABETES CLINIC 2021-07-19 2021-07-19 [id number] Univers 09:00:00 09:00:00 ELIEL valdes [facility] 2021-07-17 2021-07-17 Outpatient Rocky [facility] [id number] Univers 09:00:00 17:44:33 SINGH valdes [facility] 2021-07-17 2021-07-17 Leeanna Faulkner Nurse Visit [facility] 1.2.840.114 [id number] Univers 09:00:00 10:00:00 Visit Singh Ferreira MULTISPEC 350.1.13.1 0 ity of IALTY 4.2.7.2.686 [facility] s ALLISON [id number] [address] DIABETES CLINIC 2021-07-17 2021-07-17 Outpatient Rocky [facility] [id number] Univers 09:00:00 09:00:00 SINGH valdes [facility] 2021-07-06 2021-07-06 Outpatient Rocky [facility] SOR [id number] Univers 06:42:00 08:48:00 ELIEL valdes [facility] 2021-07-06 2021-07-06 [facility] 1.2.840.114 [id number] Univers 06:42:00 08:48:00 Encounter Eliel Salas HEALTH 350.1.13.10 ity of [place].[address] [facility] [phone] [address] ([facility]) 2021-07-06 2021-07-06 Surgery [facility] 1.2.840.114 [id number] Univers 07:40:00 07:55:00 Eliel W SPECIALTY 350.1.13.10 it[place] C[place].2.7.2.[place] [phone] Il marcos MICHAELDiane 020 [facility] 2021-07-06 2021-07-06 Orders Doctor SOFYA 1.2.840.114 [id number] Univers 00:00:00 00:00:00 Only Unassigned, ZACKARY 350.1.13.10 ity of [place] HOSPITAL 4.2.7.2.686 Fermin as [phone] [address] 2021-07-04 2021-07-04 Orders Doctor SOFYA 1.2.840.114 [id number] Univers 00:00:00 00:00:00 Only Unassigned, ZACKARY 350.1.13.10 ity of [place] HOSPITAL 4.2.7.2.686 Fermin as [id number] [address] 2021-06-16 2021-06-16 [facility] 1.2.840.114 [id number] Univers 00:00:00 00:00:00 Surgery Karlos SPECIALTY 350.1.13.10 it[place] C[place].2.[place] [id number] Il dicginette BIRD 198 [facility] 2021-06-14 2021-06-14 Telephone [facility] 1.2.730.700 [id number] Univers 00:00:00 00:00:00 Eliel W SPECIALTY 350.1.13.10 it[place] of C[place].2.[place].2.[place] [phone] Il dicginette RODRIGUEZY 198 [facility] 2021-05-22 2021-05-22 Outpatient R PAUL [facility] [id number] Univers 09:30:00 09:35:15 ELZA ity of [facility] 2021-05-22 2021-05-22 Office [facility] 1.2.840.114 [id number] Univers 09:30:00 09:35:15 Visit Elza [facility] 350.1.13.10 [facility] 4.2.7.2.686 Ana sevilla ALLISON [phone] [facility] AND [address] DIABETES CLINIC 2021-04-23 2021-04-24 Between nullFlavo [facility] [id number] Memoria 13:39:26 13:39:26 Visit r Primary 22 l Care [facility] 2021-04-23 2021-04-24 Between nullFlavo [facility] [id number] Memoria 13:39:26 13:39:26 Visit r Primary 22 l Care [facility] 2021-04-24 2021-04-24 Outpatient Rocky LOPEZ [facility] [id number] [facility] 09:00:00 09:00:00 [facility] 2021-04-23 2021-04-24 Outpatient [facility] [id number] 07:39:26 07:39:26 22 2021-04-21 2021-04-22 Between nullFlavo [facility] [id number] Memoria 15:33:18 15:33:18 Visit r Primary 21 l Care [facility] 2021-04-21 2021-04-22 Between nullFlavo [facility] [id number] Memoria 15:33:18 15:33:18 Visit r Primary 21 l Care [facility] 2021-04-21 2021-04-22 Outpatient [facility] [id number] 09:33:18 09:33:18 21 2021-04-19 2021-04-20 Outpatient nullFlavo [facility] [id number] Memoria 15:00:00 05:59:59 r Primary 40 l Care [facility] 2021-04-19 2021-04-20 Outpatient nullFlavo [facility] [id number] Memoria 15:00:00 05:59:59 r Primary 40 l Care [facility] 2021-04-19 2021-04-19 Outpatient Ahsan [facility] [id number] 09:00:00 23:59:59 Zach 40 Dorian 2021-04-10 2021-04-10 Outpatient [facility] [id number] [place] 00:00:00 00:00:[address] 2021-04-05 2021-04-05 Outpatient [facility] [id number] [place] 00:00:00 00:00:[address] 2021-03-28 2021-03-28 [facility] [id number] Univers 06:24:00 10:35:00 ELIEL ity of [facility] 2021-03-28 2021-03-[address] [facility] 1.2.840.114 [id number] Univers 06:24:00 10:35:00 Encounter Eliel Salas [facility] 350.1.13.10 ity of [place]7.[place].[address] [facility] [phone] [address] ([facility]) 2021-03-28 2021-03-28 Surgery [facility] 1.2.840.114 [id number] Univers 09:50:00 10:05:00 Eliel Salas SPECIALTY 350.1.13.10 it[place] C[place].2.7.2.[place] [phone] Il dicginette BIRD 020 [facility] 2021-03-28 2021-03-28 Orders Doctor SOFYA 1.2.840.114 [id number] Univers 00:00:00 00:00:00 Only Unassigned, ZACKARY 350.1.13.10 ity of [place] [facility] 4.2.7.2.686 Fermin as [phone] [facility] [address] [place] 2021-03-27 2021-03-27 Telephone [facility] 1.2.495.501 [id number] Univers 00:00:00 00:00:00 Eliel Salas SPECIALTY 350.1.13.10 it[place] of C[place].2.[place] [phone] Il dicginette RODRIGUEZY 072 [facility] 2021-03-25 2021-03-25 Laboratory Only, Adc Test [facility] 1.2.840. 114 [id number] Univers 08:00:00 08:15:00 Only Eliel Gee 350.1.13.10 ity of [place] 4.2.7.2.686 [facility] [id number] [facility] [address] 2021-03-25 2021-03-25 Outpatient R MARLEN [facility] [id number] Univers 08:00:00 08:00:00 ELIEL valdes [facility] 2021-02-28 2021-02-28 Missael Gee [facility] 1.2.339.748 [id number] Univers 00:00:00 00:00:00 Eliel Salas [facility] 350.1.13.10 ity of [facility] 4.2.7.2.686 [facility] AT [phone] Il marcos DENVERDiane [address] [place] [address] 2021-02-08 2021-02-08 Press Box Custodian Dec-Lab [facility] 1.2.840.114 [id number] Univers 15:39:18 15:54:18 Visit Elza Miller 350.1.13.10 [facility]y [facility] 4.2.7.2.686 [facility] [phone] [facility] [place] [address] DI[facility]ES [facility]INIC 2021-02-08 2021-02-08 Outpatient R PAUL [facility] [id number] Univers 15:45:00 15:45:00 ELZA valdes [facility] 2021-02-08 2021-02-08 Outpatient R PAUL [facility] [id number] Univers 15:00:00 15:44:33 ELZA valdes [facility] 2021-02-08 2021-02-08 Outpatient R PAUL [facility] [id number] Univers 15:00:00 15:44:33 ELZA valdes [facility] 2021-02-08 2021-02-08 Outpatient R PAUL [facility] [id number] Univers 15:00:00 15:44:33 ELZA valdes [facility] 2021-02-08 2021-02-08 Office Paul [facility] 1.2.840.114 [id number] Univers 14:30:59 15:44:33 Visit Elza MULTISPEC 350.1.13.10 ity of IALTY 4.2.7.2.686 [facility] [id number] [facility] [place] [address] DIABETES CLINIC 2021-02-08 2021-02-08 Outpatient R PAUL, [facility] [id number] Univers 15:00:00 15:00:00 ELZA ity [facility] 2021-01-17 2021-01-17 Outpatient R JESSICA, [facility] [id number] Univers 09:00:00 09:00:00 MAURI ity [facility] 2021-01-05 2021-01-05 Hospital [facility] 1.2.840.114 [id number] Univers 07:57:00 09:37:00 Encounter Eliel Salas [facility] 350.1.13.10 ity of [place] 4.2.7.2.686 [facility] [phone] [address] ([facility]) 2021-01-05 2021-01-05 Surgery [facility] 1.2.840.114 [id number] Univers 08:38:00 08:53:00 Eliel Salas SPECIALTY 350.1.13.10 ity of CARE 4.2.7.2.686 [facility] AT [phone] [facility] 020 [facility] 2021-01-05 2021-01-05 Orders Doctor SOFYA 1.2.840.114 [id number] Univers 00:00:00 00:00:00 Only Unassigned, ZACKARY 350.1.13.10 ity of [place] [facility] 4.2.7.2.686 Fermin [id number] [facility] [address] 2021-01-02 2021-01-02 Outpatient R [facility] [id number] Univers 16:30:00 16:30:00 ity of [facility] 2021-01-02 2021-01-02 Laboratory Only, Adc Test [facility] 1.2.840. 114 [id number] Univers 15:58:53 16:13:53 Only Eliel Gee 350.1.13.10 ity of [place] 4.2.7.2.686 [facility] [id number] [facility] [address] 2021-01-02 2021-01-02 Orders Doctor SOFYA 1.2.840.114 [id number] Univers 00:00:00 00:00:00 Only Unassigned, ZACKARY 350.1.13.10 ity of [place] [facility] 4.2.7.2.686 Fermin as [phone] [facility] [address] 2020-12-28 2020-12-28 Telephone [facility] 1.2.840.114 [id number] Univers 00:00:00 00:00:00 [facility] 350.1.13.10 [place] [id number] [address] DIABETES CLINIC 2020-12-23 2020-12-23 Telephone [facility] 1.2.884.749 [id number] Univers 00:00:00 00:00:00 Eliel MORGAN 350.1.13.10 it[place]2.[place] [phone] [address] 2020-12-22 2020-12-22 Telephone [facility] 1.2.840.114 [id number] Univers 00:00:00 00:00:00 [facility] 350.1.13.10 [place] [id number] [address] DIABETES CLINIC 2020-12-22 2020-12-22 Telephone [facility] 1.2.840.114 [id number] Univers 00:00:00 00:00:00 [facility] 350.1.13.10 [place] [id number] [address] DIABETES CLINIC 2020-12-21 2020-12-21 Outpatient JESSICA [facility] [id number] Univers 10:34:42 23:59:00 MAURI ity [facility] 2020-12-21 2020-12-21 [id number] Univers 10:34:42 23:59:00 [facility] 2020-12-21 2020-12-21 [facility] [id number] Univers 10:34:42 23:59:00 Encounter [facility] [id number] ity of IALTY [id number] [facility] [facility] [phone] [facility] [place] [address] [place] [facility] 2020-12-21 2020-12-21 Office [facility] [id number] Univers 09:47:05 12:56:44 Visit [facility] [id number] ity of [id number] [phone] [facility] [place] [address] [place] [facility] 2020-12-21 2020-12-21 Outpatient [facility] [id number] Univers 11:00:00 11:00:00 [facility] 2020-12-16 2020-12-16 Telephone [facility] [id number] Univers 00:00:00 00:00:00 [facility] [id number] ity of [place]AL[place] [id number] [phone] [facility] [address] [place] [facility] 2020-12-16 2020-12-16 [facility] [id number] Univers 00:00:00 00:00:00 Eliel MORGAN [id number] ity of CARE [id number] [facility] [place] ALL[place] AT [phone] [place] [address] 2020-12-15 2020-12-15 Laboratory Only, Adc Test [facility] 1.2.840. [id number] Univers 13:41:40 13:56:40 Only Eliel Guzmán [id number] ity of [place] 4.2.7.2.686 [facility] [phone] [facility] [address] 2020-12-15 2020-12-15 Outpatient R CURRY, [facility] [id number] Univers 13:00:00 13:00:00 ELIEL [facility] 2020-12-15 2020-12-15 Outpatient R [facility] [id number] Univers 08:00:00 08:00:00 [facility]-15 2020-12-15 Orders Doctor SOFYA 1.2.840.114 [id number] Univers 00:00:00 00:00:00 Only Unassigned, ZACKARY [id number] ity of [place] [facility] [id number] [facility] [phone] [facility] [address] 2020-12-05 2020-12-05 [facility] [id number] Univers 09:00:00 09:36:15 [facility] 2020-12-05 2020-12-05 Out[facility] [id number] Univers 09:00:00 09:36:15 [facility] 2020-12-05 2020-12-05 Office [facility] 1.2.840.114 [id number] Univers 08:53:47 09:36:15 Visit [facility] [id number] ity [facility] [id number] [facility] [phone] [address] [facility] 2020-12-05 2020-12-05 [facility] [id number] Univers 09:00:00 09:00:00 MAURI [facility] 2020-11-14 2020-11-16 Phone nullFlavo [facility] [id number] Memoria 16:59:59 04:59:59 Message r Primary 12 l Care [facility] 2020-11-14 2020-11-16 Phone nullFlavo [facility] [id number] Memoria 16:59:59 04:59:59 Message r Primary 12 l Care [facility] 2020-11-14 2020-11-15 Outpatient MHMG [facility] [id number] 11:59:59 23:59:59 12 2020-11-14 2020-11-15 [place] [id number] Memoria 19:45:00 04:59:59 r Primary 39 l Care [facility] 2020-11-14 2020-11-15 [place] [id number] Memoria 19:45:00 04:59:59 r Primary 39 l Care [facility] 2020-11-14 2020-11-14 Outpatient VISIT, MG MG [id number] 14:45:00 23:59:59 NURSE AVN 39 2020-11-09 2020-11-10 [place] [id number] Memoria 14:15:00 04:59:59 r Primary 38 l Care [facility] 2020-11-09 2020-11-10 [place] [id number] Memoria 14:15:00 04:59:59 r Primary 38 l Care [facility] 2020-11-09 2020-11-09 [facility] [id number] 09:15:00 23:59:59 Jose Ismael 38 2020-10-26 2020-10-26 Outpatient Rocky GEE [facility] [id number] [facility] 10:23:23 23:59:00 ELIEL valdes [facility] 2020-10-26 2020-10-26 Outpatient Rocky GEE [facility] [id number] [facility] 10:23:23 23:59:00 ELIEL valdes [facility] 2020-10-26 2020-10-26 [facility] 1.2.840.114 [id number] Univers 09:05:27 11:13:08 Visit Eliel [id number] [facility] [id number] [facility] AT [phone] [place] yasmine[address] 2020-10-26 2020-10-26 Outpatient Rocky GEE [facility] [id number] [facility] 09:10:00 09:10:00 ELIEL valdes [facility] 2020-10-03 2020-10-03 Orders Doctor SOFYA 1.2.840.114 [id number] Univers 00:00:00 00:00:00 Only Unassigned, ZACKARY [id number] ity of [facility] [id number] Fermin as [phone] [address] 2020-07-27 2020-07-29 Phone nullFlavo [facility] [id number] Memoria 22:03:14 04:59:59 Message r Primary 11 l Care [facility] 2020-07-27 2020-07-29 Phone nullFlavo [facility] [id number] Memoria 22:03:14 04:59:59 Message r Primary 11 l Care [facility] 2020-07-27 2020-07-28 Outpatient MHMG [facility] [id number] 17:03:14 23:59:59 11 2020-07-26 2020-07-27 [place] [id number] Memoria 19:00:00 04:59:59 r Primary 37 l Care [facility] 2020-07-26 2020-07-27 Outpatient nullFlavo [facility] [id number] Memoria 19:00:00 04:59:59 r Primary 37 l Care [facility] 2020-07-26 2020-07-26 Outpatient Orozco, MG [facility] [id number] 14:00:00 23:59:59 Jose Ismael 37 2020-07-12 2020-07-14 Phone nullFlavo MG [id number] Memoria 20:06:21 04:59:59 Message r Primary 10 l Care [facility] 2020-07-12 2020-07-14 Phone nullFlavo [facility] [id number] Memoria 20:06:21 04:59:59 Message r Primary 10 l Care [facility] 2020-07-12 2020-07-13 Outpatient MHMG [facility] [id number] 15:06:21 23:59:59 10 2020-07-12 2020-07-13 Outpatient nullFlavo [facility] [id number] Memoria 13:30:00 04:59:59 r Primary 36 l Care [facility] 2020-07-12 2020-07-13 Outpatient nullFlavo [facility] [id number] Memoria 13:30:00 04:59:59 r Primary 36 l Uriel alas 2020-07-12 2020-07-12 Outpatient Pam [facility] [id number] 08:30:00 23:59:59 Jose Ismael 36 2020-06-12 2020-06-12 Outpatient [facility] [id number] Univers 11:05:00 11:05:00 ity [facility] 2020-06-09 2020-06-09 Orders Doctor SOFYA 1.2.840.114 [id number] Univers 00:00:00 00:00:00 Only Unassigned, ZACKARY [id number] [facility] [id number] Fermin as [phone] [address] 2020-05-23 2020-05-24 Outpatient nullFlavo [facility] [id number] Memoria 15:30:00 05:59:59 r Primary 35 l U[facility] [place] 2020-05-23 2020-05-24 Outpatient nullFlavo [facility] [id number] Memoria 15:30:00 05:59:59 r Primary 35 l Care [facility] alas 2020-05-23 2020-05-23 Outpatient Pam [facility] [id number] 09:30:00 23:59:59 Jose Ismael 35 2020-05-16 2020-05-18 Outside nullFlavo [facility] [id number] Memoria 13:41:33 05:59:59 Medical r Primary 09 l Records Care [facility] 2020-05-16 2020-05-18 Outside nullFlavo [facility] [id number] Memoria 13:41:33 05:59:59 Medical r Primary 09 l Records Care [facility] 2020-05-16 2020-05-17 Outpatient [facility] [id number] 07:41:33 23:59:59 09 2020-05-15 2020-05-15 Outpatient [facility] [id number] Univers 11:05:00 11:05:00 ity [facility] 2020-03-282020-03-[address] [facility] 1.2.840.114 [id number] 07:20:00 09:24:00 Encounter Eliel Maritza [facility] [id number] League [id number] [facility] [phone] [address] ([facility]) 2020-03-23 2020-03-23 Laboratory Only, Research [facility] 1.2.840.114 [id number] 08:25:10 08:40:10 Only Test [place] [id number] Otilia [id number] [place] [phone] 353 2020-03-23 2020-03-23 Outpatient R [facility] [id number] Univers 08:30:00 08:30:00 ity [facility] 2020-02-25 2020-02-25 Telephone [facility] 1.2.030.882 [id number] 00:00:00 00:00:00 Eliel SPECIALTY [id number] CARE [id number] CENTER AT [phone] VICTORDiane [address] [facility] 2020-01-27 2020-01-[address] [facility] 1.2.840.114 [id number] 10:00:00 23:59:00 Encounter Eliel W SPECIALTY [id number] CARE [id number] CENTER AT [phone] PELON 809 [facility] 2020-01-27 2020-01-27 [facility] 1.2.840.114 [id number] 09:46:03 11:07:28 Visit Eliel W SPECIALTY [id number] CARE [id number] CENTER AT [phone] MICHAELDiane [address] [facility] 2020-01-27 2020-01-27 Outpatient R [facility] [id number] Univers 09:30:00 09:30:00 ELIEL diane [facility] 2019-12-21 2019-12-21 Outpatient R [facility] [id number] Univers 08:15:00 08:15:00 [facility] 2019-12-16 2019-12-17 Outpatient nullFlavo [facility] [id number] Memoria 13:45:00 04:59:59 r Primary 34 l Care [facility] nn 2019-12-16 2019-12-17 Outpatient nullFlavo [facility] [id number] Memoria 13:45:00 04:59:59 r Primary 34 l Care [facility] [place] nn 2019-12-16 2019-12-16 Outpatient Pam, [facility] [id number] 08:45:00 23:59:59 Jose Ismael 34 2019-12-15 2019-12-15 Ambulatory nullFlavo [facility] [id number] Memoria 20:15:00 20:15:00 Pre-Reg r Primary 33 l Care [facility] nn 2019-12-15 2019-12-15 Ambulatory nullFlavo [facility] [id number] Memoria 20:15:00 20:15:00 Pre-Reg r Primary 33 l Care [facility] [place] 2019-12-15 2019-12-15 Outpatient Daly, MH[facility] [id number] 15:15:00 15:15:00 Marissa 33 2019-12-15 2019-12-15 Appointmen DEBBIE MEADOWS [facility] [id number] [place] 10:00:00 10:00:00 t; HIMA MEADOWS M.D. lty - P hysici SABA, M.D. [facility] 2019-12-09 2019-12-09 Outpatient R MARLEN, [facility] [id number] [facility] 10:40:00 10:40:00 ELIEL [facility] 2019-11-10 2019-11-10 [facility]oint[id number] [place] 08:30:00 08:30:00 t; HIMA MEADOWS M.D. lty - P hysici SABA, M.D. [facility] [address] 2019-10-19 2019-10-19 Appointmen DEBBIE CONTRERAS [facility] [id number] [place] 09:30:00 09:30:00 t; LEIA CONTRERAS lty - Phys ici MICHELLE, M.D. [place] ans M.D. 2019-10-04 2019-10-04 Outpatient R ANTELMO, [facility] [id number] Univers 08:30:00 08:30:00 [facility] 2019-09-17 2019-09-17 Janessa MEADOWS [facility] Multispecia [id number] [place] 14:00:00 14:00:00 t; HIMA MEADOWS M.D. lty - P hysici SABA, M.D. [facility] 2019-09-16 2019-09-16 Outpatient R MARLEN [facility] [id number] Univers 10:50:00 10:50:00 ELIEL diane [facility] 2019-09-14 2019-09-14 Appointwilner MEADOWS [facility] [id number] [place] 14:30:00 14:30:00 t; HIMA MEADOWS M.D. P cassandra RABAGO M.D. [facility] 2019-08-18 2019-08-[address] [id number] [place] 08:00:00 08:00:00 t; HIMA MEADOWS M.D. lty - P hysici SABA, M.D. [facility] 2019-08-04 2019-08-05 Outpt Diag nullFlavo [facility] [id number] Memoria 15:54:00 04:59:00 Services r Outpatient 05 l Imaging [facility] 2019-08-04 2019-08-05 [place] [id number] Memoria 15:54:00 04:59:00 Services r Outpatient 05 l Imaging [facility] 2019-08-04 2019-08-04 Outpatient FAUSTINA Orozco OIP [id number] 10:54:00 23:59:00 Jose Ismael 05 2019-08-03 2019-08-04 Outpatient nullFlavo [facility] [id number] Memoria 19:15:00 04:59:59 r Primary 32 l Care [facility] 2019-08-03 2019-08-04 Outpatient nullFlavo [facility] [id number] Memoria 19:15:00 04:59:59 r Primary 32 l Care [facility] Christel 2019-08-03 2019-08-03 Outpatient KYLE Orozco [facility] [id number] 14:15:00 23:59:59 Jose Ismael 32 2019-07-30 2019-07-30 Outpatient R MARLEN [facility] [id number] Univers 05:55:00 08:15:00 ELIEL valdes [facility] 2019-07-29 2019-07-29 Outpatient R MARLEN [facility] [id number] Univers 08:00:00 08:00:00 ELIEL valdes [facility] 2019-07-28 2019-07-28 Ambulatory nullFlavo [facility] [id number] Memoria 21:15:00 21:15:00 Pre-Reg r Primary 31 l Care [facility] 2019-07-28 2019-07-28 Ambulatory nullFlavo [facility] [id number] Memoria 21:15:00 21:15:00 Pre-Reg r Primary 31 l Care [facility] 2019-07-28 2019-07-28 Outpatient Addy, MH[facility] [id number] 16:15:00 16:15:00 Marissa 31 2019-07-28 2019-07-28 AppointDEBBIE [id number] [place] 13:30:00 13:30:00 t; HIMA MEADOWS M.D. lty - P hysici SABA, M.D. [facility] 2019-07-16 2019-07-17 Outpatient nullFlavo [facility] [id number] Memoria 15:00:00 04:59:59 r Primary 30 l Care [facility] 2019-07-16 2019-07-17 Outpatient nullFlavo [facility] [id number] Memoria 15:00:00 04:59:59 r Primary 30 l Care [facility] 2019-07-16 2019-07-16 Outpatient Orozco, MG [facility] [id number] 10:00:00 23:59:59 Jose Ismael 30 2019-07-13 2019-07-13 Appointmen [id number] [place] 10:00:00 10:00:00 t; HIMA MEADOWS M.D. lty - P hysici SABA, M.D. [facility] 2019-07-02 2019-07-03 Outpatient nullFlavo [facility] [id number] Memoria 18:30:00 04:59:59 r Primary 29 l Care [facility] 2019-07-02 2019-07-03 Outpatient nullFlavo [facility] [id number] Memoria 18:30:00 04:59:59 r Primary 29 l [facility] [place] 2019-07-02 2019-07-02 Outpatient Pam, MH[facility] [id number] 13:30:00 23:59:59 Jose Ismael 29 2019-06-25 2019-06-27 Phone nullFlavo [facility] [id number] Memoria 19:18:43 04:59:59 Message r Primary 08 l [facility] [place] 2019-06-25 2019-06-27 Phone nullFlavo [facility] [id number] Memoria 19:18:43 04:59:59 Message r Primary 08 l [facility] [place] 2019-06-25 2019-06-26 Outpatient MHMG [facility] [id number] 14:18:43 23:59:59 08 2019-06-22 2019-06-24 Phone nullFlavo [facility] [id number] Memoria 18:32:09 04:59:59 Message r Primary 07 l [facility] [place] 2019-06-22 2019-06-24 Phone nullFlavo [facility] [id number] Memoria 18:32:09 04:59:59 Message r Primary 07 l [facility] [place] 2019-06-22 2019-06-23 Outpatient MHMG [facility] [id number] 13:32:09 23:59:59 2019-06-22 2019-06-23 Outpatient nullFlavo [facility] [id number] Memoria 16:15:00 04:59:59 r Primary 28 l [facility] [place] 2019-06-22 2019-06-23 Outpatient nullFlavo [facility] [id number] Memoria 16:15:00 04:59:59 r Primary 28 l [facility] [place] 2019-06-22 2019-06-22 Outpatient Pam, MH[facility] [id number] 11:15:00 23:59:59 Jose Ismael 28 2019-06-01 2019-06-02 Outpatient nullFlavo [facility] [id number] Memoria 13:00:00 04:59:59 r Primary 27 l [facility] [place] 2019-06-01 2019-06-02 Outpatient nullFlavo [facility] [id number] Memoria 13:00:00 04:59:59 r Primary 27 l [facility] [place] 2019-06-01 2019-06-01 Outpatient Orozco, MHMG [facility] [id number] 08:00:00 23:59:59 Jose Ismael 27 2019-05-20 2019-05-21 Outpatient nullFlavo [facility] [id number] Memoria 19:00:00 05:59:59 r Primary 26 l Care [facility] nn 2019-05-20 2019-05-21 Outpatient nullFlavo [facility] [id number] Memoria 19:00:00 05:59:59 r Primary 26 l Care [facility] nn 2019-05-20 2019-05-20 Outpatient JULIO OrozcoMG [facility] [id number] 13:00:00 23:59:59 Jose Ismael 2019-05-20 2019-05-20 Outpatient Rocky GEE [facility] [id number] Univers 10:20:00 10:20:00 ELIEL [facility] 2019-04-28 2019-04-28 AppointDEBBIE Mancia [facility] [id number] [place] 14:30:00 14:30:00 t; HIMA MEADOWS M.D. lty - P hysici SABA, M.D. [facility] 2019-02-23 2019-02-23 AppointDEBBIE Mancia [facility] [id number] [place] 14:00:00 14:00:00 t; HIMA MEADOWS M.D. lty - P hysici SABA, M.D. [facility] 2019-02-11 2019-02-12 Outpatient nullFlavo [facility] [id number] Memoria 14:45:00 05:59:59 r Primary 25 l Care [facility] 2019-02-11 2019-02-12 Outpatient nullFlavo [facility] [id number] Memoria 14:45:00 05:59:59 r Primary 25 l Care [facility] Christel 2019-02-11 2019-02-11 Outpatient JULIO OrozcoMG [facility] [id number] 08:45:00 23:59:59 Jose Ismael 2019-02-09 2019-02-09 Appointmen DEBBIE DOVE [facility] [id number] [place] 09:30:00 09:30:00 t; KAMILA DOVE, ysici [place] TREVIÑO. denise Rivera 2018-11-18 2018-11-19 Between nullFlavo [facility] [id number] Memoria 14:03:30 14:03:30 Visit r Primary 13 l [facility] [place] 2018-11-18 2018-11-19 Between nullFlavo [facility] [id number] Memoria 14:03:30 14:03:30 Visit r Primary 13 l U[facility] [place] 2018-11-18 2018-11-19 Outpatient MHMG [facility] [id number] 09:03:30 09:03:30 13 2018-10-23 2018-10-25 Phone nullFlavo [facility] [id number] Memoria 21:46:32 04:59:59 Message r Primary 06 l U[facility] [place] 2018-10-23 2018-10-25 Phone nullFlavo [facility] [id number] Memoria 21:46:32 04:59:59 Message r Primary 06 l U[facility] [place] 2018-10-23 2018-10-24 Outpatient MHMG [facility] [id number] 16:46:32 23:59:59 06 2018-10-15 2018-10-17 Phone nullFlavo MG [id number] Memoria 18:53:50 04:59:59 Message r Primary 05 l [facility] [place] 2018-10-15 2018-10-17 Phone nullFlavo [facility] [id number] Memoria 18:53:50 04:59:59 Message r Primary 05 l [facility] [place] 2018-10-15 2018-10-17 Phone nullFlavo MG [id number] Memoria 18:30:27 04:59:59 Message r Primary 04 l [facility] [place] 2018-10-15 2018-10-17 Phone nullFlavo MG [id number] Memoria 18:30:27 04:59:59 Message r Primary 04 l [facility] [place] 2018-10-15 2018-10-16 Outpatient MHMG [facility] [id number] 13:53:50 23:59:59 05 2018-10-15 2018-10-16 Outpatient MHMG [facility] [id number] 13:30:27 23:59:59 04 2018-10-15 2018-10-16 Outpatient nullFlavo [facility] [id number] Memoria 14:15:00 04:59:59 r Primary 24 l Care [facility] [place] nn 2018-10-15 2018-10-16 [place] [id number] Memoria 14:15:00 04:59:59 r Primary 24 l Care [facility] [place] nn 2018-10-15 2018-10-15 [place] [id number] 09:15:00 23:59:59 Jose Ismael 24 2018-09-23 2018-09-24 [place] [id number] Memoria 13:45:00 04:59:59 r Primary 23 l Care [facility] [place] nn 2018-09-23 2018-09-24 [place] [id number] Memoria 13:45:00 04:59:59 r Primary 23 l Care [facility] [place] 2018-09-23 2018-09-23 [place] [id number] 08:45:00 23:59:59 Jose Ismael 23 2018-09-15 2018-09-16 Between nullFlavo MG [id number] Memoria 22:55:17 22:55:17 Visit r Primary 09 l Care [facility] [place] nn 2018-09-15 2018-09-16 Between nullFlavo MG [id number] Memoria 22:55:17 22:55:17 Visit r Primary 09 l Care [facility] [place] 2018-09-15 2018-09-16 Outpatient MG MG [id number] 17:55:17 17:55:17 09 2018-08-07 2018-08-08 [place] [id number] Memoria 21:00:00 04:59:59 r Primary 22 l Care [facility] [place] 2018-08-07 2018-08-08 [place] [id number] Memoria 21:00:00 04:59:59 r Primary 22 l Care [facility] [place] 2018-08-07 2018-08-07 Outpatient Ahsan [facility] [id number] 16:00:00 23:59:59 Zach 22 [place] 2018-06-02 2018-06-02 [facility] DEBBIE DOVE [id number] [place] 08:15:00 08:15:00 t; KAMILA DOVE, Ph ysici Nicole TREVIÑO M.D. 2018-05-28 2018-05-29 Outpt Diag nullFlavo [facility] [id number] Memoria 13:13:00 04:59:00 Services r Outpatient 04 louis Dobson [facility] 2018-05-28 2018-05-29 Outpt Diag nullFlavo [facility] [id number] Memoria 13:13:00 04:59:00 Services r Outpatient 04 l Bronson [facility] 2018-05-28 2018-05-28 Outpatient Orozco, MHOIP MHOIP [id number] 08:13:00 23:59:00 Jose Ismael 04 2018-05-27 2018-05-27 Ambulatory nullFlavo [facility] [id number] Memoria 14:15:00 14:15:00 Pre-Reg r Primary 21 l Care [facility] 2018-05-27 2018-05-27 [place] [id number] Memoria 14:15:00 14:15:00 Pre-Reg r Primary 21 l Care [facility] 2018-05-27 2018-05-27 Outpatient Orozco, MG [facility] [id number] 09:15:00 09:15:00 Jose Ismael 21 2018-05-20 2018-05-21 Outpatient nullFlavo [facility] [id number] Memoria 16:30:00 05:59:59 r Primary 20 l U[facility] [place] 2018-05-20 2018-05-21 Outpatient nullFlavo [facility] [id number] Memoria 16:30:00 05:59:59 r Primary 20 l Care [facility] 2018-05-20 2018-05-20 Outpatient Orozco, MG [facility] [id number] 10:30:00 23:59:59 Jose Ismael 20 2018-04-24 2018-04-25 Outpatient nullFlavo [facility] [id number] Memoria 13:30:00 05:59:59 r Primary 19 l Care [facility] [place] 2018-04-24 2018-04-25 Outpatient nullFlavo [facility] [id number] Memoria 13:30:00 05:59:59 r Primary 19 l Care [facility] [place] 2018-04-24 2018-04-24 Outpatient Orozco, MH[facility] [id number] 07:30:00 23:59:59 Jose Ismael 19 2018-04-24 2018-04-24 Outpatient Pam [facility] [id number] 07:30:00 23:59:59 Jose Ismael 19 2018-04-24 2018-04-24 App[facility] [id number] [place] 10:00:00 10:00:00 t; WILBERT AVENDANO Physici SHAH-NAWAZ M.D. ans, M.D. 2018-04-01 2018-04-01 [facility] [id number] [place] 08:45:00 08:45:00 t; KAMILA DOVE Multi-Speci Physici MOUSTAFA, M.D. alty SuiteSuyapa sevilla M.D. 2018-03-06 2018-03-06 [facility] [id number] [place] 10:00:00 10:00:00 t; KAMILA DOVE Multi Ph pamela TREVIÑO M.D. Specialty denise Rivera 2018-02-24 2018-02-24 [facility] [id number] [place] 14:45:00 14:45:00 t; KAMILA DOVE Multi Ph ysici MOUSTAFA, M.D. Specialty denise Rivera 2018-02-13 2018-02-13 [facility] [id number] [place] 09:00:00 09:00:00 t; KAMILA DOVE Multi Ph pamela TREVIÑO M.D. Specialty denise Rivera 2018-02-10 2018-02-12 Phone nullFlavo [facility] [id number] Memoria 19:16:00 05:59:59 Message r Primary 03 l Care [facility] 2018-02-10 2018-02-12 Phone nullFlavo MG [id number] Memoria 19:16:00 05:59:59 Message r Primary 03 l Care [facility] Christel 2018-02-10 2018-02-11 Outpatient [facility] [id number] 13:16:00 23:59:59 03 2018-02-10 2018-02-11 [place] [id number] Memoria 15:00:00 05:59:59 r Primary 18 l Care [facility] [place] nn 2018-02-10 2018-02-11 Outpatient nullFlavo [facility] [id number] Memoria 15:00:00 05:59:59 r Primary 18 l Care [facility] [place] nn 2018-02-10 2018-02-10 [place] [id number] 09:00:00 23:59:59 Jose Ismael 18 2018-02-05 2018-02-06 Outpatient nullFlavo [facility] [id number] Memoria 14:30:00 05:59:59 r Primary 17 l Care [facility] [place] nn 2018-02-05 2018-02-06 [place] [id number] Memoria 14:30:00 05:59:59 r Primary 17 l Care [facility] [place] 2018-02-05 2018-02-05 [place] [id number] 08:30:00 23:59:59 Jose Ismael 17 2018-01-24 2018-01-24 [facility] [id number] [place] 08:00:00 08:00:00 t; KAMILA DOVE Multi Ph pamela TREVIÑO M.D. Specialty denise Rivera 2018-01-15 2018-01-15 [facility] [id number] [place] 13:30:00 13:30:00 t; KAMILA DOVE Multi Ph ysici MOUSTAFA, M.D. Specialty denise Rivera 2017-12-30 2017-12-30 [facility] [id number] [place] 10:30:00 10:30:00 t; KAMILA DOVE Multi Ph ysici MOUSTAFA, M.D. Specialty denise Rivera 2017-12-18 2017-12-18 [facility] [id number] [place] 13:45:00 13:45:00 t; KAMILA DOVE Multi Ph ysici MOUSTAFA, M.D. Specialty deinse Rivera 2017-11-26 2017-11-27 Outpatient nullFlavo [facility] [id number] Memoria 13:45:00 04:59:59 r Primary 16 l Care [facility] Ort[facility] nn 2017-11-26 2017-11-27 Outpatient nullFlavo [facility] [id number] Memoria 13:45:00 04:59:59 r Primary 16 l Care [facility] nn 2017-11-26 2017-11-26 [place] [id number] 08:45:00 23:59:59 Jose Ismael 16 2017-11-26 2017-11-26 Outpatient Orozco, [facility] [place] [id number] 08:45:00 23:59:59 Jose Ismael 16 2017-11-06 2017-11-07 Outpatient nullFlavo [facility] [id number] Memoria 13:45:00 04:59:59 r Primary 15 l Care [facility] [place] nn 2017-11-06 2017-11-07 [place] [id number] Memoria 13:45:00 04:59:59 r Primary 15 l Care [facility] [place] 2017-11-06 2017-11-06 [place] [id number] 08:45:00 23:59:59 Jose Ismael 15 2017-10-08 2017-10-08 Appointmen DEBBIE DOVE [place] [id number] [place] 08:00:00 08:00:00 t; KAMILA DOVE, [facility] pamela TREVIÑO M.D. Specialty denise Rivera 2017-09-20 2017-09-20 Appointmen [facility]KO [facility] Orthopedics [id number] [place] 07:15:00 07:15:00 t[facility].D. 2017-08-30 2017-08-30 Appointmen NIKO [facility] Orthopedics [id number] [place] 07:00:00 07:00:00 t; [facility] M.D. 2017-08-19 2017-08-20 [place] [id number] Memoria 14:15:00 04:59:59 r Primary 14 l Care [facility] [place] 2017-08-19 2017-08-20 [place] [id number] Memoria 14:15:00 04:59:59 r Primary 14 l [facility] [place] 2017-08-19 2017-08-19 [place] [id number] 09:15:00 23:59:59 Jose Ismael 14 2017-08-06 2017-08-07 [place] [id number] Memoria 13:00:00 04:59:59 r Primary 13 l [facility] [place] 2017-08-06 2017-08-07 [place] [id number] Memoria 13:00:00 04:59:59 r Primary 13 l [facility] [place] 2017-08-06 2017-08-06 [id number] 08:00:00 23:59:59 Jose Ismael 13 2017-05-22 2017-06-21 OP Therapy nullFlavo [facility] [id number] Memoria 14:31:00 04:59:00 Patients r [facility] 02 [facility] 2017-05-22 2017-06-21 OP Therapy nullFlavo SMR [facility] [id number] Memoria 14:31:00 04:59:00 Patients r [facility] 02 [facility] 2017-05-22 2017-06-20 Outpatient Palvadi, [id number] 08:31:00 23:59:00 Martha [id number] 2017-06-18 2017-06-19 [place] [id number] Memoria 16:00:00 04:59:59 r Primary 12 l Uriel [place] 2017-06-18 2017-06-19 [place] [id number] Memoria 16:00:00 04:59:59 r Primary 12 l Uriel Keareny 2017-06-18 2017-06-18 [facility] [id number] 11:00:00 23:59:59 Jose Ismael 12 2017-06-03 2017-06-05 Phone nullFlavo MG [id number] Memoria 19:07:00 04:59:59 Message r Primary 02 l Uriel [place] 2017-06-03 2017-06-05 Phone nullFlavo [facility] [id number] Memoria 19:07:00 04:59:59 Message r Primary 02 l Uriel [place] 2017-06-03 2017-06-04 Outpatient MHMG [facility] [id number] 14:07:00 23:59:59 02 2017-05-22 2017-05-24 Outside nullFlavo [facility]MG [id number] Memoria 20:05:00 05:59:59 Medical r Primary 01 l Records Uriel [place] 2017-05-22 2017-05-24 Outside nullFlavo [facility] [id number] Memoria 20:05:00 05:59:59 Medical r Primary 01 l Records Uriel [place] 2017-05-22 2017-05-23 Outpatient MHMG MHMG [id number] 14:05:00 23:59:59 2017-05-21 2017-05-22 [place] [id number] Memoria 22:30:00 05:59:59 r Primary 11 l Uriel [place] 2017-05-21 2017-05-22 [place] [id number] Memoria 22:30:00 05:59:59 r Primary 11 l Uriel [place] 2017-05-21 2017-05-21 Outpatient Orozco, MG [facility] [id number] 16:30:00 23:59:59 Jose Ismael 11 2017-05-21 2017-05-21 Outpatient Orozco, MG [facility] [id number] 16:30:00 23:59:59 Jose Ismael 11 2017-04-15 2017-04-16 Outpatient nullFlavo [facility]MG [id number] Memoria 14:30:00 05:59:59 r Primary 10 l Uriel [place] 2017-04-15 2017-04-16 Outpatient nullFlavo [facility]MG [id number] Memoria 14:30:00 05:59:59 r Primary 10 l Uriel [place] 2017-04-15 2017-04-15 Outpatient Orozco, MG [facility] [id number] 08:30:00 23:59:59 Jose Ismael 10 2017-03-14 2017-03-15 Outpt Diag nullFlavo [facility] [id number] Memoria 19:42:00 05:59:00 Services r Outpatient 03 louis Rivera [place] 2017-03-14 2017-03-15 Outpt Diag nullFlavo [facility] [id number] Memoria 19:42:00 05:59:00 Services r Outpatient 03 louis Rivera [place] 2017-03-14 2017-03-14 Outpatient Orozco, MHOIP MHOIP [id number] 13:42:00 23:59:00 Jose Ismael 03 2017-01-31 2017-03-02 OP Therapy nullFlavo [facility] [place] [id number] Memoria 20:57:00 05:59:00 Patients r TLA [facility] 2017-01-31 2017-03-02 OP Therapy nullFlavo [facility] [place] [id number] Memoria 20:57:00 05:59:00 Patients r TLA [facility] 01 [facility] 2017-01-31 2017-03-01 Outpatient Palvadi, [id number] 14:57:00 23:59:00 Martha [id number] 2017-01-29 2017-01-31 Phone nullFlavo MG [id number] Memoria 21:38:00 05:59:59 Message r Primary 00 l Care [place] 2017-01-29 2017-01-31 Phone nullFlavo MG [id number] Memoria 21:38:00 05:59:59 Message r Primary 00 l Care [place] 2017-01-29 2017-01-30 Outpatient MHMG MHMG [id number] 15:38:00 23:59:59 00 2017-01-29 2017-01-30 Outpatient nullFlavo [facility] [id number] Memoria 15:15:00 05:59:59 r Primary 09 l Care [place] 2017-01-29 2017-01-30 Outpatient nullFlavo [facility] [id number] Memoria 15:15:00 05:59:59 r Primary 09 l Care [place] 2017-01-29 2017-01-29 Outpatient JULIO OrozcoMG [facility]MG [id number] 09:15:00 23:59:59 Jose Ismael 09 2016-12-13 2016-12-13 Bedded nullFlavo [facility] [id number] Memoria 11:32:00 13:30:00 Outpatient r Isabel 02 [facility] 2016-12-13 2016-12-13 Bedded nullFlavo [facility] [id number] Memoria 11:32:00 13:30:00 Outpatient r Isabel 02 [facility] 2016-12-13 2016-12-13 Outpatient JULIO Gilliland MHSE [id number] 06:32:00 08:30:00 Greg [place] 2016-11-29 2016-11-29 Outpatient MHIE MHIE [id number] Memoria 08:30:00 08:30:00 08 louis Isabel 2016-11-13 2016-11-13 Outpatient MHIE MHIE [id number] Memoria 13:00:00 13:00:00 07 [facility] 2016-11-01 2016[facility] [id number] [place] 08:30:00 08:30:00 t; Nicole TIERNEY ans MARC, M.D. 2016-10-11 2016-10-11 Outpatient MHIE MHIE [id number] Memoria 10:15:00 10:15:00 06 louis Rivera 2016-10-03 2016-10-03 Outpatient MHIE MHIE [id number] Memoria 09:15:00 09:15:00 04 louis Miguel 2016-10-03 2016-10-03 Outpatient MHIE MHIE [id number] Memoria 09:00:00 09:00:00 05 louis Rivera 2016-09-04 2016-09-04 Outpatient MHIE MHIE [id number] Memoria 08:30:00 08:30:00 03 louis Rivera 2016-08-09 2016-08-10 [place] [id number] Memoria 11:47:00 04:59:00 Services r Outpatient 01 l [facility] Miguel [place] 2016-08-09 2016-08-10 [place] [id number] Memoria 11:47:00 04:59:00 Services r Outpatient 01 l Imaging Miguel [place] 2016-08-09 2016-08-09 Outpatient PalnabildiJULIOOIP [facility] [id number] 06:47:00 23:59:00 Martha 2016-07-30 2016-07-31 Outpt Diag nullFlavo [facility] [id number] Memoria 13:10:00 04:59:00 Services r Outpatient 00 l Imaging Miguel [place] 2016-07-30 2016-07-31 Outpt Diag nullFlavo [facility] [id number] Memoria 13:10:00 04:59:00 Services r Outpatient 00 l Imaging Miguel [place] 2016-07-30 2016-07-30 Outpatient EFRAIN HernandezP [facility] [id number] 08:10:00 23:59:00 Martha 2016-07-25 2016-07-25 Outpatient MHIE MHIE [id number] Memoria 07:30:00 07:30:00 01 louis Miguel 2016-07-25 2016-07-25 Outpatient MHIE IE [id number] Memoria 07:30:00 07:30:00 02 louis OrtizIsabel 2016-06-12 2016-06-12 Outpatient MHIE MHIE [id number] Memoria 08:30:00 08:30:00 00 louis OrtizMiguel Results Test Description Test Time Test Comments Results Result Comments Source CHEM PANEL 2021-04-19 15:37:00 Test Item Value Reference Range Interpretation Comme nts Chloride Lvl (test code = Chloride Lvl) 107 98-110 [facility]ortal [id number] 15:37:00 Test Item Value Reference Range Interpretation Comments CO2 (test code = CO2) 28 20-32 [facility] [id number] 15:37:00 Test Item Value Reference Range Interpretation Comments Calcium Lvl (test code = Calcium Lvl) 8.9 8.6-10.4 [facility] [id number] 15:37:00 Test Item Value Reference Range Interpretation Comments Total Protein (test code = Total 6.3 6.1-8.1 Protein) [facility] [id number] 15:37:00 Test Item Value Reference Range Interpretation Comments Albumin Lvl (test code = Albumin Lvl) 3.9 3.6-5.1 [place] 286962-02-02 15:37:00 Test Item Value Reference Range Interpretation Comments Globulin (test code = Globulin) 2.4 1.9-3.7 [place] 286962-02-02 15:37:00 Test Item Value Reference Range Interpretation Comments A/G Ratio (test code = A/G Ratio) 1.6 1.0-2.5 [place] [address]-02-02 15:37:00 Test Item Value Reference Range Interpretation Comments Bili Total (test code = Bili Total) 0.4 0.2-1.2 [place] 286962-02-02 15:37:00 Test Item Value Reference Range Interpretation Comments Alk Phos (test code = Alk Phos) 44 37-153 [place] 286962-02-02 15:37:00 Test Item Value Reference Range Interpretation Comments ASPARTATE TRANSAMINASE (test code = 19 10-35 ASPARTATE TRANSAMINASE) [address]02-02 15:37:00 Test Item Value Reference Range Interpretation Comments ALANINE AMINOTRANSFERASE (test code = 12 6-29 ALANINE AMINOTRANSFERASE) [address]02-02 15:37:00 Test Item Value Reference Range Interpretation Comments WBC X 10x3 (test code = WBC X 10x3) 2.8 3.8-10.[address]02-02 15:37:00 Test Item Value Reference Range Interpretation Comments RBC X 10x6 (test code = RBC X 10x6) 4.07 3.80-5.[address]02-02 15:37:00 Test Item Value Reference Range Interpretation Comments Hgb (test code = Hgb) 12.8 11.7-15.[address]02-02 15:37:00 Test Item Value Reference Range Interpretation Comments Hct (test code = Hct) 38.9 35.0-45.0 [address]02-02 15:37:00 Test Item Value Reference Range Interpretation Comments MCV (test code = MCV) 95.6 80.0-100.[address]02-02 15:37:00 Test Item Value Reference Range Interpretation Comments MCH (test code = MCH) 31.4 pg 27.0-33.0 [place] [address]-02-02 15:37:00 Test Item Value Reference Range Interpretation Comments MCHC (test code = MCHC) 32.9 32.0-36.0 [place] 819692-02-02 15:37:00 Test Item Value Reference Range Interpretation Comments RDW (test code = RDW) 12.4 11.0-15.0 [place] [address]-02-02 15:37:00 Test Item Value Reference Range Interpretation Comments Platelet (test code = Platelet) 272 140-400 [place] 819692-02-02 15:37:00 Test Item Value Reference Range Interpretation Comments MPV (test code = MPV) 9.6 7.5-12.5 [place] 819692-02-02 15:37:00 Test Item Value Reference Range Interpretation Comments Neutrophils # (test code = Neutrophils 1509 0242-1327 #) [place] 819692-02-02 15:37:00 Test Item Value Reference Range Interpretation Comments Lymphocytes # (test code = Lymphocytes 787 611-0411 #) [place] 819692-02-02 15:37:00 Test Item Value Reference Range Interpretation Comments Monocytes # (test code = Monocytes #) 291 200-950 [place] 819692-02-02 15:37:00 Test Item Value Reference Range Interpretation Comments Eosinophils # (test code = Eosinophils 101 15-500 #) [place] 819692-02-02 15:37:00 Test Item Value Reference Range Interpretation Comments Basophils # (test code 20 See_Comment [Aut omated message] The = Basophils #) system which generated this result tra nsmitted reference range : <=200. The reference r shaneka was not used to int erpret this result as normal/abnormal . [place] 819692-02-02 15:37:00 Test Item Value Reference Range Interpretation Comments Segs (test code = Segs) 53.9 [place] [address]-02-02 15:37:00 Test Item Value Reference Range Interpretation Comments Lymphocytes (test code = Lymphocytes) 31.[address]02-02 15:37:00 Test Item Value Reference Range Interpretation Comments Monocytes (test code = Monocytes) 10.4 [place] 819692-02-02 15:37:00 Test Item Value Reference Range Interpretation Comments Eosinophils (test code = Eosinophils) 3.6 [facility]EC[facility]JDWHJ2912-95-58 15:37:00 Test Item Value Reference Range Interpretation Comments Basophils (test code = Basophils) 0.7 [facility]wallOzquiqiBICHLA8270-60-60 15:37:00 Test Item Value Reference Range Interpretation Comments Chol (test code = Chol) 204 [facility]wallCbnhddrJDKZEK6871-28-26 15:37:00 Test Item Value Reference Range Interpretation Comments HDL (test code = HDL) 54 [place] 993312-02-02 15:37:00 Test Item Value Reference Range Interpretation Comments Trig (test code = Trig) 143 [facility]DjuexgpTLIMFQ6072-24-22 15:37:00 Test Item Value Reference Range Interpretation Comments LDL (Calculated) (test code = LDL 124 (Calculated)) [place] 993312-02-02 15:37:00 Test Item Value Reference Range Interpretation Comments CHD Risk (test code = CHD Risk) 3.8 [place] 993312-02-02 15:37:00 Test Item Value Reference Range Interpretation Comments Non HDL Chol (test code = Non HDL Chol) 150 [facility]2022-02-02 15:37:00 Test Item Value Reference Range Interpretation Comments Glucose Lvl (test code = Glucose Lvl) 90 65-139 [facility]2022-02-02 15:37:00 Test Item Value Reference Range Interpretation Comments BUN (test code = BUN) 10 7-25 [facility]2022-02-02 15:37:00 Test Item Value Reference Range Interpretation Comments Creatinine Lvl (test code = Creatinine 0.62 0.50-0.99 Lvl) [facility]2022-02-02 15:37:00 Test Item Value Reference Range Interpretation Comments eGFR NON-AFR. HONDURAN (test code = 95 eGFR NON-AFR. HONDURAN) [facility]2022-02-02 15:37:00 Test Item Value Reference Range Interpretation Comments eGFR (test code = eGFR 110 ) [facility]2022-02-02 15:37:00 Test Item Value Reference Range Interpretation Comments B/C Ratio (test code = B/C NOT APPLICABLE 622 Ratio) [place] 286962-02-02 15:37:00 Test Item Value Reference Range Interpretation Comments Sodium Lvl (test code = Sodium Lvl) 140 135-146 [place] 286962-02-02 15:37:00 Test Item Value Reference Range Interpretation Comments Potassium Lvl (test code = Potassium 4.1 3.5-5.3 Lvl) [place] 286962-02-02 15:37:00 Test Item Value Reference Range Interpretation Comments Chloride Lvl (test code = Chloride Lvl) 107 98-110 [place] 286962-02-02 15:37:00 Test Item Value Reference Range Interpretation Comments CO2 (test code = CO2) 28 20-32 [place] 286962-02-02 15:37:00 Test Item Value Reference Range Interpretation Comments Calcium Lvl (test code = Calcium Lvl) 8.9 8.6-10.4 [place] 286962-02-02 15:37:00 Test Item Value Reference Range Interpretation Comments Total Protein (test code = Total 6.3 6.1-8.1 Protein) [place] 286962-02-02 15:37:00 Test Item Value Reference Range Interpretation Comments Albumin Lvl (test code = Albumin Lvl) 3.9 3.6-5.1 [place] 286962-02-02 15:37:00 Test Item Value Reference Range Interpretation Comments Globulin (test code = Globulin) 2.4 1.9-3.7 [place] 286962-02-02 15:37:00 Test Item Value Reference Range Interpretation Comments A/G Ratio (test code = A/G Ratio) 1.6 1.0-2.5 [place] 286962-02-02 15:37:00 Test Item Value Reference Range Interpretation Comments Bili Total (test code = Bili Total) 0.4 0.2-1.2 [place] 286962-02-02 15:37:00 Test Item Value Reference Range Interpretation Comments Alk Phos (test code = Alk Phos) 44 37-153 [place] 286962-02-02 15:37:00 Test Item Value Reference Range Interpretation Comments ASPARTATE TRANSAMINASE (test code = 19 10-35 ASPARTATE TRANSAMINASE) [place] 286962-02-02 15:37:00 Test Item Value Reference Range Interpretation Comments ALANINE AMINOTRANSFERASE (test code = 12 6-29 ALANINE AMINOTRANSFERASE) [facility] TempleRgjvjncULWYHIMQLY0238-03-75 15:37:00 Test Item Value Reference Range Interpretation Comments WBC X 10x3 (test code = WBC X 10x3) 2.8 3.8-10.8 [place] 819692-02-02 15:37:00 Test Item Value Reference Range Interpretation Comments RBC X 10x6 (test code = RBC X 10x6) 4.07 3.80-5.10 [place] 819692-02-02 15:37:00 Test Item Value Reference Range Interpretation Comments Hgb (test code = Hgb) 12.8 11.7-15.[address]02-02 15:37:00 Test Item Value Reference Range Interpretation Comments Hct (test code = Hct) 38.9 35.0-45.0 [address]02-02 15:37:00 Test Item Value Reference Range Interpretation Comments MCV (test code = MCV) 95.6 80.0-100.0 [place] [address]-02-02 15:37:00 Test Item Value Reference Range Interpretation Comments MCH (test code = MCH) 31.4 pg 27.0-33.0 [place] [address]-02-02 15:37:00 Test Item Value Reference Range Interpretation Comments MCHC (test code = MCHC) 32.9 32.0-36.0 [place] [address]-02-02 15:37:00 Test Item Value Reference Range Interpretation Comments RDW (test code = RDW) 12.4 11.0-15.0 [place] [address]-02-02 15:37:00 Test Item Value Reference Range Interpretation Comments Platelet (test code = Platelet) 272 140-400 [place] 819692-02-02 15:37:00 Test Item Value Reference Range Interpretation Comments MPV (test code = MPV) 9.6 7.5-12.5 [place] 819692-02-02 15:37:00 Test Item Value Reference Range Interpretation Comments Neutrophils # (test code = Neutrophils 1509 5633-0761 #) [place] 819692-02-02 15:37:00 Test Item Value Reference Range Interpretation Comments Lymphocytes # (test code = Lymphocytes 258 303-6295 #) [facility] TempleJwnagbqHDYTZGEWJY0625-06-31 15:37:00 Test Item Value Reference Range Interpretation Comments Monocytes # (test code = Monocytes #) 291 200-950 [facility] TempleIukdmgqYHWYDGSXRZ5832-71-02 15:37:00 Test Item Value Reference Range Interpretation Comments Eosinophils # (test code = Eosinophils 101 15-500 #) [facility] TempleMzqilvcCUQBSVHFZO1322-81-84 15:37:00 Test Item Value Reference Range Interpretation Comments Basophils # (test code 20 See_Comment [Aut omated message] The = Basophils #) system which generated this result tra nsmitted reference range : <=200. The reference r shaneka was not used to int erpret this result as normal/abnormal . [facility] TempleTvmdyroRHTRXSGQDK5304-14-95 15:37:00 Test Item Value Reference Range Interpretation Comments Segs (test code = Segs) 53.9 [facility] TempleLfdxurtBCXRXBBLGC2144-90-91 15:37:00 Test Item Value Reference Range Interpretation Comments Lymphocytes (test code = Lymphocytes) 31.4 [facility] TempleLhohcjhCZAXRMTERF8843-46-58 15:37:00 Test Item Value Reference Range Interpretation Comments Monocytes (test code = Monocytes) 10.4 [facility] TempleSiunzrnBYUJHXHZSN0460-83-19 15:37:00 Test Item Value Reference Range Interpretation Comments Eosinophils (test code = Eosinophils) 3.6 [facility] TempleSuaxljdJGDXAWRJZF6978-65-44 15:37:00 Test Item Value Reference Range Interpretation Comments Basophils (test code = Basophils) 0.7 [facility]oundAyceqpwWBPICN6787-46-69 15:37:00 Test Item Value Reference Range Interpretation Comments Chol (test code = Chol) 204 [facility] MoundOrokoeyAQRGTT9544-83-97 15:37:00 Test Item Value Reference Range Interpretation Comments HDL (test code = HDL) 54 [place] 993312-02-02 15:37:00 Test Item Value Reference Range Interpretation Comments Trig (test code = Trig) 143 [facility] MoundJqexcfeLARPGG7433-33-33 15:37:00 Test Item Value Reference Range Interpretation Comments LDL (Calculated) (test code = LDL 124 (Calculated)) [facility] MoundIcaziikRLRXPR9663-76-70 15:37:00 Test Item Value Reference Range Interpretation Comments CHD Risk (test code = CHD Risk) 3.8 [facility]wallMgcexdvTDYAHZ0685-91-56 15:37:00 Test Item Value Reference Range Interpretation Comments Non HDL Chol (test code = Non HDL Chol) 150 [place] 286962-02-02 15:37:00 Test Item Value Reference Range Interpretation Comments Glucose Lvl (test code = Glucose Lvl) 90 65-139 [place] 286962-02-02 15:37:00 Test Item Value Reference Range Interpretation Comments BUN (test code = BUN) 10 7-25 [place] 286962-02-02 15:37:00 Test Item Value Reference Range Interpretation Comments Creatinine Lvl (test code = Creatinine 0.62 0.50-0.99 Lvl) [place] 286962-02-02 15:37:00 Test Item Value Reference Range Interpretation Comments eGFR NON-AFR. HONDURAN (test code = 95 eGFR NON-AFR. HONDURAN) [place] 286962-02-02 15:37:00 Test Item Value Reference Range Interpretation Comments eGFR (test code = eGFR 110 ) [place] 286962-02-02 15:37:00 Test Item Value Reference Range Interpretation Comments B/C Ratio (test code = B/C NOT APPLICABLE 6-22 Ratio) [place] 286962-02-02 15:37:00 Test Item Value Reference Range Interpretation Comments Sodium Lvl (test code = Sodium Lvl) 140 135-146 [place] 286962-02-02 15:37:00 Test Item Value Reference Range Interpretation Comments Potassium Lvl (test code = Potassium 4.1 3.5-5.3 Lvl) [facility] Notes Date/Time Note Provider Source 2019-08-04 11:30:52-00:00 MAMI [place] BILATERAL DIGITAL SCREENING MAMMOGRAM 3D/2D WITH CAD: 08/04/2019 CLINICAL: /Routine. Current study was evaluated with a Research And Development Researcher d Detection (CAD) system. COMPARISON:Comparison is mad e to exam dated: 03/14/2017 mammogram - [facility]. TECHNIQUE: Digital Breast To mosynthesis was performed and utilized for Interpretation. Current study was also evaluated with a Computer Aided Detection (CAD) system. FINDINGS: There are scattered fibroglandular densities in both breasts. Bilateral breast implants ar e present. There are benign calcifications in both breasts. No significant masses, calci fications, or other findings are seen in either breast. There has been no significant interval change. IMPRESSION: BENIGN RECOMMENDATION:There is no m ammographic evidence of malignancy. A 1 year screening mammogram is recommended.(08/04/2020) This exam was interpreted at [id number] for JULIO Capo. Professional services are pr ovided by the [employer] [place] [facility]. Zurdo Curtis M.D., cm/penrad:08/04/2019 13:00:25 Store Team Member(s): Arabella Gonzales [facility] letter sent: BI-RADS 1/2 Mammogram BI-RADS: 2 Benign 2018-05-28 08:31:00-00:00 Clinical Indication: M99.83 Other biomechanical lesions of lumbar region - M99.83 Other biomechanical lesions of lumbar region [facility]STANCE [place] Comparison: Magnetic resonance imaging L-spine d ated 08/09/2016 TECHNIQUE: Multiplanar T1, T 2, STIR weighted noncontrast MRI of the lumbar spine is performed on the 1.5 Franchesca magnet. FINDINGS: ALIGNMENT AND GENERAL ASSESS MENT: There is normal alignment of the lumbar spine. The bone marrow is normal for the patient's age. Scattered degenerative marrow changes are noted. There is no fr acture. The anterior and pos terior paraspinal soft tissues are normal. The conus medullaris ends at the L1 level. For the sake of nomenclature, five lumbar vertebrae are assumed. DISC SPACES: T12-L1: The disc is normal. There is no significant central canal or foraminal stenosis. The facet joints are unremarkable. L1-L2: The disc is normal. T here is no significant central canal or foraminal stenosis. The facet joints are unremarkable. L2-L3: The disc is normal. T here is no significant central canal or foraminal stenosis. The facet joints are unremarkable. L3-L4: Disc desiccation with mild height loss and a small posterior circumferential disc bulge. Small annular fissure is noted. Mild left neural foraminal narrowing. The facet joints are unremarkable. L4-L5: Disc desiccation without sig nificant height loss and a small posterior circumferential disc bulge. Mild bilateral neural foraminal narrowing. The facet joints are unremarkable. L5-S1: The disc is normal. M oderate right neural foraminal narrowing. The facet joints are unremarkable. OTHER: The remaining visuali zed soft tissue and osseous structures are grossly unremarkable. IMPRESSION: Compared to 08/09/2016, unch anged multilevel degenerative changes result most prominently in: 1. L3/L4 small annular fissure 2. L5/S1 moderate right neural foraminal narrowi ng 3. No significant central canal effacement SL: NURA 2017-03-14 13:54:39-00:00 JULIO Scanlon BILATERAL DIGITAL SCREENING MAMMOGRAM 3D/2D WITH CAD: 03/14/2017 CLINICAL: /+Silicone Breast Implants. Screening Mmg Asx. Current study was evaluated with a Research And Development Researcher d Detection (CAD) system. COMPARISON:No prior exams were available for [facility]. TECHNIQUE: Digital Breast To mosynthesis was performed and utilized for Interpretation. Current study was also evaluated with a Computer Aided Detection (CAD) system. FINDINGS: There are scattered fibroglandular densities in both breasts. Bilateral breast implants ar e present. There are benign calcifications in both breasts. No significant masses, calci fications, or other findings are seen in either breast. IMPRESSION: BENIGN RECOMMENDATION:There is no m ammographic evidence of malignancy. A 1 year screening mammogram is recommended.(03/15/2018) This exam was interpreted at [id number] for ALLIE Harris 15. Professional services are pr ovided by the [employer] [place] [facility]. Zurdo Curtis M.D. cm/penrad:03/15/2017 10:17:08 Store Team Member(s): Arabella Gonzales [facility] Capo letter sent: BI-RADS 1/2 Mammogram BI-RADS: 2 Benign 2016-08-09 07:50:46-00:00 MRI LUMBAR SPINE WITHOUT CONTRAST JULIO Scanlon INDICATION: Lumbar back pain with radiculopathy, M54.16 Radiculopathy, lumbar region COMPARISON: Lumbar spine radiograph 07/30/2016 DISCUSSION: The usual five nonrib-bearin g lumbar-type vertebral bodies are presumed present. Alignment: There is mild antilordotic cu rvature at the thoracolumbar junction. Vertebral bodies: Degenerati ve endplate changes are noted at multiple levels, most prominent at L2-L3 and L3-L4. The vertebral bodies are otherwise normal in height and signal, from T12 through the distal sacrum. Distal spinal cord: Normal i n signal and morphology. The tip of the conus is at the L1-L2 level. Paraspinal soft tissues: No signal abnormalities are visualized. Disc spaces, spinal canal and foramina: T12-L1 and L1-L2: The disks are normal in heig ht and signal. There is bilateral facet arthrosis, without spinal canal or foraminal stenosis. L2-L3: Disc height is maintained. M ild disc bulge and facet arthrosis result in mild narrowing of the spinal canal and right foramen. The left foramen is patent. L3-L4: There is annular fissure of the disc. Disc height is maintained. Asymmetric left disc bulge and facet arthrosis result in moderate spinal canal stenosis, mild right foraminal stenosis, and moderate to severe left foraminal stenosis. L4-L5: The disc is normal in height and signal. Disc bulge and facet arthrosis contribute to moderate spinal canal stenosis and moderate to severe bilateral foraminal stenosis. L5-S1: There is annular fissure of the disc. Disc height is maintained. Asymmetric right disc bulge and facet arthrosis result in mild narrowing of the spinal canal and severe right foraminal stenosis. The left foramen is patent. IMPRESSION: 1. Spondylosis results in va rying degrees of spinal canal and foraminal stenosis, as described. Spinal canal stenosis appears moderate at worst, at L3- L4 and L4-L5. Foraminal stenosis is most severe at L5-S1, on the right side. 2. Annular fissure of the L3-L4 and L5-S1 discs. SL:2016-08-09 07:05:00-00:00 MRI CERVICAL SPINE WITHOUT CONTRAST [facility] [place] INDICATION: Cervical spine p ain with radiculopathy, M54.12 Radiculopathy, cervical region COMPARISON: Cervical spine radiograph 07/30/2016 DISCUSSION: Alignment: Vertebral body alignment is within no rmal limits. Craniocervical junction: No significant abnormalities. The foramen magnum is patent. Vertebral bodies: Normal in height and signal, f rom C2 through T4. Spinal cord: Normal in signa l and morphology, from the cervicomedullary junction through T4-T5. Paraspinal soft tissues: No signal abnormalities are visualized. Disc spaces, spinal canal and foramina: C2-C3: The disc is normal in height and signal. Arthrosis results in severe left foraminal stenosis. The spinal canal and right foramen are patent. C3-C4: The disc is normal in height and signal. Arthrosis results in severe left foraminal stenosis and mild right foraminal stenosis. The spinal canal is patent. C4-C5: There is annular fissure of the disc. Disc height is maintained. Arthrosis results in moderate to severe left foraminal stenosis. The spinal canal and right foramen are patent. C5-C6: There is annular fissure of the disc and mild loss of disc height. Arthrosis results in mild to moderate right foraminal stenosis. The spinal canal and left foramen are patent. C6-C7 and C7-T1: The disks are normal in heig ht and signal. There is no significant arthrosis. The spinal canal and foramina are patent. IMPRESSION: 1. Spondylosis results in va rying degrees of foraminal stenosis, as described. Foraminal stenosis appears most severe, on the left side, at C2-C3 and C3-C4. There is no spinal canal stenosis. 2. Annular fissure of the C4-C5 and C5-C6 discs. SL:2016-07-30 09:55:00-00:00 REASON FOR EXAM: M54.16. [facility] COMPARISON: None. FINDINGS: AP and lateral vie ws of the lumbar spine. 3 images are submitted. There are 5 lumbar vertebral bodies. There is slight curvature of the lumbar spine convex to the right with apex at L3. There is spondylosis of the lumbar spine with multilevel anterior and lateral marginal osteophytes. There is an anterior annular calcification at T10-T11. There is mild to moderate diffuse disc space na rrowing at L2-L3. There is m ild left-sided disc space narrowing at L3-L4. There is mild posterior disc space narrowing at L4-L5 and L5-S1. There is no compression deformity. The pedicles appear intact. The sacroiliac joints are un remarkable. A subcentimeter cyst is suspected in the marrow of the superior left acetabulum. IMPRESSION: 1. Slight curvature of the lumbar spine convex t o the right. 2. Degenerative changes of the lumbar spine as d escribed above. SL: 2016-07-30 09:55:00-00:00 CLINICAL INDICATION: M54.12. [facility] COMPARISON: None. FINDINGS: A complete cervica l spine series was performed. 6 images are submitted. There is straightening of the normal cervical lordosis. There is moderate bilateral bony neural foraminal narrowing secondary to facet arthropathy at C3-C4. There is mild left bony neural foraminal narrowing secondary to facet arthropathy at C4-C5. There are small anterior marginal ost eophytes at C5-C6. There is no significant disc space narrowing. There is a small ligamentous calcification in the soft tissues posterior to the spinous process at C5. There is no demonstrable fracture, dislocation or prevertebral soft tissue swelling. IMPRESSION: 1. Straightening of the normal cervical lordosis . 2. Degenerative changes of the cervical spine as described above. SL: 15 2016-07-30 08:30:00-00:00 EXAM: MRI BRAIN WITHOUT CONTRAST [facility] DATE: 07/30/2016 8:30 AM CDT INDICATION: R41.3 Other amnesia. ADDITIONAL INFORMATION AND CONTRAST: None. COMPARISON: None. TECHNIQUE: Multiplanar, mutisequence MRI of the brain without contrast. FINDINGS: Motion artifact degrades image quality . Diffusion weighted images demonstrate no focal s ignal abnormality. There are several scattered nonspecific foci of T2/FLAIR signal abnormality may reflect migraine-related change or mild chronic small vessel ischemic change. No acute intracranial hemorrhage detected. T he ventricles are normal in size and symmetric. No extra-axial fluid collection identified. Nassar-white distinction is preserved. No mass lesion or midline shift detected. The intracranial arterial and venous str uctures demonstrate normal flow voids. Mild chronic inflammatory change of the paranasa l sinuses. IMPRESSION: 1. Limited study as above. N o definite acute infarct or intracranial hemorrhage detected. 2. Several scattered nonspec ific foci of T2/FLAIR signal abnormality may reflect migraine-related change or mild chronic small vessel ischemic change. SL: [id number]
[2022-10-02 12:19] VITALS: BMI 28.3
[2022-10-02] MEDS ORDERED: PNEUMOCOCCAL VACCINE 0.5 ML IMVAC ONE (14:00)
[2022-10-02] MEDS: GABAPENTIN 300 MG CAP PO SCH ×3 (14:00→20:35)
[2022-10-02] MEDS: PANTOPRAZOLE 40MG TABLET PO SCH (14:20)
--- NOTE | 2022-10-02 14:41 | P.PN ---
Date of Service: 10/03/22 Subjective: felt dizzy after walking with PT BP low overnight, better this morning no nausea / vomiting / diarrhea +Left hip pain, slightly improved ROS: 10 point ROS as noted above, otherwise negative Physical Exam: GEN: Alert, oriented, NAD, Jorgensen in place HEENT: Normal conjunctiva, sclera anicteric CV: Regular rate and rhythm, no edema Pulm: Nonlabored respirations on room air ABD: Soft, nontender, nondistended Integumentary: Left hip incision, dressing in place Neuro: Normal speech, normal affect Jorgensen in place vitals reviewed Problem List: Left hip osteoarthritis, now s/p left MARCIA (10/02) GERD Peripheral neuropathy Left hip osteoarthritis, now s/p left MARCIA (10/02) s/p left MARCIA (10/02) Monitor H&H. Transfuse if hgb < 7 receiving peggy-operative antibiotics PT consult PRN pain medication BP low to low-normal; will give IV bolus, suspect some dehydration ROS otherwise negative GERD Continue Protonix. Peripheral neuropathy Continue gabapentin. VTE: Lovenox Code: Full Dispo: Home, per ortho
[2022-10-02 17:16] LABS: Hematocrit 32.4 % (36.0-45.0)
[2022-10-02 17:31] LABS: Magnesium 2.1 mg/dL (1.6-2.4); Phosphorus 4.3 mg/dL (2.5-4.9)
[2022-10-02] MEDS: CEFAZOLIN 1 GM in NA CHLORIDE 0.9% 50 ML IVPB SCH (19:11)
[2022-10-03] MEDS: CEFAZOLIN 1 GM in NA CHLORIDE 0.9% 50 ML IVPB SCH ×2 (00:48→09:55)
[2022-10-03 04:14] LABS: Hematocrit 31.5 % (36.0-45.0); Lymphocytes % 12.2 % (15.3-44.8); MCV 94.3 fL (80-100); MPV 7.3 fL (7.6-11.3); RBC Red Blood Cell Count 3.34 M/uL (3.86-4.86)
[2022-10-03 04:16] LABS: Potassium 3.2 mEq/L (3.5-5.1)
[2022-10-03] MEDS ORDERED: POTASSIUM 25 MEQ EFFERV TAB PO ONE (06:00)
[2022-10-03] MEDS: PANTOPRAZOLE 40MG TABLET PO SCH (06:04)
[2022-10-03] MEDS: GABAPENTIN 300 MG CAP PO SCH ×3 (09:54→21:13)
[2022-10-03] MEDS: ENOXAPARIN 40 MG/0.4 ML SQ SCH (09:55)
[2022-10-03] MEDS ORDERED: NA CHLORIDE 0.9% 500 ML IV ONE (10:17)
[2022-10-03] MEDS: HYDROCODONE/APAP 7.5/325 MG TAB PO PRN (15:10)
--- NOTE | 2022-10-03 18:36 | RAD REPORT ---
[facility] CLINICAL HISTORY: Chest pain COMPARISON: September 28, 2022 FINDINGS: Area of subsegmental atelectasis mid right lung. Remainder of the lungs appear clear. Heart is normal size
[2022-10-03] MEDS ORDERED: POTASSIUM CL SA 10 MEQ TAB PO ONE (20:53)
[2022-10-04 02:52] LABS: Absolute Lymphocytes (CBC) 1.3 K/uL (0.7-4.9); Hematocrit 30.4 % (36.0-45.0); Lymphocytes % 9.1 % (15.3-44.8); MCV 94.7 fL (80-100); MPV 7.6 fL (7.6-11.3); RBC Red Blood Cell Count 3.21 M/uL (3.86-4.86)
[2022-10-04 03:00] LABS: Potassium 3.6 mEq/L (3.5-5.1)
[2022-10-04] MEDS: HYDROCODONE/APAP 7.5/325 MG TAB PO PRN ×3 (04:30→19:59)
[2022-10-04] MEDS: PANTOPRAZOLE 40MG TABLET PO SCH (06:39)
--- NOTE | 2022-10-04 07:14 | P.PN ---
Date of Service: 10/04/22 Subjective: febrile yesterday (101.8) now afebrile CXR with atelectasis able to ambulate for longer durations with less verbal cueing compared to previous sessions per PT +left hip pain slowly improving snider removed, voiding without issue ROS: 10 point ROS as noted above, otherwise negative Physical Exam: GEN: Alert, oriented, NAD HEENT: Normal conjunctiva, sclera anicteric CV: Regular rate and rhythm, no edema Pulm: Nonlabored respirations on room air ABD: Soft, nontender, nondistended Integumentary: Left hip incision, dressing in place Neuro: Normal speech, normal affect vitals reviewed Problem List: Left hip osteoarthritis, now s/p left MARCIA (10/02) GERD Peripheral neuropathy Chronic Pain Left hip osteoarthritis, now s/p left MARCIA (10/02) s/p left MARCIA (10/02) Monitor H&H. Transfuse if hgb < 7 receiving peggy-operative antibiotics 10/04 - fever overnight (101.8) now afebrile CXR with atelectasis suspect fever secondary to atelctasis and post-op inflammation PT consult able to ambulate for longer durations with less verbal cueing compared to previous sessions will need RW prior to discharge PRN pain medication IVF DCd ROS otherwise negative GERD Continue Protonix Peripheral neuropathy Continue gabapentin Chronic Pain PRN pain medication VTE: Lovenox Code: Full Dispo: Home, per ortho will need RW prior to discharge ok for dc home tody
[2022-10-04 08:39] VITALS: O2SAT 92
[2022-10-04] MEDS ORDERED: POTASSIUM CL SA 10 MEQ TAB PO ONE (09:00)
[2022-10-04] MEDS: GABAPENTIN 300 MG CAP PO SCH ×3 (09:17→19:59)
[2022-10-04] MEDS: ENOXAPARIN 40 MG/0.4 ML SQ SCH (09:18)
[2022-10-04 16:40] LABS: Specific Gravity 1.015 (1.005-1.030); Urine Bacteria None Seen /HPF (<20); Urine Bilirubin NEGATIVE (Negative); Urine Blood Negative (Negative); Urine Clarity Extremely Turbid (Clear); Urine Color Yellow (Yellow); Urine Glucose NEGATIVE (Negative); Urine Mucus Slight /HPF (None Seen); Urine Protein TRACE (Negative); Urine RBC <5 /HPF (None Seen); Urine Urobilinogen Normal (Normal); Urine pH 5.5 (5.0-7.0)
[2022-10-04 17:50] VITALS: BP 98/60; TEMP 98.2
== END 2022-10-04 21:06 | disposition home health service (06) ==
LOC: OR 05:57 → 2ND 09:19 → INTOOBSV 09:19
PROVIDERS: ADMIT Orthopaedic Surgery; ATTEND Orthopaedic Surgery
PROC: 0RRK0JZ Replacement of Left Shoulder Joint with Synthetic Substitute, Open Approach (ICD-10-PCS; principal; 2022-10-02 07:00)
DX: M16.12 Unilateral primary osteoarthritis, left hip (principal); K21.9 Gastro-esophageal reflux disease without esophagitis; G62.9 Polyneuropathy, unspecified
CPT/HCPCS: 93005 ×2; 85025 ×3; 81001; 80048 ×2; 36415 ×3; 86900; 83735 ×2; 86850; 84100; 84132; 85610; 80061; 86901; 88305; 88311; 85730; 86920 ×2; 85018 ×2; 85014 ×2; 81003; 83036; 80053; 71045; 71046; 73501; 97110; 97116 ×3; 97161; 97530 ×3; 94760 ×2; 27130; J2704 ×2; J0171; J1200 ×2; J2001; J1650 ×2; J2250; J3010; J2405; J7120 ×2; J7040; J0690 ×3; G0378